=== PATIENT | male | born 1975 | race Caucasian/White ===

== ENCOUNTER 2022-10-21 15:16 | Outpatient (CLI) | payer OTHER, SELFPAY | END 2022-10-21 15:17 | disposition home or self-care (01) | LOC: ANHAUDIO 15:17 | PROVIDERS: PCP Nurse Practitioner Family; Visit Provider Nurse Practitioner Family | DX: H91.93 Unspecified hearing loss, bilateral (principal) | CPT/HCPCS: 99199 ==

== ENCOUNTER 2024-11-01 12:46 | Outpatient (CLI) | payer OTHER, SELFPAY ==
--- OUTSIDE RECORDS SUMMARY | 2024-11-01 13:24 | XMS_ITS ---
Author Organization [facility] Care Team Providers Care Research Test Engine Evaluator Name Role Phone COLIN GATES Unavailable Unavailable Ampadu, Kendall Unavailable Unavailable Allergies and adverse reactions No Known Allergies Care Team Name Role Address Phone Organization Dates Kendall Ampadu PCP [address] [place], [address], [place] (Office): : [facility] 03/25/2021 - 04/09/2021 COLIN GATES Attending Physician [address] [place], [address], [place] (Cell): [facility] 03/25/2021 - 04/09/2021 Immunizations Immunization Status Vaccine Details Vaccine Code CodeSystem Luis Angel e Notes SARS-COV-2 (COVID-19) completed SARS-COV-2 (COVID-19) vaccine, mRNA, spike protein, LNP, preservative free, 100 mcg/0.5mL dose or 50 mcg/0.25mL dose Mfg: Moderna Step 2 of Multi-step with next step required 207 CVX created date: 03/31/2021 administered date: 01/01/2021 SARS-COV-2 (COVID-19) completed SARS-COV-2 (COVID-19) vaccine, mRNA, spike protein, LNP, preservative free, 100 mcg/0.5mL dose or 50 mcg/0.25mL dose Mfg: Moderna Step 1 of Multi-step with next step required 207 CVX created date: 03/31/2021 administered date: 11/30/2020 Mental Status Section Date Assessment Total Score Description 04/09/2021 BIMS 13 cognitively int act CAM 0 No delirium ind icated PHQ-9 02 minimal depress ion 04/02/2021 BIMS 12 moderate cognit stephane impairment CAM 0 No delirium ind icated PHQ-9 02 minimal depress ion Problems Problem # Description Date of onset Resolved Date Code CodeSystem Concern Status 1 ALCOHOL ABUSE WITH WITHDRAWAL, UNSPECIFIED 03/25/[address] active 2 ANEMIA, UNSPECIFIED 03/25/[address] active 3 ANXIETY DISORDER, UNSPECIFIED 03/25/[address] active 4 DYSPHAGIA, OROPHARYNGEAL PHASE 03/25/[address] active 5 ELEVATION OF LEVELS OF LIVER TRANSAMINASE LEVELS 03/25/[address] active 6 ESSENTIAL (PRIMARY) HYPERTENSION 03/25/[address] active 7 HYPERLIPIDEMIA, UNSPECIFIED 03/25/[address] active 8 MAJOR DEPRESSIVE DISORDER, SINGLE EPISODE, UNSPECIFIED 03/25/[address] active 9 MUSCLE WEAKNESS (GENERALIZED) 03/25/[address] active 10 NEED FOR ASSISTANCE WITH PERSONAL CARE 03/25/[address] active 11 NICOTINE DEPENDENCE, CIGARETTES, UNCOMPLICATED 03/25/[address] active 12 OTHER ABNORMALITIES OF GAIT AND MOBILITY 03/25/[address] active 13 PERSONAL HISTORY OF OTHER DISEASES OF THE DIGESTIVE SYSTEM 03/25/[address] active 14 POLYNEUROPATHY, UNSPECIFIED 03/25/[address] active 15 RESTLESS LEGS SYNDROME 03/25/[address] active 16 SCHIZOAFFECTIVE DISORDER, UNSPECIFIED 03/25/[address] active 17 UNSPECIFIED CONVULSIONS 03/25/[address] active Reason for Referral No Reasons for Referral Entered Social History Social History Observation Description Start Date End Date Code Code System Current Smoking Status Tobacco smoking consumption unknown 694718720 SNOMED CT Sex Assigned At Male 1975 82661-[address] [facility] Vital Signs Code Code System Vitals Name Values and Units Timing Information 82220-[address] [facility] Pain Level Value=0.0 04/09/2021 33616-[address] [facility] Weight Klcll=545.0 Units=Lbs 87301-[address] [facility] O2 % BldC Oximetry Value=95.0 Units= % 03/29/2021 9279-[address] [facility] Respiratory Rate Value=22.0 Units=/m in 03/29/2021 8867-[address] [facility] Heart rate Ijofq=876.0 Units=/min 03/29/2021 8310-[address] [facility] Body Temperature Value=98.6 Units= F 03/29/2021 8462-[address] [facility] Blood Pressure-Diastolic Value=88 Un its=mmHg 03/29/2021 8480-[address] [facility] Blood Pressure-Systolic Ljupw=593 Un its=mmHg 03/29/2021
--- OUTSIDE RECORDS SUMMARY | 2024-11-01 13:24 | XMS_ITS | Patient Health Record ---
Author Organization [facility] Address [address] [place] [address] Care Team Providers Care Clinical Research Director Name Role Phone Brian Mendez Primary Care Provider [phone] Crystal Alvarez Unavailable [phone] Allergies Allergen (clinical drug ingredient) Drug/Non Drug Allergy documented on EMR Reaction Allergy Type Onset Date Status No Known Drug Allergy Unknown Drug Allergy Active No Known Food Allergy Unknown Drug Allergy Active Reason For Referral No Information Medications Medication SIG (Take, Route, Frequency, Duration) Notes Start Date End Date Status Rosuvastatin Calcium 20 MG 1 tablet Oral ly Once a day Active Gabapentin 800 MG 1 tablet Orally twic e a day Active NIFEdipine ER 30 MG 1 tablet Orally Once a day Active Thiamine HCl 100 MG 1 tablet Orally Once a day Not-Taking Multivitamin Adult - Orally for 30 days Not-Taking QUEtiapine Fumarate 200 MG 1 tablet Oral ly Once a day for 30 days Active Ibuprofen 200 MG 1 tablet with food o r milk as needed Orally Three times a day Active Folic Acid 1 MG 1 tablet Orally Once a day Not-Taking Amitriptyline HCl 25 MG 1 tablet Orally Once a day for 30 days Active hydrOXYzine HCl 25 MG 1 tablet as needed for anxiety Orally twice a day for 30 days Active carBAMazepine 200 MG 1 tablet Orally Twi ce a day Not-Taking Social History Tobacco Use: Social History Observation Description Date Details (start date - stop date) Current Smoker NA - NA Sex Assigned At : Social History Observation Description Sex Assigned At Male Dont use, Tobacco Use/Smoking Question Answer Notes Are you a current every day smoker Alcohol Screen (Audit-C) Question Answer Notes Did you have a drink contain ing alcohol in the past year? No How often did you have a dri nk containing alcohol in the past year? 4 or more times a week (4 points) How many drinks did you have on a typical day when you were drinking in the past year? 10 or more drinks (4 points) How often did you have 6 or more drinks on one occasion in the past year? Daily or almost daily (4 points) Points 12 Interpretation Positive PRAPARE Question Answer Notes Date Completed/Updated: 03/14/2018 What is your current housing situation? I do not have housing (staying with others, in a hotel, in a penitentiary, living outside on the street, on a beach, or in a park) Are you worried about losing your housing? No What is the highest level of school that you have finished? More than high school What is your current work situation? Unemployed and seeking work In the past year, have you o r any family members you live with been unable to get any of the following when it was really needed? Check all that apply I do not have problems meeting my needs Has lack of transportation k ept you from medical appointments, meetings, work or from getting things needed for daily living? Yes, it has kept me from medical appointments or from getting my medications,Yes, it has kept me from non-medical meetings, appointments, work, or getting things needed for daily living How often do you see or talk to people that you care about and feel close to? (For example: talking to friends on the phone, visiting friends or family, going to oriental orthodox or club meetings) More than 5 times a week How stressed are you? Stress is when someone feels tense, nervous, anxious, or can\t sleep at night because their mind is troubled Quite a bit In the past year have you sp ent more than 2 nights in a row in a long-term, long term, fdc center, or juvenile correctional facility? No Are you a refugee? No What country are you from? [place] Do you feel physically and e motionally safe where you currently live? Yes In the past year, have you b een afraid of your partner or ex-partner? No PRAPARE Score: 8 Tobacco Control (Standard) Question Answer Notes Tobacco use: Current every day smoker Additional Findings: Tobacco user Light cigarett e smoker (1-9 cigs/day) Section Notes: Problems Problem Type SNOMED Code ICD Code Onset Dates Problem Status W/U Status Risk Notes Problem Tobacco user (911691785) Nicotine dependence, unspecified, uncomplicated (F17.200) Active confirmed Problem Hypertension (53869010) Hypertension (I10) 3 Active confirmed Problem Depression (422670732) Depression (F32.9) 2 Active confirmed Problem Mood disorder (14210596) Mood disorder (F39) 3 Active confirmed Problem Substance abuse (26683140) Substance abuse (F19.10) Active confirmed Problem Anxiety (84698290) Anxiety (F41.9) Active confirmed Problem Neuropathy (596822496) Neuropathy (G62.9) Active confirmed Problem Disorder caused by alcohol (disorder) (762424164) Alcohol use disorder (F10.99) Active confirmed Problem Alcohol dependence (56728031) Alcohol use disorder, severe, dependence (F10.20) Active confirmed Problem Tooth infection (K04.7) Active confirmed Vital Signs Heart Rate 102 /min 04/10/2024 Temperature 97.3 degrees Fahrenheit 04/10/2024 Respiratory Rate 18 /min 04/10/2024 Blood pressure diastolic 60 mm Hg 04/10/2024 Oximetry 98 % 04/10/2024 Height 72 in 04/10/2024 Blood pressure systolic 122 mm Hg 04/10/2024 Weight 177.8 lbs 04/10/2024 BMI 24.11 kg/m2 04/10/2024 Encounters Encounter Location Date Provider Diagnosis [address] [place] [address] 04/10/2024 Crystal Alvarez Nicotine dependence, unspecified, uncomplicated F17.200 ; Alcohol use disorder F10.99 ; Mood disorder F39 ; Depression F32.9 ; Anxiety F41.9 and Therapeutic drug monitoring Z51.81 Assessments Encounter Date Diagnosis (ICD Code) Assessment Notes Treatment Notes Treatment Clinical Notes Section Notes 04/10/2024 Nicotine dependence, unspecified, uncomplicated (ICD-10 - F17.200) 04/10/2024 Alcohol use disorder (ICD-10 - F10.99) Pt reports that he has been drinking daily since being out of his meds for the past week. Educated pt on importance of not drinking alcohol while taking RX meds. Pt reports that he has been talking with a heading repairer at [facility] about possible detox/rehab 04/10/2024 Mood disorder (ICD-10 - F39) Pt reports that he has been on Seroquel for years and reports that he is doing well on med at this time. RN called Ankit in [place] and verified medication list/doses t 04/10/2024 Depression (ICD-10 - F32.9) Will refill Amitriptyline at this time. Pt reports that he has been on medication retirement and is tolerating medication well. Pt denies SI/Hi at this time. Pt is not interested in therapy at this time. 04/10/2024 Anxiety (ICD-10 - F41.9) Will refill Hydroxyzine at this time. 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 Educated pt NOT to drink alcohol while taking RX meds. Routine labs ordered at this time. 04/10/2024 Therapeutic drug monitoring (ICD-10 - Z51.81) 04/10/2024 Other Discussed sleep hygiene and caffeine intakeDiscussed medication efficacy and purpose Also discussed medication interactions, risks, benefits and side effects. No additional questions concerning medications at this time.Discussed treatment planReturn to clinic 4 weeksRoutine labs ordered; pt agrees to call for an appt as labs cannot be completed today due to computer issues Encouraged counselingDiscussed treatment plan; patient is agreeable and accepting of treatment plan. Patient denies further questions or concerns at this time. Reasons, potential benefits, interactions and side effects of all medications were discussed.The Patient/Guardian asked appropriate questions, appeared to understand the answers, and decided to accept the treatment and continue being followed.The Patient/Guardian is aware of the need to contact the office or return for an earlier appointment if any problems or concerns arise. May also contact the 24-hour crisis hotline (R), refer to the closest emergency room or call 911 if new symptoms arise of existing symptoms worsen; the Patient/Guardian is aware that this would apply to symptoms such as: suicidal ideation, homicidal ideation, high risk behaviors, manic symptoms, psychotic symptoms, physical symptoms, or any other symptoms that may be dangerous to self or others.Greater than 50% of time spent on coordination and counseling where psychopharmacology as well as psychotherapeutic interventions patient made aware that this provider will be leaving [facility] as of 05/08/2024 and he will be transitioned to a new provider at that time. Plan Of Treatment No Information Insurance Providers Payer Name Payer Address Payer Phone Subscriber Number Group Number Insured Name Patient Relationship to Insured Coverage Start Date Coverage End Date [employer] [address] [place] [phone] [id number] [employer] Self - patient is the insured 8 [employer] [address] [place] [phone] [id number] [employer] Self - patient is the insured 1 Medications Administered Medication Instructions Date of Administration Dosage Notes Vivitrol 2018 380 mg landscape supervisor A humaira. Pt tolerated well. no concerns voiced. Celine Davila RN Sample used. Medical (General) History Medical History History ICD Code anxiety Numbness in his feet and hands. HTN Surgical History Surgery Date(Month/Year) left index finger 11/10/2017 neck surgery Hospitalization History Reason Date(Month/Year) coma - pancritis 2016
--- OUTSIDE RECORDS SUMMARY | 2024-11-01 13:24 | XMS_ITS ---
Author Organization [facility] Address [address] [place] [address] Care Team Providers Care Ocean Import Representative Name Role Phone Brian Mendez Primary Care Provider [phone] Crystal Alvarez Unavailable [phone] Allergies Allergen (clinical drug ingredient) Drug/Non Drug Allergy documented on EMR Reaction Allergy Type Onset Date Status No Known Drug Allergy Unknown Drug Allergy Active No Known Food Allergy Unknown Drug Allergy Active REASON FOR VISIT new patient Medications Medication SIG (Take, Route, Frequency, Duration) Notes Start Date End Date Status Gabapentin 800 MG 1 tablet Orally twic e a day Active NIFEdipine ER 30 MG 1 tablet Orally Once a day Active Ibuprofen 200 MG 1 tablet with food o r milk as needed Orally Three times a day Active Folic Acid 1 MG 1 tablet Orally Once a day Not-Taking carBAMazepine 200 MG 1 tablet Orally Twi ce a day Not-Taking Rosuvastatin Calcium 20 MG 1 tablet Oral ly Once a day Active Thiamine HCl 100 MG 1 tablet Orally Once a day Not-Taking QUEtiapine Fumarate 200 MG 1 tablet Oral ly Once a day for 30 days Active Amitriptyline HCl 25 MG 1 tablet Orally Once a day for 30 days Active hydrOXYzine HCl 25 MG 1 tablet as needed for anxiety Orally twice a day for 30 days Active Multivitamin Adult - Orally for 30 days Not-Taking Social History Tobacco Use: Social History Observation Description Date Details (start date - stop date) Current Smoker NA - NA Sex Assigned At : Social History Observation Description Sex Assigned At Male Tobacco Control (Standard) Question Answer Notes Tobacco use: Current every day smoker Additional Findings: Tobacco user Light cigarett e smoker (1-9 cigs/day) Problems Problem Type SNOMED Code ICD Code Onset Dates Problem Status W/U Status Risk Notes Problem Anxiety (81922413) Anxiety (F41.9) Active confirmed Vital Signs Weight 177.8 lbs 04/10/2024 Heart Rate 102 /min 04/10/2024 Oximetry 98 % 04/10/2024 Temperature 97.3 degrees Fahrenheit 04/10/20 Respiratory Rate 18 /min 04/10/2024 Height 72 in 04/10/2024 BMI 24.11 kg/m2 04/10/2024 Blood pressure systolic 122 mm Hg 04/10/20 Blood pressure diastolic 60 mm Hg 024 Encounters Encounter Location Date Provider Diagnosis [address] [place] [address] 04/10/2024 Crystal Alvarez Nicotine dependence, unspecified, uncomplicated [...] that he has been talking with a coke handling supervisor at [place] about possible detox/rehab 04/10/2024 Mood disorder (ICD-10 - F39) Pt reports that he has been on Seroquel for years and reports that he is doing well on med at this time. RN called [facility] in [place] and verified medication list/doses t 04/10/2024 Depression (ICD-10 - F32.9) Will refill Amitriptyline at this time. Pt reports that he has been on medication half-way and is tolerating medication well. Pt denies SI/Hi at this time. Pt is not interested in therapy at this time. 04/10/2024 Anxiety (ICD-10 - F41.9) Will refill Hydroxyzine at this time. Pt reports that he has been on med half-way. Educated pt NOT to drink alcohol while [...] May also contact the 24-hour crisis hotline ([facility]), refer to the closest emergency room or [...] aware that this provider will be leaving [facility] as of 05/08/2024 and he will be transitioned to a new provider at that time. Plan Of Treatment Medication Medication Name Sig Start Date Stop Date Notes QUEtiapine Fumarate 200 MG 1 tablet Oral ly Once a day for 30 days Amitriptyline HCl 25 MG 1 tablet Orally Once a day for 30 days hydrOXYzine HCl 25 MG 1 tablet as needed for anxiety Orally twice a day for 30 days Treatment Notes Assessment Notes Alcohol use disorder Pt reports that he has been drinking daily since being out of his meds for the past week. Educated pt on importance of not drinking alcohol while taking RX meds. Pt reports that he has been talking with a coke handling supervisor at [place] about possible detox/rehab Mood disorder Pt reports that he h as been on Seroquel for years and reports that he is doing well on med at this time. RN called [facility] in [place] and verified medication list/doses Depression Will refill Amitript yline at this time. Pt reports that he has been on medication half-way and is tolerating medication well. Pt denies SI/Hi at this time. Pt is not interested in therapy at this time. Anxiety Will refill Hydroxyz ine at this time. 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 Educated pt NOT to drink alcohol while taking RX meds. Routine labs ordered at this time. Other Discussed sleep hygiene and caffeine intakeDiscussed [...] aware that this provider will be leaving [facility] as of 05/08/2024 and he will be transitioned to a new provider at that time. Next Appt Details Follow Up: 4 Weeks, Reason: Medication management - can be telehealth appt. Progress Notes * Onofre HYDE:1975 (49 yo M)Acc No.[id number]:04/10/2024 Patient: Gage MIKE Provider: Vanessa ALVAREZ, MSN, SPORTS TEACHER-C, PMHNP- :1975 A ge:49 Y S ex:Male Date:04/10/2024 Address:[address] [place], [place] [id number] Pcp:Brian Mendez Check In:10:33 AM [employer] Subjective: * Chief Complaints: * N ew patient * HPI: I nterim History: Emergency room visit N o. W as hospitalized N o.? D epression Screening: PHQ-9 L ittle interest or pleasure in doing things N ot at all, F eeling down, depressed, or hopeless N early every day, T rouble falling or staying asleep, or sleeping too much S everal days, F eeling tired or having little energy Several days, P oor appetite or overeating N ot at all, F eeling bad about yourself or that you are a failure, or have let yourself or your family down S everal days, T rouble concentrating on things, such as reading the newspaper or watching television S everal , M oving or speaking so slowly that other people could have noticed; or the opposite, being so fidgety or restless that you have been moving around a lot more than usual S everal days, T houghts that you would be better off or of hurting yourself in some way N ot at all, T otal Score 8 , I nterpretation M ild Depression. S creening: [place] Suicide Severity Rating Scale (LF) D o you want to initiate with S creener form, 1 . Wish to be : Have you wished you were or wished you could go to sleep and not wake up? N o, 2 . Suicidal Thoughts: Have you actually had any thoughts of killing yourself? N o, 6 . Suicide Behaviour: Have you ever done anything,started to do anything, or prepared to end your life? N o, I nterpretation: L ow Risk. G AD-7 Screenin. Feeling nervous, anxious, or on edge : , Nearly every day-3. 2 . Not being able to stop or control worrying : , Several days-1. 3 . Worrying too much about different things : , Nearly every day-3. 4 . Trouble sleeping/relaxing : , Nearly every day-3. 5 . Being so restless that it is hard to sit still : , Several days-1.?6. Becoming easily annoyed or irritable : , Nearly every day-3. 7 . Feeling afraid, as if something awful might happen : , Not at all-0. G AD-7 Score T otal score 1 4 :.? M ood Disorder Questionnaire 02-02-22: Please answer each question to the best of your ability. Questions P lease answer each question to the best of your ability. H as there ever been a time period when you were not your usual self and..., Y ou felt so good or hyper that other people thought you were not your normal self or you were so hyper that you got into trouble? Y es ., Y ou were so irritable that you shouted at people or started fights or arguments? N o ., Y ou got much less sleep than usual and found that you didn't really miss it? N o ., Y ou felt much more self-confident than usual? N o ., Y ou were more talkative or spoke much faster than usual? Y es ., T houghts raced through your head or you couldn't slow your mind down? Y es ., Y ou were so easily distracted by things around you that you had trouble concentrating or staying on track? N o ., Y ou had more energy than usual? Y es ., Y ou were more active or did many more things than usual? N o ., Y ou were more social or outgoing than usual, for example, you telephoned friends in the middle of the night? N o ., Y ou were more interested in sex than usual? Y es ., Y ou did things that were usual for you or that other people might have thought were excessive, foolish, or risky??No ., S pending money got you or your family in trouble? Y es ., I f you checked YES to more than one of the above, have several of these ever happened during the same period of time??No ., H ow much of a problem did any of these cause you - like being unable to work; having family, money or legal troubles; getting into arguments or fights? M oderate problem .. C SSRS Interpretation and Follow Up Plan: CSSRS Interpretation and Follow Up Plan. CSSRS Interpretation and Follow Up Plan C SSRS Screen documented using SF Y es, M oderate or High risk requires selection of a follow up plan C SSRS No/Low: intervention not needed at this time. P [facility] follow-up: Action Plans for Clinical Quality Measures: C olorectal Cancer Screening: D iscussed need for colorectal cancer screening. Patient declined.. . C onstitutional: Expectations of this visit- [age]-year-old male presents to clinic via in-person for initial psychiatric evaluation. Patient reports I am needing refills on my Amitriptyline and Hydroxyzine; I was getting them from my primary care doctor but he is a joke and I am not seeing him anymore. I have been on these meds for depression and anxiety and I feel like the medications have been working well for me. I have been taking these meds for a few years now. I am working right now but I am not going to tell you what I do. My sleep is shitty and I need to eat more. Pt reports that he was in alcohol rehab in October; pt reports that he continues to drink. Pt reports that he has been off of his meds for the past 6 days and reports that he finds himself drinking when he is not on his meds. Pt reports that he was admitted to [facility] last month after I told them that I was suicidal so I could get my meds refilled. Pt reports that he take Gabapentin for neuropathy PHQ-9 score is 8 today. DANYELLE-7 score is 14 today. Mood Questionnaire is (-) today. INITIAL MHA: Today; reports that he did see a psych provider when he was in rehab earlier this year? Information provided by?- Patient Triggers- Alcohol, thinking about shit and I know that I can do more. What helps/Coping mechanisms? Drinking alcohol Goals- Get back on meds, buy a house, get a vehicle, decrease alcohol use Sleep- crappy because I don't have my meds; I think I am only sleeping like 4 hours Appetite- Eating well Depression-- I don't know to be honest; I would say a 7 Hopeless/helpless- always since I haven't had my medicine Guilty/Worthless Denies Interest level- Normal Concentration- Normal Crying spells Denies Energy Level- Normal Weight loss/Weight gain Reports weight loss due to decreased appetite Anxiety- It is up there Panic Attacks Denies Social Phobias Denies nightmares/Flashbacks Denies Anger/irritability- Only when provoked Racing thoughts- yeah it does now since I don't have my medicines Distractible- Denies Indiscretion/Inhibition- yes; I do that all the time Risk taking- Denies Grandiosity- Denies Increased activity- Denies Missed sleep and still felt good- Denies Talkativeness- when I am drinking Impulsivity- Yes Suicidal Ideation- Denies Suicidal attempts- Denies Self-Harm-- Denies Homicidal Ideation- Denies Hallucinations- Denies Paranoia- Denies Delusions- Denies OCD-- Denies Animal cruelty or fire setting Denies PAST PSYCHIATRIC HISTORY-- Past Diagnosis--- Depression, Anxiety ADHD/learning disabilities as child: Denies Psychiatric Medications- Current substance use - Current meds: Hydroxyzine, Amitriptyline, Seroquel Past meds: none Substance use: daily alcohol use Medication Adherence- Medication efficacy- Side effects- Past Psychiatric Hospitalizations/Counseling Hospitalizations: last month X 1 day to get medications refilled Counseling: None MEDICAL HISTORY-- Allergies- NKDA Other Medications- See med list Medical Concerns- HTN, neuropathy Therapist- None Primary Care Physician- Currently looking new for a new PCP FAMILY HEALTH HISTORY- - SOCIAL HISTORY- Smoking history--- Reports smoking 0.25 ppd X 30 years Drug/alcohol use Substance Alcohol Last use: today; reports having 1 beer this AM Marijuana Last use: 4 months ago cocaine Last use: 30 years ago Heroin Last use: never Meth Last use: 30 years ago LSD/PCP Last use: 32 years ago IV drugs Last use: Never OTC/Rx drugs See med list location- [facility], [place] Current home location- [place], [place] Who lives at home? [id number] Siblings? Children? Siblings: 6 brothers, 3 sisters; children: 3 sons Relationships? 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 * ROS: * PSYCH ROS2: Elevated mood symptoms D enies. A dmits m ood swings. T houghts of self harm D enies. D enies H omicidal thoughts. H yperactivity? Denies. I nattention Denies. B ehavior concerns D enies. D isruptive behavior Denies. O bsessive behavior D enies. A dmits A nxiety. D enies A uditory/visual hallucinations. D enies D elusions. A dmits D epressed mood. A dmits D ifficulty sleeping. D enies E ating disorder. L oss of appetite A dmits. Denies P sychiatric condition. D enies S tressors. A dmits S ubstance abuse.?Denies S uicidal thoughts. * Medical History: * Surgical History: l eft index finger 11/10/2017neck surgery * Hospitalization/Major Diagno stic Procedure: c rebecca - pancritis 2016 * Family History: F ather: , killed by drunk pile driver operator helper. M other: alive. 6 brother(s) , 3 sister(s) - healthy. 3 son(s) - healthy. . * Social History: P rimary Social History: L iving Arrangement L iving Arrangement: D ependent Living, L iving with: Rachael sanchez, I s this a supportive environment? Y es. A lcohol Use A lcohol Use Frequency: Weekly or Daily, T ype of alcohol consumed B eer, Q uanity consumed on those occasions M ore than 6 10-12 cans of beer daily.. I llicit Substance Usage I llicit Substance Usage: No .. E mployment Status E mployment Status: U nemployed. T obacco Use: T obacco Control (Standard) T obacco use: C urrent every day smoker, A dditional Findings: Tobacco user L ight cigarette smoker (1-9 cigs/day). M iscellaneous: M ethod of learning P referred method of learning: R eading,Discussion,Demonstration,Hearing. * Medications: T akingRosuvastatin Calcium 20 MG Tablet 1 tablet Orally Once a day QUEtiapine Fumarate 200 MG Tablet 1 tablet Orally Once a day NIFEdipine ER 30 MG Tablet Extended Release 24 Hour 1 tablet Orally Once a day Gabapentin 800 MG Tablet 1 tablet Orally twice a day Ibuprofen 200 MG Tablet 1 tablet with food or milk as needed Orally Three times a day Amitriptyline HCl 25 MG Tablet 1 tablet Orally Three times daily hydrOXYzine HCl 25 MG Tablet 1 tablet as needed for anxiety Orally twice a day Taking Rosuvastatin Calcium 20 MG Tablet 1 tablet Orally Once a day Taking QUEtiapine Fumarate 200 MG Tablet 1 tablet Orally Once a day Taking NIFEdipine ER 30 MG Tablet Extended Release 24 Hour 1 tablet Orally Once a day Taking Gabapentin 800 MG Tablet 1 tablet Orally twice a day Taking Ibuprofen 200 MG Tablet 1 tablet with food or milk as needed Orally Three times a day Taking Amitriptyline HCl 25 MG Tablet 1 tablet Orally Three times daily Taking hydrOXYzine HCl 25 MG Tablet 1 tablet as needed for anxiety Orally twice a day Not-TakingFolic Acid 1 MG Tablet 1 tablet Orally Once a day carBAMazepine 200 MG Tablet 1 tablet Orally Twice a day Multivitamin Adult - Tablet Orally Thiamine HCl 100 MG Tablet 1 tablet Orally Once a day Medication List reviewed and reconciled with the patientNot-Taking Folic Acid 1 MG Tablet 1 tablet Orally Once a day Not-Taking carBAMazepine 200 MG Tablet 1 tablet Orally Twice a day Not-Taking Multivitamin Adult - Tablet Orally Not-Taking Thiamine HCl 100 MG Tablet 1 tablet Orally Once a day Medication List reviewed and reconciled with the patient * Allergies: N o Known Drug AllergyNo Known Food Allergyno[Allergies Verified] Objective: * Vitals: I nitials:kjs, Wt:177.8, Ht:72, BMI:24.11, BP:122/60, HR:102, Oxygen sat %:98, Temp:97.3, RR:18, Pain scale:7. * Examination: G eneral Examination: GENERAL APPEARANCE: a lert, well hydrated, in no distress, pleasant, in no acute distress, comfortable, calm and relaxed, cooperative. PSYCH: f ull range of affect/positive mood, good eye contact, speech clear, no auditory or visual hallucinations, alert, oriented x4, judgement and insight fair, fund of knowledge fair, denies any current thoughts/plans of suidicial/homicidal ideation, No suicidal or homicidal ideation. Assessment: * Assessment: 1. N icotine dependence, unspecified, uncomplicated - F17.200 2 . A lcohol use disorder - F10.99 3 . M ood disorder - F39 4 . D epression - F32.9 5 . A nxiety - F41.9 6 . T herapeutic drug monitoring - Z51.81 Plan: * Treatment: 2. M ood disorder Refill QUEtiapine Fumarate Tablet, 200 MG, 1 tablet, Orally, Once a day, 30 days, 30, Refills 1.? Notes: Pt reports that he has been on Seroquel for years and reports that he is doing well on med at this time. RN called [facility] in [place] and verified medication list/doses Clinical Notes: t 3. D epression Refill Amitriptyline HCl Tablet, 25 MG, 1 tablet, Orally, Once a day, 30 days, 30 Tablet, Refills 1. Notes: Will refill Amitriptyline at this time. Pt reports that he has been on medication half-way and is tolerating medication well. Pt denies SI/Hi at this time. Pt is not interested in therapy at this time. 4. A nxiety Refill hydrOXYzine HCl Tablet, 25 MG, 1 tablet as needed for anxiety, Orally, twice a day, 30 days, 60 Tablet, Refills 1. Notes: Will refill Hydroxyzine at this time. 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 Educated pt NOT to drink alcohol while taking RX meds. Routine labs ordered at this time. 5. T herapeutic drug monitoring L AB: 12 Panel Urine Drug Screen (Ordered for 04/10/2024) L AB: CBC With Differential/Platelet* (Ordered for 04/10/2024) L AB: CMP 14 Comprehensive Metabolic Panel* (Ordered for 04/10/2024) L AB: Vitamin B12* (Ordered for 04/10/2024) L AB: Vitamin D, 25-Hydroxy* (Ordered for 04/10/2024) L AB: Lipid Panel* (Ordered for 04/10/2024) L AB: Hemoglobin A1c* (Ordered for 04/10/2024) L AB: TSH+Free T4* (Ordered for 04/10/2024) L AB: Folate (Folic Acid), Serum* (Ordered for 04/10/2024) 6. O thers Notes: Discussed sleep hygiene and caffeine intakeDiscussed medication [...] May also contact the 24-hour crisis hotline ([facility]), refer to the closest emergency room or [...] made aware that this provider will be [facility] as of 05/08/2024 and he will be transitioned to a newprovider at that time. * Recommended Wellness and Pre vention Guidelines: * S tatus A lert L ast Done N ext Due A ction Taken N ONCOMPLIANT C olorectal cancer screening - 0 04/10/2024 - * Procedure Codes: 9 9406 BEHAV CHNG SMOKING 3-10 MIN * Preventive Medicine: Counseling: S MOKING: P atient counselled on the dangers of tobacco use and urged to quit. . . * Follow Up: 4 Weeks (Reason: Medication management - can be telehealth appt.) * * Sign off status: Completed true * Provider: Vanessa ALVAREZ, MSN, SPORTS TEACHER-C, PMHNP-BC Date: 0 04/10/2024 Generated for Emily knott/Latricia/Jakobitting on: 0 11/01/2024 01:24 PM CDT History and Physical Notes * HPI (History of Present Illness) Category Sub-Category Detail Notes Category Not es Interim History Was hospitalized No Emergency room visit No Depression Screening PHQ-9 Little inte rest or pleasure in doing things: Not at all Feeling down, depressed, or hopeless: Ne jud every day Trouble falling or staying asleep, or sl eeping too much: Several days Feeling tired or having little energy: S everal days Poor appetite or overeating: Not at all Feeling bad about yourself o r that you are a failure, or have let yourself or your family down: Several days Trouble concentrating on thi ngs, such as reading the newspaper or watching television: Several days Moving or speaking so slowly that other people could have noticed; or the opposite, being so fidgety or restless that you have been moving around a lot more than usual: Several days Thoughts that you would be b nory off or of hurting yourself in some way: Not at all Total Score: 8 Interpretation: Mild Depression Intervention Depression Screening Findings: P ositive Follow-Up for Depression: No Referral necessary, patient involved in behavioral health treatment . Constitutional Expectations of this visit- 49-year-old male presents to clinic via in-person for initial psychiatric evaluation. Patient reports I am needing refills on my Amitriptyline and Hydroxyzine; I was getting them from my primary care doctor but he is a joke and I am not seeing him anymore. I have been on these meds for depression and anxiety and I feel like the medications have been working well for me. I have been taking these meds for a few years now. I am working right now but I am not going to tell you what I do. My sleep is shitty and I need to eat more. Pt reports that he was in alcohol rehab in October; pt reports that he continues to drink. Pt reports that he has been off of his meds for the past 6 days and reports that he finds himself drinking when he is not on his meds. Pt reports that he was admitted to [facility] last month after I told them that I was suicidal so I could get my meds refilled. Pt reports that he take Gabapentin for neuropathy PHQ-9 score is 8 today. DANYELLE-7 score is 14 today. Mood Questionnaire is (-) today. INITIAL MHA: Today; reports that he did see a psych provider when he was in rehab earlier this year Information provided by?- Patient Triggers- Alcohol, thinking about shit and I know that I can do more. What helps/Coping mechanisms? Drinking alcohol Goals- Get back on meds, buy a house, get a vehicle, decrease alcohol use Sleep- crappy because I don't have my meds; I think I am only sleeping like 4 hours Appetite- Eating well Depression-- I don't know to be honest; I would say a 7 Hopeless/helpless- always since I haven't had my medicine Guilty/Worthless Denies Interest level- Normal Concentration- Normal Crying spells Denies Energy Level- Normal Weight loss/Weight gain Reports weight loss due to decreased appetite Anxiety- It is up there Panic Attacks Denies Social Phobias Denies nightmares/Flashbacks Denies Anger/irritability- Only when provoked Racing thoughts- yeah it does now since I don't have my medicines Distractible- Denies Indiscretion/Inhibition- yes; I do that all the time Risk taking- Denies Grandiosity- Denies Increased activity- Denies Missed sleep and still felt good- Denies Talkativeness- when I am drinking Impulsivity- Yes Suicidal Ideation- Denies Suicidal attempts- Denies Self-Harm-- Denies Homicidal Ideation- Denies Hallucinations- Denies Paranoia- Denies Delusions- Denies OCD-- Denies Animal cruelty or fire setting Denies PAST PSYCHIATRIC HISTORY-- Past Diagnosis--- Depression, Anxiety ADHD/learning disabilities as child: Denies Psychiatric Medications- Current substance use - Current meds: Hydroxyzine, Amitriptyline, Seroquel Past meds: none Substance use: daily alcohol use Medication Adherence- Medication efficacy- Side effects- Past Psychiatric Hospitalizations/Counseling Hospitalizations: last month X 1 day to get medications refilled Counseling: None MEDICAL HISTORY-- Allergies- NKDA Other Medications- See med list Medical Concerns- HTN, neuropathy Therapist- None Primary Care Physician- Currently looking new for a new PCP FAMILY HEALTH HISTORY- - SOCIAL HISTORY- Smoking history--- Reports smoking 0.25 ppd X 30 years Drug/alcohol use Substance Alcohol Last use: today; reports having 1 beer this AM Marijuana Last use: 4 months ago cocaine Last use: 30 years ago Heroin Last use: never Meth Last use: 30 years ago LSD/PCP Last use: 32 years ago IV drugs Last use: Never OTC/Rx drugs See med list location- [place], [place] Current home location- [place], [place] Who lives at home? [id number] Siblings? Children? Siblings: 6 brothers, 3 sisters; children: 3 sons Relationships? I am not going there; that is an iffy situation (2-3 words) Describe childhood- [place] ; [place]physical/verbal/mental/sexual) Abuse/Trauma - Denies Education- GED and welding Occupation/Job history- Works with [employer] Hobbies/Interests- Fishing, shooting guns, hunting Social Activities-- Spending time with friends, lilliam shooting Spiritual Affiliation- yes Probation/Legal trouble/?- Denies DANYELLE-7 Screening 1. Feelin g nervou s, anxiou s, or on edge : , Nearly every day-3 2. Not being able to stop or control wor rying :, Several days-1 3. Worrying too much about different thi ngs :, Nearly every day-3 4. Trouble sleeping/relaxing :, Nearly e very day-3 5. Being so restless that it is hard to sit still :, Several days-1 6. Becoming easily annoyed or irritable :, Nearly every day-3 7. Feeling afraid, as if something awful might happen :, Not at all-0 DANYELLE-7 Score Total score: 14 : Screening [place] Suicide Sev erity Rating Scale (LF) Do you want to initiate with: Screener form 1. Wish to be : Have you wished you were or wished you could go to sleep and not wake up?: No 2. Suicidal Thoughts: Have you actually had any thoughts of killing yourself?: No 6. Suicide Behavior Question: Have you ever done anything,started to do anything, or prepared to end your life?: No Interpretation:: Low Risk Mood Disorder Questionnaire 6-22-22 Questions Please answer each question to the best of your ability.: Has there ever been a time period when you were not your usual self and... You felt so good or hyper th at other people thought you were not your normal self or you were so hyper that you got into trouble?: Yes . You were so irritable that y ou shouted at people or started fights or arguments?: No . You got much less sleep than usual and found that you didn't really miss it?: No . You felt much more self-confident than u sual?: No . You were more talkative or spoke much fa ster than usual?: Yes . Thoughts raced through your head or you couldn't slow your mind down?: Yes . You were so easily distracte d by things around you that you had trouble concentrating or staying on track?: No . You had more energy than usual?: Yes . You were more active or did many more th ings than usual?: No . You were more social or outg oing than usual, for example, you telephoned friends in the middle of the night?: No . You were more interested in sex than usu al?: Yes . You did things that were usu al for you or that other people might have thought were excessive, foolish, or risky?: No . Spending money got you or your family in trouble?: Yes . If you checked YES to more t galloway one of the above, have several of these ever happened during the same period of time?: No . How much of a problem did an y of these cause you - like being unable to work; having family, money or legal troubles; getting into arguments or fights?: Moderate problem . Do Not Use CSSRS Interpretation and Follow Up Plan CSSRS Interpretation and Follow Up Plan CSSRS Screen documented using SF: Yes Moderate or High risk requir es selection of a follow up plan: CSSRS No/Low: intervention not needed at this time Preventative Health and Wellness follow-up Action Plans for Clinical Quality Measures: Colorectal Cancer Screening:: Discussed need for colorectal cancer screening. Patient declined. . Examination Category Sub-Category Detail Notes Category Not es General Examination GENERAL APPEARANCE: alert, w ell hydrated, in no distress, pleasant, in no acute distress, comfortable, calm and relaxed, cooperative PSYCH: full range of affect /positive mood, good eye contact, speech clear, no auditory or visual hallucinations, alert, oriented x4, judgement and insight fair, fund of knowledge fair, denies any current thoughts/plans of suidicial/homicidal ideation, No suicidal or homicidal ideation
--- OUTSIDE RECORDS SUMMARY | 2024-11-01 13:25 | XMS_ITS | Clinical Summary ---
Author Organization [facility] Address [address] [place] [address] Care Team Providers Care Loop Drier Operator Name Role Phone Jordan Grigsby Primary Care Provider [phone] Source Comments [facility],non-owned Affiliates and Associated Physician Practices is amultiple site organization consisting of ambulatory clinics and hospital sitesin [place], [place], [place] and [place]. This disclosure is being madepursuant to the Care Everywhere program and may not contain all information available regarding this patient. Last updated 18.[facility] Allergies No known active allergies Medications * Be aware that medications may not be up to date on this document. Alwaysverify current medications with the patient. Medication Sig Dispensed Refills Start Date End Date Status hydrochlorothiazide (MICROZIDE) 12.5 MG capsule Take 12.5 mg by mouth once daily. Active citalopram (CELEXA) 20 MG tablet Take 20 mg by mouth once daily. Active amLODIPine (NORVASC) 5 MG tablet Take 5 mg by mouth once daily Active amitriptyline (ELAVIL) 50 MG tablet Take 50 mg by mouth at bedtime Active atorvastatin (LIPITOR) 10 MG tablet Take 10 mg by mouth at bedtime Active meloxicam (MOBIC) 15 MG tablet Take 15 mg by mouth once daily Active pregabalin (LYRICA) 50 MG capsule Take 50 mg by mouth 3 times daily Active chlordiazePOXIDE (LIBRIUM) 25 MG capsule Take 1 Cap by mouth 3 times daily as needed for Anxiety or Agitation 15 Cap 0 07/30/2015 Active diazepam (VALIUM) 5 MG tablet Take 1 Tab by mouth 2 times daily as needed for Anxiety 6 Tab 0 07/30/2015 Active amitriptyline (ELAVIL) 25 MG tablet Take 1 tablet by mouth once daily 30 tablet 12/01/2017 Active gabapentin (NEURONTIN) 300 MG capsule Take 3 capsules by mouth 3 times daily 90 capsule 12/01/2017 Active cephalexin (KEFLEX) 500 MG capsule 11/10/2017 Active gabapentin (NEURONTIN) 800 MG tablet TK 1 T PO TID 3 10/18/2017 Active HYDROcodone-acetami nophen (NORCO) 5-325 MG tablet TK 1-2 TS PO Q 4-6 H PRN 0 11/16/2017 Active HYDROcodone-acetami nophen (NORCO) 10-325 MG tablet TK 1 T PO Q 8 HOURS PRN FOR PAIN 0 08/25/2017 Active omeprazole (PRILOSEC) 20 MG capsule TK 1 C PO D 3 09/04/2017 Active mirtazapine (REMERON) 30 MG tablet Take 1 tablet by mouth at bedtime 30 tablet 5 09/11/2018 Active hydrOXYzine pamoate (VISTARIL) 50 MG capsule Take 1 capsule by mouth 3 times daily as needed 90 capsule 3 03/08/2019 Active Immunizations Name Administration Dates Next Due TDAP (7yrs+) 12/14/2011 Social History Tobacco Use Types Packs/Day Years Used Date Smoking Tobacco: Every Day Cigarettes Tobacco Cessation:Ready to Q uit: Yes; Counseling Given: Yes Alcohol Use Standard Drinks/Week Comments Yes 0 (1 standard drink = 0.6 oz pur e alcohol) Sex and Gender Information Value Date Recorded Sex Assigned at Not on file Gender Identity Not on file Sexual Orientation Not on file Last Filed Vital Signs Vital Sign Reading Time Taken Comments Blood Pressure 104/76 12/07/2016 10:31 AM CDT Pulse 116 12/07/2016 10:31 AM CDT Temperature 36.8 C (98.2 F) 12/07/2016 10:31 AM CDT Respiratory Rate 20 12/07/2016 10:31 AM CDT Oxygen Saturation 97% 08/22/2016 1:49 PM SOLE CONDITIONER Inhaled Oxygen Concentration - - Weight 81.9 kg (180 lb 9.6 oz) 12/07/2016 10:31 AM CDT Height 152.4 cm (5') 12/07/2016 10:31 AM CDT Body Mass Index 35.27 12/07/2016 10:31 AM CDT Plan of Treatment Health Maintenance Due Date Last Done Comments COLOGUARD (AGES 45-75) - COL ON CA SCREENING 1974 COLON MONITORING 1974 COLONOSCOPY - COLON CA SCREENING 1974 CT COLONOGRAPHY - COLON CA SCREENING 1974 Colorectal Cancer Screening 1974 FIT - COLON CA SCREENING 1974 FLEX SIG - COLON CA SCREENING 1974 HIV SCREENING 1989 HEPATITIS C SCREENING 03/14/1992 HEPATITIS B VACCINE (1 of 3 - 19+ 3-dose series) 1993 PNEUMOCOCCAL VACCINE 50+ (1 of 2 - PCV) 1993 PNEUMOCOCCAL VACCINE (1 of 2 - PCV) 1993 DTAP/TDAP/TD VACCINES (2 - T d or Tdap) 12/13/2021 12/14/2011 ZOSTER VACCINE (1 of 2) 2024 COVID-19 VACCINE (3 - 2023-2 5 season) 2024 01/01/2021, 11/30/2020 INFLUENZA VACCINE (#1) 2024 DEPRESSION SCREENING 08/14/2024 HIB VACCINE Aged Out No longer eligi ble based on patient's age to complete this topic HPV VACCINE Aged Out No longer eligi ble based on patient's age to complete this topic MENINGOCOCCAL (Group B) VACCINE SHARED DECISION-MAKING Aged Out No longer eligible based on patient's age to complete this topic MENINGOCOCCAL GROUPS A/C/Y/W VACCINE Aged Out No longer eligible b ased on patient's age to complete this topic Advance Directives * FULL RESUSCITATION (Latest Code Status on File) Date Activated Date Inactivated Comments 12/14/2011 5:04 PM 12/16/2011 11:43 PM Care Teams Loop Drier Operator Relationship Specialty Start Date End Date Jordan Grigsby PA [address] [place] [phone] PCP - General 09/21/21
--- OUTSIDE RECORDS SUMMARY | 2024-11-01 13:25 | XMS_ITS | Encounter Summary ---
Author Organization [facility] Address [address] [place] [address] Care Team Providers Care Life Manager Name Role Phone StefanyYun Ela ROSADO Primary Care Provider Jordan Grigsby Primary Care Provider [phone] Encounter Details Date Type Department Care Team (Late st Contact Info) Description 03/25/2021 Lab Requisition [facility] [address] [place] [address] Tamela Espinosa, [address] [place] [address] Social History Tobacco Use Types Packs/Day Years Used Date Smoking Tobacco: Every Day Cigarettes Alcohol Use Standard Drinks/Week Comments Yes 0 (1 standard drink = 0.6 oz pur e alcohol) Sex and Gender Information Value Date Recorded Sex Assigned at Not on file Gender Identity Not on file Sexual Orientation Not on file documented as of this encounter Plan of Treatment Not on file documented as of this encounter Procedures Procedure Name Priority Date/Time Associated Diagnosis Comments COMPREHENSIVE METABOLIC PANEL STAT 03/25/2021 5:00 AM CDT documented in this encounter Results * (ABNORMAL) COMPREHENSIVE METABOLIC PANEL (03/25/2021 5:00 AM CDT) Glucose 108(H) 70 - 105 mg/dL 03/25/2021 12:42 PM [facility] Sodium 135(L) 136 - 145 mmol/L 03/25/2021 12:42 PM [facility] Potassium 4.1 3.5 - 5.1 mmol/L 03/25/2021 12:42 PM [facility] Chloride 104 98 - 107 mmol/L 03/25/2021 12:42 PM [facility] CO2 19(L) 23 - 31 mmol/L 03/25/2021 12:42 PM [facility] Calcium 9.5 8.4 - 10.4 mg/dL 03/25/2021 12:42 PM [facility] Anion Gap 12 8 - 18 mmol/L 03/25/2021 12:42 PM [facility] BUN 7(L) 8.9 - 20.6 mg/dL 03/25/2021 12:42 PM [facility] Creatinine 0.63(L) 0.72 - 1.25 mg/dL 03/25/2021 12:42 PM [facility] Alkaline Phosphatase 247(H) 40 - 150 U/L 03/25/2021 12:42 PM [facility] ALT 16 0 - 61 U/L 03/25/2021 12:42 PM [facility] AST 25 5 - 34 U/L 03/25/2021 12:42 PM [facility] Protein Total 7.6 6.4 - 8.3 gm/dL 03/25/2021 12:42 PM [facility] Albumin 3.4(L) 3.5 - 5.2 gm/dL 03/25/2021 12:42 PM [facility] Bilirubin Total 0.5 0.2 - 1.2 mg/dL 03/25/2021 12:42 PM [facility] eGFR by MDRD >60 >60 mL/min/1.7 3m2 03/25/2021 12:42 PM [facility] eGFR by MDRD >60 >60 mL/min/1.7 3m2 03/25/2021 12:42 PM [facility] Blood BLOOD SPECIMEN / Unknown Venipuncture / Unknown 03/25/2021 5:00 AM CDT 03/25/2021 11:55 AM CDT Tamela Espinosa DO LAB - CHEMISTRY ANIRUDH LUJAN [facility] [address] [place] [address] documented in this encounter Visit Diagnoses Not on filedocumented in this encounter Care Teams Life Manager Relationship Specialty Start Date End Date Yun Mccall, TREE CHIPPER-CAREER CONSULTANT [address] [facility] [address] [place] [address] PCP - General 11/24/17 09/20/21 Jordan Grigsby PA [address] [place] [address] [address] [place] [address] PCP - General 09/21/21 documented as of this encounter
--- OUTSIDE RECORDS SUMMARY | 2024-11-01 13:25 | XMS_ITS | Clinical Summary ---
Author Organization [facility] Address [address] [facility], [place] [address] Phone Care Team Providers Care Child Care Cook Name Role Phone Hans Troo MD Primary Care Provider Allergies No known active allergies Medications * This document contains information received from the source organization and may not represent a complete record from that organization. amitriptyline (ELAVIL) 25 MG Tablet Take 25 mg by mouth 2 times daily. 8 Active QUEtiapine Fumarate (SEROquel) 50 MG Tablet Take 50 mg by mouth 2 times daily. Active tiZANidine (ZANAFLEX) 4 MG Tablet Take 4 mg by mouth every 8 hours as needed. 5 Active NIFEdipine CR (PROCARDIA-XL) 30 MG TABLET SR 24 HR Take 30 mg by mouth daily. Active hydrOXYzine (ATARAX) 25 MG Tablet Take 25 mg by mouth 2 times daily. 4 Active gabapentin (NEURONTIN) 800 MG Tablet Take 800 mg by mouth 3 times daily. Active rosuvastatin (CRESTOR) 20 MG Tablet Take 20 mg by mouth nightly. Active cloNIDine (CATAPRES) 0.1 MG Tablet Take 0.1 mg by mouth nightly. Active lidocaine (LIDODERM) 5 % Patch 1 Patch by Transdermal route every 12 hours. 5 Active melatonin 3 MG Tablet Take 5 mg by mouth nightly. Active nicotine (NICODERM CQ) 7 MG/24HR PATCH 24 HR 1 Patch by Transdermal route every 24 hours. Active folic acid (FOLVITE) 1 MG Tablet Take 1 Tablet by mouth daily. 30 Tablet 5 Active Multivitamin-Min erals (multiple vitami/antioxida nts) Tablet Take 1 Tablet by mouth daily. 30 Tablet 5 Active ondansetron (ZOFRAN-ODT) 4 MG TABLET DISPERSIBLE Take 1 Tablet by mouth every 6 hours as needed for Nausea - 1st line (for nausea or vomiting). 10 Tablet 5 Active potassium chloride SA (KLORCON M) 20 MEQ Tablet Controlled Release Take 1 Tablet by mouth 2 times daily (with meals). 90 Tablet 5 Active senna 8.6 MG Tablet Take 1 Tablet by mouth daily. 30 Tablet 5 Active traZODone (DESYREL) 50 MG Tablet Take 1 Tablet by mouth nightly as needed for Sleep. 90 Tablet 5 Active thiamine (VITAMIN B1) 100 MG Tablet Take 1 Tablet by mouth daily. 30 Tablet 5 Active Active Problems Problem Noted Date Diagnosed Date Chronic alcoholism 08/29/2024 Alcohol withdrawal delirium 08/29/2024 Hypertension 08/29/2024 Anxiety and depression 08/29/2024 Tobacco dependence 08/29/2024 Encounters * This document contains information received from the source organization and may not represent a complete record from that organization. Date Type Department Care Team Description 08/29/2024 Travel from Last 3 Months Social History Tobacco Use Types Packs/Day Years Used Date Smoking Tobacco: Every Day Cigarettes 0.5 40.2 Started: 1984 Smokeless Tobacco: Never Tobacco Cessation:Ready to Q uit: Yes; Counseling Given: Not Answered Alcohol Use Standard Drinks/Week Comments Yes 35 (1 standard drink = 0.6 oz pu re alcohol) [facility] Utilities Answer Date Recorded In the past 12 months has [employer], gas, oil, or water [employer] threatened to shut off services in your home? Patient declined 08/29/2024 Social Connection and Isolation Panel [NHANES] A nswer Date Recorded In a typical week, how many times do you talk on the phone with family, friends, or neighbors? Patient declined 08/29/2024 How often do you get togethe r with friends or relatives? Patient declined 08/29/2024 How often do you attend sikhism or baptism serv ices? Patient declined 08/29/2024 Do you belong to any clubs o r organizations such as sikhism groups, unions, fraternal or athletic groups, or school groups? Patient declined 08/29/2024 How often do you attend meet ings of the clubs or organizations you belong to? Patient declined 08/29/2024 Are you , , di vorced, , never , or living with a partner? Patient declined 08/29/2024 AUDIT-C Answer Date Recorded Q1: How often do you have a drink containing alc ohol? Patient declined 08/29/2024 Q2: How many drinks containi ng alcohol do you have on a typical day when you are drinking? Patient declined 08/29/2024 Q3: How often do you have si x or more drinks on one occasion? Patient declined 08/29/2024 Overall Financial Resource Strain (CARDIA) Answe r Date Recorded How hard is it for you to pa y for the very basics like food, housing, medical care, and heating? Patient declined 08/29/2024 [facility] Occupat ional [facility] - Occupational Stress Questionnaire Answer Date Recorded Do you feel stress - tense, restless, nervous, or anxious, or unable to sleep at night because your mind is troubled all the time - these days? Patient declined 08/29/2024 Exercise Vital Sign Answer Date Recorde d On average, how many days pe r week do you engage in moderate to strenuous exercise (like a brisk walk)? Patient declined On average, how many minutes do you engage in exercise at this level? Patient declined 08/29/2024 Hunger Vital Sign Answer Date Recorded Within the past 12 months, y ou worried that your food would run out before you got the money to buy more. Patient declined Within the past 12 months, t he food you bought just didn't last and you didn't have money to get more. Patient declined PRAPARE - Transportation Answer Date Re corded In the past 12 months, has l ack of transportation kept you from medical appointments or from getting medications? Patient declined 08/29/2024 In the past 12 months, has l ack of transportation kept you from meetings, work, or from getting things needed for daily living? Patient declined 08/29/2024 Housing Stability Vital Sign Answer Luis Angel e Recorded In the last 12 months, was t here a time when you were not able to pay the mortgage or rent on time? Patient declined 08/29/19 25 In the past 12 months, how m any times have you moved where you were living? 1 08/29/2024 At any time in the past 12 m ont, were you homeless or living in a senior care (including now)? Patient declined 08/29/2024 Sexually Active Control Partners Comments Yes None Male Sex and Gender Information Value Date Recorded Sex Assigned at Not on file Legal Sex Male 7:33 PM CDT Gender Identity Not on file Sexual Orientation Not on file Last Filed Vital Signs Vital Sign Reading Time Taken Comments Blood Pressure 132/75 09/01/2024 7:55 AM ROLL GRINDER OPERATOR Pulse 79 09/01/2024 7:55 AM ROLL GRINDER OPERATOR Temperature 36.7 C (98 F) 08/31/2024 11:23 PM ROLL GRINDER OPERATOR Respiratory Rate 18 08/31/2024 11:23 PM ROLL GRINDER OPERATOR Oxygen Saturation 95% 08/31/2024 11:23 PM ROLL GRINDER OPERATOR Inhaled Oxygen Concentration - - Weight 84.8 kg (187 lb) 08/29/2024 12:17 PM ROLL GRINDER OPERATOR Height 182.9 cm (6') 08/29/2024 12:17 PM ROLL GRINDER OPERATOR Body Mass Index 25.36 08/29/2024 12:17 PM ROLL GRINDER OPERATOR Plan of Treatment Health Maintenance Due Date Last Done Comments Hepatitis C Virus (HCV) Screening 1974 Hepatitis B Immunization (1 of 3 - 19+ 3-dose series) 1993 Colonoscopy 2019 Colorectal Cancer Screening 2019 Cologuard 2024 Immunochemical Fecal Occult Blood 2024 Zoster Immunization (1 of 2) 2024 Influenza Immunization (#1) 2024 SARS-COV-2 Immunization (2023- season) 2024 01/01/2021, 11/30/2020 Lung Cancer Screening 04/29/2025 04/29/2024 , 01/15/2015 Respiratory Syncytial Virus (RSV) Immunization (Adult) (1 - 1-dose 75+ series) 2049 DTaP/Tdap/Td Immunization Discontinued 2012, 12/14/2011 TdaP Immunization Completed 12/22/2012, 12/14/2011 Pneumococcal Immunization (5 0+ years) Completed 06/28/2024, 12/09/2021 Pneumococcal Immunization Combined Discontinued 06/28/2024, 12/09/2021 Meningococcal Immunization (ACWY) Aged Out No longer eligible based on patient's age to complete this topic Rotavirus Immunization Aged Out No lo nger eligible based on patient's age to complete this topic Procedures Procedure Name Priority Date/Time Associated Diagnosis Comments LAVENDER TOP TUBE Routine 09/01/2024 5:2 3 AM ROLL GRINDER OPERATOR EXTRA TUBES Routine 09/01/2024 5:23 AM ROLL GRINDER OPERATOR BASIC METABOLIC PANEL W/ CALCIUM TOTAL Routine 09/01/2024 5:23 AM ROLL GRINDER OPERATOR URINE DRUG SCREEN Routine 08/29/2024 6:2 0 PM ROLL GRINDER OPERATOR GOLD TOP TUBE Routine 08/29/2024 1:20 PM ROLL GRINDER OPERATOR CBC WITH AUTO DIFFERENTIAL Routine 08/29/2024 1:20 PM ROLL GRINDER OPERATOR EXTRA TUBES Routine 08/29/2024 1:20 PM ROLL GRINDER OPERATOR MAGNESIUM (MG) Routine 08/29/2024 1:20 PM ROLL GRINDER OPERATOR PHOSPHORUS (PO4) Routine 08/29/2024 1:20 PM ROLL GRINDER OPERATOR LIPASE Routine 08/29/2024 1:20 PM ROLL GRINDER OPERATOR ETHYL ALCOHOL (ETHANOL) Routine 08/29/2024 1:20 PM ROLL GRINDER OPERATOR PROTIME (PT) (PROTHROMBIN TIME) Routine 08/29/2024 1:20 PM ROLL GRINDER OPERATOR CMP (COMPREHENSIVE METABOLIC PANEL) Routine 08/29/2024 1:20 PM ROLL GRINDER OPERATOR COMPLETE BLOOD COUNT (CBC) WITH DIFF Routine 08/29/2024 1:20 PM ROLL GRINDER OPERATOR from Last 3 Months Results * Lavender Top Tube (09/01/2024 5:23 AM ROLL GRINDER OPERATOR) Blood No Phlebotomy Charged / Unknown 09/01/2024 5:23 AM ROLL GRINDER OPERATOR 09/01/2024 5:27 AM ROLL GRINDER OPERATOR us Mike Rivera MD HEMATOLOGY ORDERABLES Fi nal Result [facility] [address] [place] [address] * (ABNORMAL) Basic Metabolic Panel w/ Calcium Total (09/01/2024 5:23 AM ROLL GRINDER OPERATOR) SODIUM 136 136 - 145 mmol/L 09/01/2024 5:[address] [facility] POTASSIUM 4.1 3.5 - 5.1 mmol/L 09/01/2024 5:[address] [facility] CHLORIDE 104 98 - 107 mmol/L 09/01/2024 5:[address] [facility] CO2, VENOUS 20(L) 22 - 30 mmol/L 09/01/2024 5:[address] [facility] ANION GAP 16.1 <18.0 mmol/L 09/01/2024 5:[address] [facility] GLUCOSE 112(H) 70 - 99 mg/dL 09/01/2024 5:[address] [facility] BUN 15 8 - 26 mg/dL 09/01/2024 5:[address] [facility] CREATININE, BLOOD 0.72 0.70 - 1.30 mg/dL 09/01/2024 5:[address] [facility] BUN/CREATININE RATIO 21(H) 12 - 20 ratio 09/01/2024 5:[address] [facility] CALCIUM 9.3 8.7 - 10.5 mg/dL 09/01/2024 5:[address] [facility] GFR, ESTIMATED >60 >=60 09/01/2024 5:[address] [facility] Comment: Creatinine Clearance is the preferred criteria for selecting drug dose adjustments in renally impaired patients. The GFR is provided as additional pertinent clinical information. GFR is reported in mL/min/1.73 sq m. Calculation based on the Chronic Kidney Disease Epidemiology Collaboration (CKD- EPI) equation refit without adjustment for race. GFR, EST. >60 >=60 025 5:53 AM ROLL GRINDER OPERATOR [facility] GFR, EST. NONAFRICAN >60 >=60 09/01/2024 5:53 AM ROLL GRINDER OPERATOR [facility] Blood Venipuncture / Unknown 09/01/2024 5:23 AM ROLL GRINDER OPERATOR 09/01/2024 5:23 AM ROLL GRINDER OPERATOR Mike Rivera MD CHEMISTRY ORDERABLES Fin al Result [facility] [address] [place] [address] * (ABNORMAL) Urine Drug Screen (08/29/2024 6:20 PM ROLL GRINDER OPERATOR) UR AMPHETAMINE NON DETECTED NON DETECTED 08/29/2024 6:41 PM ROLL GRINDER OPERATOR [facility] Comment: FOR MEDICAL USE ONLY. CUTOFF CONCENTRATION FOR DETECTED RESULT: AMPHETAMINE: 500 NG/ML UR BENZODIAZEPINES DETECTED(A) NON DETECTED 08/29/2024 6:41 PM ROLL GRINDER OPERATOR [facility] Comment: FOR MEDICAL USE ONLY. CUTOFF CONCENTRATION FOR DETECTED RESULT: BENZODIAZAPINE: 200 NG/ML UR COCAINE METABOLITE NON DETECTED NON DETECTED 08/29/2024 6:41 PM ROLL GRINDER OPERATOR [facility] Comment: FOR MEDICAL USE ONLY. CUTOFF CONCENTRATION FOR DETECTED RESULT: COCAINE: 150 NG/ML UR OPIATES NON DETECTED NON DETECTED 08/29/2024 6:41 PM ROLL GRINDER OPERATOR [facility] Comment: FOR MEDICAL USE ONLY. CUTOFF CONCENTRATION FOR DETECTED RESULT: OPIATES: 300 NG/ML UR PHENCYCLIDINE NON DETECTED NON DETECTED 08/29/2024 6:41 PM ROLL GRINDER OPERATOR [facility] Comment: FOR MEDICAL USE ONLY. CUTOFF CONCENTRATION FOR DETECTED RESULT: PCP: 25 NG/ML UR CANNABINOID NON DETECTED NON DETECTED 08/29/2024 6:41 PM ROLL GRINDER OPERATOR [facility] Comment: FOR MEDICAL USE ONLY. CUTOFF CONCENTRATION FOR DETECTED RESULT: THC (MARIJUANA): 50 NG/ML UR BARBITURATE NON DETECTED NON DETECTED 08/29/2024 6:41 PM ROLL GRINDER OPERATOR [facility] Comment: FOR MEDICAL USE ONLY. CUTOFF CONCENTRATION FOR DETECTED RESULT: BARBITUATES: 200 NG/ML UR FENTANYL NON DETECTED NON DETECTED 08/29/2024 6:41 PM ROLL GRINDER OPERATOR [facility] Comment: FOR MEDICAL USE ONLY. CUTOFF CONCENTRATION FOR DETECTED RESULT: FENTANYL: 1.0 NG/ML Urine Non-Phlebotomy Collection / Unknown 08/29/2024 6:20 PM ROLL GRINDER OPERATOR 08/29/2024 6:24 PM ROLL GRINDER OPERATOR Mike Rivera MD URINE ORDERABLES Final R esult Performing Organization Address [facility] Co de Phone Number [facility] [address] [place] [address] * Gold Top Tube (08/29/2024 1:20 PM ROLL GRINDER OPERATOR) Blood No Phlebotomy Charged / Unknown 08/29/2024 1:20 PM ROLL GRINDER OPERATOR 08/29/2024 1:51 PM ROLL GRINDER OPERATOR Mike Rivera MD CHEMISTRY ORDERABLES Fin al Result Performing Organization Address [facility] Co de Phone Number [facility] [address] [place] [address] * (ABNORMAL) CBC with Auto Differential (08/29/2024 1:20 PM ROLL GRINDER OPERATOR) WBC 8.28 4.00 - 12.00 10(3)/mcL 08/29/2024 1:25 PM ROLL GRINDER OPERATOR [facility] RBC 4.05(L) 4.40 - 5.80 10(6)/mcL 08/29/2024 1:25 PM ROLL GRINDER OPERATOR [facility] HEMOGLOBIN (HGB) 12.5(L) 13.0 - 16.5 g/dL 08/29/2024 1:[address] [facility] HEMATOCRIT (HCT) 37.8(L) 38.0 - 50.0 % 08/29/2024 1:[address] [facility] MCV 93.3 82.0 - 96.0 fL 08/29/2024 1:[address] [facility] MCH 30.9 26.0 - 32.0 pg 08/29/2024 1:[address] [facility] MCHC 33.1 31.0 - 36.0 g/dL 08/29/2024 1:[address] [facility] PLATELET COUNT 264 140 - 440 10(3)/mcL 08/29/2024 1:[address] [facility] RDW 12.5 11.8 - 15.5 % 08/29/2024 1:[address] [facility] MPV 9.5 8.0 - 12.6 fL 08/29/2024 1:[address] [facility] NEUTROPHILS 38.4(L) 40.0 - 68.0 % 08/29/2024 1:[address] [facility] LYMPHOCYTES 45.7 19.0 - 49.0 % 08/29/2024 1:[address] [facility] MONOCYTES 10.1 3.0 - 13.0 % 08/29/2024 1:[address] [facility] EOSINOPHILS 4.0 0.0 - 8.0 % 08/29/2024 1:[address] [facility] BASOPHILS 1.8(H) 0.0 - 1.0 % 08/29/2024 1:[address] [facility] ABSOLUTE NEUTROPHILS 3.18 1.40 - 5.30 10(3)/mcL 08/29/2024 1:[address] [facility] ABSOLUTE LYMPHOCYTES 3.78(H) 0.90 - 3.30 10(3)/mcL 08/29/2024 1:[address] [facility] ABSOLUTE MONOCYTES 0.84 0.10 - 0.90 10(3)/mcL 08/29/2024 1:25 PM ROLL GRINDER OPERATOR [facility] ABSOLUTE EOSINOPHIL 0.33 0.00 - 0.50 10(3)/mcL 08/29/2024 1:25 PM ROLL GRINDER OPERATOR [facility] ABSOLUTE BASOPHILS 0.15(H) 0.00 - 0.10 10(3)/mcL 08/29/2024 1:25 PM ROLL GRINDER OPERATOR [facility] NRBC PER 100 WBC 0 08/29/19 1:25 PM ROLL GRINDER OPERATOR [facility] Blood Venipuncture / Unknown 08/29/2024 1:20 PM ROLL GRINDER OPERATOR 08/29/2024 1:23 PM ROLL GRINDER OPERATOR Result [facility] Mike Rivera MD HEMATOLOGY ORDERABLES Fi nal Result Performing Organization Address [facility] Co de Phone Number [facility] [address] [place] [address] * PROTIME (PT) (PROTHROMBIN TIME) (08/29/2024 1:20 PM ROLL GRINDER OPERATOR) PROTIME-PATIENT 14.7 11.6 - 14.8 sec 08/29/2024 1:41 PM ROLL GRINDER OPERATOR [facility] INR 1.2 0.9 - 1.2 08/29/2024 1:41 PM ROLL GRINDER OPERATOR [facility] Comment: Therapeutic Ranges INR = 2.0-3.0: Venous thromb, atrial fib, pul embolism, tissue heart valve, ami. INR = 2.5-3.5: Mechanical heart valve Critical value for INR is >/= 4.5 Blood Venipuncture / Unknown 08/29/2024 1:20 PM ROLL GRINDER OPERATOR 08/29/2024 1:23 PM ROLL GRINDER OPERATOR Mike Rivera MD HEMATOLOGY ORDERABLES Fi nal Result [facility] [address] [place] [address] * PHOSPHORUS (PO4) (08/29/2024 1:20 PM ROLL GRINDER OPERATOR) PHOSPHORUS 4.0 2.5 - 4.5 mg/dL 08/29/2024 1:44 PM ROLL GRINDER OPERATOR [facility] Blood Venipuncture / Unknown 08/29/2024 1:20 PM ROLL GRINDER OPERATOR 08/29/2024 1:23 PM ROLL GRINDER OPERATOR Mike Rivera MD CHEMISTRY ORDERABLES Fin al Result Performing Organization Address [facility]/ZIP Co de Phone Number [facility] [address] [place] [address] * MAGNESIUM (MG) (08/29/2024 1:20 PM ROLL GRINDER OPERATOR) MAGNESIUM 1.8 1.6 - 2.6 mg/dL 08/29/2024 1:44 PM ROLL GRINDER OPERATOR [facility] Blood Venipuncture / Unknown 08/29/2024 1:20 PM ROLL GRINDER OPERATOR 08/29/2024 1:23 PM ROLL GRINDER OPERATOR Mike Rivera MD CHEMISTRY ORDERABLES Fin al Result Performing Organization Address [facility] Co de Phone Number [facility] [address] [place] [address] * Lipase (08/29/2024 1:20 PM ROLL GRINDER OPERATOR) LIPASE 43 8 - 78 U/L 08/29/2024 1:44 PM ROLL GRINDER OPERATOR [facility] Blood Venipuncture / Unknown 08/29/2024 1:20 PM ROLL GRINDER OPERATOR 08/29/2024 1:23 PM ROLL GRINDER OPERATOR Mike Rivera MD CHEMISTRY ORDERABLES Fin al Result Performing Organization Address [facility] Co de Phone Number [facility] [address] [place] [address] * (ABNORMAL) Ethyl Alcohol (Ethanol) (08/29/2024 1:20 PM ROLL GRINDER OPERATOR) ETHANOL 49(H) <10 mg/dL 08/29/2024 1:4 4 PM ROLL GRINDER OPERATOR [facility] Blood Venipuncture / Unknown 08/29/2024 1:20 PM ROLL GRINDER OPERATOR 08/29/2024 1:23 PM ROLL GRINDER OPERATOR Mike Rivera MD CHEMISTRY ORDERABLES Fin al Result [facility] [address] [place] [address] * (ABNORMAL) CMP (Comprehensive Metabolic Panel) (08/29/2024 1:20 PM ROLL GRINDER OPERATOR) SODIUM 140 136 - 145 mmol/L 08/29/2024 1:[address] [facility] POTASSIUM 3.6 3.5 - 5.1 mmol/L 08/29/2024 1:[address] [facility] CHLORIDE 107 98 - 107 mmol/L 08/29/2024 1:[address] [facility] CO2, VENOUS 21(L) 22 - 30 mmol/L 08/29/2024 1:44 PM ROLL GRINDER OPERATOR [facility] ANION GAP 15.6 <18.0 mmol/L 08/29/2024 1:[address] [facility] GLUCOSE 102(H) 70 - 99 mg/dL 08/29/2024 1:[address] [facility] BUN 14 8 - 26 mg/dL 08/29/2024 1:[address] [facility] CREATININE, BLOOD 0.90 0.70 - 1.30 mg/dL 08/29/2024 1:[address] [facility] BUN/CREATININE RATIO 16 12 - 20 ratio 08/29/2024 1:[address] [facility] TOTAL PROTEIN 6.8 6.0 - 8.0 g/dL 08/29/2024 1:[address] [facility] ALBUMIN 3.8 3.5 - 5.0 g/dL 08/29/2024 1:44 PM ROLL GRINDER OPERATOR [facility] A/G RATIO 1.3 1.0 - 2.2 08/29/2024 1:44 PM ROLL GRINDER OPERATOR [facility] CALCIUM 8.7 8.7 - 10.5 mg/dL 08/29/2024 1:44 PM ROLL GRINDER OPERATOR [facility] T BILI 0.2 0.2 - 1.2 mg/dL 08/29/2024 1:44 PM ROLL GRINDER OPERATOR [facility] SGOT (AST) 34 6 - 42 U/L 08/29/2024 1:44 PM ROLL GRINDER OPERATOR [facility] SGPT (ALT) 28 6 - 55 U/L 08/29/2024 1:44 PM ROLL GRINDER OPERATOR [facility] ALKALINE PHOSPHATASE 54 40 - 150 U/L 08/29/2024 1:44 PM ROLL GRINDER OPERATOR [facility] GFR, ESTIMATED >60 >=60 08/29/2024 1:44 PM ROLL GRINDER OPERATOR [facility] Comment: Creatinine Clearance is the preferred criteria for selecting drug dose adjustments in renally impaired patients. The GFR is provided as additional pertinent clinical information. GFR is reported in mL/min/1.73 sq m. Calculation based on the Chronic Kidney Disease Epidemiology Collaboration (CKD- EPI) equation refit without adjustment for race. GFR, EST. >60 >=60 025 1:44 PM ROLL GRINDER OPERATOR [facility] GFR, EST. NONAFRICAN >60 >=60 08/29/2024 1:44 PM ROLL GRINDER OPERATOR [facility] Blood Venipuncture / Unknown 08/29/2024 1:20 PM ROLL GRINDER OPERATOR 08/29/2024 1:23 PM ROLL GRINDER OPERATOR Mike Rivera MD CHEMISTRY ORDERABLES Fin al Result [facility] [address] [place] [address] from Last 3 Months Insurance MEDICAID [place] Advance Directives * Full Code (Latest Code Status on File) Date Activated Date Inactivated Comments 08/29/2024 4:11 PM CPR-Full Treat ment: FULL ARREST: Attempt Resuscitation/CPR wit intubation and mechanical ventilation. PRE-ARREST: Use entire range of life support measures to stabilize the patient. Care Teams Child Care Cook Relationship Specialty Start Date End Date Hans Toro MD [address] [place] [id number] PCP - General Internal Medicine 08/29/24
--- OUTSIDE RECORDS SUMMARY | 2024-11-01 13:25 | XMS_ITS | Encounter Summary ---
Author Organization [facility] Address [address] [facility] [place] [address] Care Team Providers Care Seaming Inspector Name Role Phone Yun Mccall Ela ROSADO Primary Care Provider Jordan Grigsby Primary Care Provider [phone] Encounter Details Date Type Department Care Team (Late st Contact Info) Description 03/11/2021 Lab Requisition [facility] [address] [place] [address] [place] [address] [place] [address] Social History Tobacco Use Types Packs/Day Years [...] Procedure Name Priority Date/Time Associated Diagnosis Comments URINALYSIS REFLEX TO MICROSCOPIC NO CULTURE STAT 03/11/2021 5:23 AM CDT COMPREHENSIVE METABOLIC PANEL STAT 03/11/2021 5:23 AM CDT documented in this encounter Results * (ABNORMAL) COMPREHENSIVE METABOLIC PANEL (03/11/2021 5:23 AM CDT) Glucose 114(H) 70 - 105 mg/dL 03/11/2021 10:50 AM [facility] Sodium 137 136 - 145 mmol/L 03/11/2021 10:50 AM [facility] Potassium 4.7 3.5 - 5.1 mmol/L 03/11/2021 10:50 AM [facility] Chloride 103 98 - 107 mmol/L 03/11/2021 10:50 AM [facility] CO2 19(L) 23 - 31 mmol/L 03/11/2021 10:50 AM [facility] Calcium 9.9 8.4 - 10.4 mg/dL 03/11/2021 10:50 AM [facility] Anion Gap 15 8 - 18 mmol/L 03/11/2021 10:50 AM [facility] BUN 13 8.9 - 20.6 mg/dL 03/11/2021 10:50 AM [facility] Creatinine 0.73 0.72 - 1.25 mg/dL 03/11/2021 10:50 AM [facility] Alkaline Phosphatase 326(H) 40 - 150 U/L 03/11/2021 10:50 AM [facility] ALT 25 0 - 61 U/L 03/11/2021 10:50 AM [facility] AST 50(H) 5 - 34 U/L 03/11/2021 10:50 AM [facility] Protein Total 9.0(H) 6.4 - 8.3 gm/dL 03/11/2021 10:50 AM [facility] Albumin 3.6 3.5 - 5.2 gm/dL 03/11/2021 10:50 AM [facility] Bilirubin Total 1.0 0.2 - 1.2 mg/dL 03/11/2021 10:50 AM [facility] eGFR by MDRD >60 >60 mL/min/1.7 3m2 03/11/2021 10:50 AM [facility] eGFR by MDRD >60 >60 mL/min/1.7 3m2 03/11/2021 10:50 AM [facility] Blood BLOOD SPECIMEN / Unknown Venipuncture / Unknown 03/11/2021 5:23 AM CDT 03/11/2021 10:07 AM CDT Charles Munoz MD LAB - CHEMISTRY ANIRUDH LUJAN [facility] Organization Address City/State/ZIP Co de Phone Number [facility] [address] [place] [address] * (ABNORMAL) URINALYSIS REFLEX TO MICROSCOPIC NO CULTURE (03/11/2021 5:23 AM CDT) Color UA Yellow Straw, Yellow 03/11/2021 10:35 AM CDT [facility] Clarity UA Clear Clear 03/11/2021 10:35 AM CDT [facility] Glucose UA Negative Negative 03/11/2021 10:35 AM CDT [facility] Bilirubin UA Negative Negative 03/11/2021 10:35 AM CDT [facility] Ketone UA Negative Negative 03/11/2021 10:35 AM CDT [facility] Specific Caraway UA 1.018 1.005 - 1.030 03/11/2021 10:35 AM CDT [facility] Blood UA Negative Negative 03/11/2021 10:35 AM CDT [facility] pH UA 6.0 5.0 - 8.0 pH 03/11/2021 10:35 AM CDT [facility] Protein UA Negative Negative 03/11/2021 10:35 AM CDT [facility] Urobilinogen UA 2.0(A) Negative mg/dL 03/11/2021 10:35 AM CDT [facility] Nitrite UA Negative Negative 03/11/2021 10:35 AM CDT [facility] Leukocyte UA Negative Negative 03/11/2021 10:35 AM T [facility] Urine Microscopy Urine microscopy not indicated 03/11/2021 10:35 AM T [facility] Urine URINE SPECIMEN OBTAINED BY CLEAN CATCH PROCEDURE / Unknown Collection / Unknown 03/11/2021 5:23 AM CDT 03/11/2021 10:07 AM CDT Narrative [facility] - 03/11/2021 10:35 AM CDT Ascorbic Acid can cause false negative urine strip tests for blood, glucose, nitrite, and bilirubin. Charles Munoz MD LAB - URINALYSIS ORD ERABLES [facility] [address] [place] [address] documented in this encounter Visit Diagnoses Not on filedocumented in this encounter Care Teams Seaming Inspector Relationship Specialty Start Date End Date Yun Mccall, STAFF FIELD ENGINEER-MOLDER FITTING [address] [facility] [address] [place] [address] PCP - General 11/24/17 09/20/21 Jordan Grigsby PA [address] [place] [address] 104 [place] [address] PCP - General 09/21/21 documented as of this encounter
--- OUTSIDE RECORDS SUMMARY | 2024-11-01 13:25 | XMS_ITS | Encounter Summary ---
Author Organization [facility] Address [address] [place] [address] Care Team Providers Care Director Workforce Management Name Role Phone StefanyYun Ela ROSADO Primary Care Provider Jordan Grigsby Primary Care Provider [phone] Encounter Details Date Type Department Care Team (Late st Contact Info) Description 03/04/2021 Lab Requisition [facility] [address] [place] [address] Tamela Espinosa, [address] [place] [address] Social History Tobacco Use Types Packs/Day Years [...] Associated Diagnosis Comments COMPREHENSIVE METABOLIC PANEL STAT 03/04/2021 4:40 AM CDT documented in this encounter Results * (ABNORMAL) COMPREHENSIVE METABOLIC PANEL (03/04/2021 4:40 AM CDT) Glucose 145(H) 70 - 105 mg/dL 03/04[facility]2021 11:[facility] Sodium 136 136 - 145 mmol/L 03/04/2021 11:58 [facility] Potassium 4.4 3.5 - 5.1 mmol/L 03/04/2021 11:58 AM [facility] Chloride 102 98 - 107 mmol/L 03/04/2021 11:58 AM [facility] CO2 20(L) 23 - 31 mmol/L 03/04/2021 11:58 AM [facility] Calcium 9.2 8.4 - 10.4 mg/dL 03/04/2021 11:58 AM [facility] Anion Gap 14 8 - 18 mmol/L 03/04/2021 11:58 AM [facility] BUN 13 8.9 - 20.6 mg/dL 03/04/2021 11:58 AM [facility] Creatinine 0.66(L) 0.72 - 1.25 mg/dL 03/04/2021 11:58 AM [facility] Alkaline Phosphatase 349(H) 40 - 150 U/L 03/04/2021 11:58 AM [facility] ALT 33 0 - 61 U/L 03/04/2021 11:58 AM [facility] AST 63(H) 5 - 34 U/L 03/04/2021 11:58 AM [facility] Protein Total 8.3 6.4 - 8.3 gm/dL 03/04/2021 11:58 AM [facility] Albumin 3.4(L) 3.5 - 5.2 gm/dL 03/04/2021 11:58 AM [facility] Bilirubin Total 0.9 0.2 - 1.2 mg/dL 03/04/2021 11:58 AM [facility] eGFR by MDRD >60 >60 mL/min/1.7 3m2 03/04/2021 11:58 AM [facility] eGFR by MDRD >60 >60 mL/min/1.7 3m2 03/04/2021 11:58 AM [facility] Blood BLOOD SPECIMEN / Unknown Venipuncture / Unknown 03/04/2021 4:40 AM CDT 03/04/2021 11:29 AM CDT Tamela Espinosa DO LAB - CHEMISTRY ANIRUDH LUJAN [facility] [address] [place], [place] [id number] documented in this encounter Visit Diagnoses Not on filedocumented in this encounter Care Teams Director Workforce Management Relationship Specialty Start Date End Date Yun Mccall, COTTON INSPECTOR-CUSTOMER CONTACT REPRESENTATIVE [address] [facility] [address] [place] [phone] PCP - General 11/24/17 09/20/21 Jordan Grigsby PA [address] [place] [address] 104 [place] [address] PCP - General 09/21/21 documented as of this encounter
--- OUTSIDE RECORDS SUMMARY | 2024-11-01 13:25 | XMS_ITS | Encounter Summary ---
Author Organization [facility] Address [address] [facility] [place] [address] Care Team Providers Care Manufacturing Engineering Director Name Role Phone Yun Mccall ALONZO Primary Care Provider Jordan Grigsby Primary Care Provider [phone] Encounter Details Date Type Department Care Team (Late st Contact Info) Description 03/09/2021 Lab Requisition [facility] [address] [place] [address] [place] [address] [place] [address] Social History Tobacco Use Types Packs/Day Years [...] Procedure Name Priority Date/Time Associated Diagnosis Comments DIFFERENTIAL MANUAL Routine 03/09/2021 9 :59 AM CDT CBC W AUTO DIFFERENTIAL STAT 03/09/2021 9:59 AM CDT documented in this encounter Results * (ABNORMAL) DIFFERENTIAL MANUAL (03/09/2021 9:59 AM CDT) WBC Auto 10.5 x10E9/L 03/09/2021 11:57 AM CDT [facility] WBC Corrected 03/09/2021 11:57 AM CDT [facility] nRBC 03/09/2021 11:57 AM CDT [facility] Neutrophil % Manual 60 44 - 73 % 03/09/2021 11:57 AM CDT [facility] Lymphocytes % Manual 18(L) 20 - 43 % 03/09/2021 11:57 AM CDT [facility] Monocytes % Manual 15(H) 5 - 13 % 03/09/2021 11:57 AM CDT [facility] Eosinophils % Manual 7(H) 0 - 6 % 03/09/2021 11:57 AM CDT [facility] Neutrophils Absolute Manual 6.30 2.01 - 7.14 x10E9/L 03/09/2021 11:57 AM CDT [facility] Lymphocytes Absolute Manual 1.89 1.07 - 3.94 x10E9/L 03/09/2021 11:57 AM CDT [facility] Monocytes Absolute Manual 1.58(H) 0.26 - 1.07 x10E9/L 03/09/2021 11:57 AM CDT [facility] Eosinophils Absolute Manual 0.74(H) 0.00 - 0.47 x10E9/L 03/09/2021 11:57 AM [facility] Cells Counted 100 # cells 03/09/2021 11:57 AM T [facility] RBC Morphology Normal 03/09/2021 11:57 AM CDT [facility] WBC Morph Normal 03/09/2021 11:57 AM CDT [facility] Platelet Estimation Normal 03/09/2021 11:57 AM T [facility] Blood BLOOD SPECIMEN / Unknown Venipuncture / Unknown 03/09/2021 9:59 AM CDT 03/09/2021 10:56 AM CDT Charles Munoz MD LAB - HEMATOLOGY ORD ERABLES [facility] [address] [place] [address] * (ABNORMAL) CBC WITH DIFFERENTIAL (03/09/2021 9:59 AM CDT) WBC 10.5 4.4 - 10.7 x10E9/L 03/09/2021 11:05 AM CDT [facility] WBC Corrected 03/09/2021 11:05 AM CDT [facility] RBC 3.77(L) 3.80 - 5.40 x10E12/L 03/09/2021 11:05 AM CDT [facility] Hemoglobin 10.3(L) 12.0 - 17.6 gm/dL 03/09/2021 11:05 AM CDT [facility] Hematocrit 33.4(L) 35.2 - 51.7 % 03/09/2021 11:05 AM CDT [facility] MCV 88.6 80.7 - 98.3 fl 03/09/2021 11:05 AM CDT [facility] MCH 27.3 26.7 - 34.0 pg 03/09/2021 11:05 AM CDT [facility] MCHC 30.8 30.8 - 35.9 gm/dL 03/09/2021 11:05 AM CDT [facility] Platelet Count 314 153 - 416 x10E9/L 03/09/2021 11:05 AM CDT [facility] RDW-CV 17.8(H) 12.1 - 14.9 % 03/09/2021 11:05 AM CDT [facility] MPV 10.1 9.4 - 12.9 fl 03/09/2021 11:05 AM CDT [facility] nRBC Auto 0 /100 WBC 03/09/2021 11:05 AM CDT [facility] Blood BLOOD SPECIMEN / Unknown Venipuncture / Unknown 03/09/2021 9:59 AM CDT 03/09/2021 10:56 AM CDT Charles Munoz MD LAB - HEMATOLOGY ORD ERABLES [facility] [address] [place] [address] documented in this encounter Visit Diagnoses Not on filedocumented in this encounter Care Teams Manufacturing Engineering Director Relationship Specialty Start Date End Date Yun Mccall, OPERATIONS DIRECTOR-READING INTERVENTIONIST [address] [facility] [address] [place] [phone] PCP - General 11/24/17 09/20/21 Jordan Grigsby PA [address] [place] [address] 104 [place] [phone] PCP - General 09/21/21 documented as of this encounter
--- OUTSIDE RECORDS SUMMARY | 2024-11-01 13:25 | XMS_ITS | Encounter Summary ---
Author Organization [facility] Address [address] [facility] [place] [address] Care Team Providers Care Radio Dispatcher Name Role Phone StefanyYun Ela ROSADO Primary Care Provider Jordan Grigsby Primary Care Provider [phone] Encounter Details Date Type Department Care Team (Late st Contact Info) Description 03/18/2021 Lab Requisition [facility] [address] [place] [address] Social History Tobacco Use Types Packs/Day Years [...] Date/Time Associated Diagnosis Comments COMPREHENSIVE METABOLIC PANEL Routine 03/18/2021 9:49 AM CDT documented in this encounter Results * (ABNORMAL) COMPREHENSIVE METABOLIC PANEL (03/18/2021 9:49 AM CDT) Glucose 117(H) 70 - 105 mg/dL 03/18/2021 10:38 AM CDT [facility] Sodium 139 136 - 145 mmol/L 03/18/2021 10:38 AM CDT [facility] Potassium 4.2 3.5 - 5.1 mmol/L 03/18/2021 10:38 AM [facility] Chloride 102 98 - 107 mmol/L 03/18/2021 10:38 AM [facility] CO2 26 23 - 31 mmol/L 03/18/2021 10:38 AM [facility] Calcium 9.6 8.4 - 10.4 mg/dL 03/18/2021 10:38 AM [facility] Anion Gap 11 8 - 18 mmol/L 03/18/2021 10:38 AM [facility] BUN 15 8.9 - 20.6 mg/dL 03/18/2021 10:38 AM [facility] Creatinine 0.67(L) 0.72 - 1.25 mg/dL 03/18/2021 10:38 AM [facility] Alkaline Phosphatase 266(H) 40 - 150 U/L 03/18/2021 10:38 AM [facility] ALT 18 0 - 61 U/L 03/18/2021 10:38 AM [facility] AST 27 5 - 34 U/L 03/18/2021 10:38 AM [facility] Protein Total 7.8 6.4 - 8.3 gm/dL 03/18/2021 10:38 AM [facility] Albumin 3.4(L) 3.5 - 5.2 gm/dL 03/18/2021 10:38 AM [facility] Bilirubin Total 0.8 0.2 - 1.2 mg/dL 03/18/2021 10:38 AM [facility] eGFR by MDRD >60 >60 mL/min/1.7 3m2 03/18/2021 10:38 AM [facility] eGFR by MDRD >60 >60 mL/min/1.7 3m2 03/18/2021 10:38 AM [facility] Blood BLOOD SPECIMEN / Unknown Venipuncture / Unknown 03/18/2021 9:49 AM CDT 03/18/2021 9:49 AM CDT LAB - CHEMISTRY ANIRUDH LUJAN [facility] Organization Address City/State/ZIP Co de Phone Number [facility] [address] [place] [phone] documented in this encounter Visit Diagnoses Not on filedocumented in this encounter Care Teams Radio Dispatcher Relationship Specialty Start Date End Date Yun Mccall APRN-MEDICAL SALES REPRESENTATIVE [address] [facility] [address] [place] [address] PCP - General 11/24/17 09/20/21 Jordan Grigsby PA [address] [place] [address] 104 [place] [address] PCP - General 09/21/21 documented as of this encounter
--- OUTSIDE RECORDS SUMMARY | 2024-11-01 13:25 | XMS_ITS | CONTINUITY OF CARE DOCUMENT ---
Author Name estephania obinnaclarisa Address Unknown Organization [facility] Address [address] [place] [address] Phone [phone] Care Team Providers Care Dental Receptionist Name Role Phone Travon DOHERTY, Maurizio Britt Unavailable [phone] Jordan Grigsby PA-C Unavailable Seb WILKES, Jordan Unavailable PROBLEMS Condition Status Date Provider Notes Tobacco abuse active Ovidio Ahmedzai Hx of seizure active Ovidio Ahmedzai CHF active Ovidio Ahmedzai Hyperlipidemia active Ovidio Ahmedzai Alcohol abuse active Ovidio Ahmedzai Hypertension active Ovidio Ahmedzai Diabetes mellitus, type 2 active Ovidio Ahmed disha Liver cirrhosis active Ovidio Ahmedzai ENCOUNTERS Date Type Provider Location Encounter Diag nosis - In-person encounter Office Visit Arti Cameron MD [facility] OFFICE INSURANCE PROVIDERS Payer name Policy type / Coverage type [place] [employer] [place] [employer] MED[place] Medicaid [id number]
--- OUTSIDE RECORDS SUMMARY | 2024-11-01 13:25 | XMS_ITS | Encounter Summary ---
Author Organization [facility] Address [address] [facility] [place] [address] Care Team Providers Care Equipment Service Lead Name Role Phone StefanyYun Ela ROSADO Primary Care Provider Jordan Grigsby Primary Care Provider [phone] Encounter Details Date Type Department Care Team (Late st Contact Info) Description 02/26/2021 Lab Requisition [facility] [address] [place] [address] Tamela Espinosa, [address] [place] [address] Social History Tobacco Use Types Packs/Day Years [...] Procedure Name Priority Date/Time Associated Diagnosis Comments PTT STAT 02/26/2021 5:18 AM CDT PT-INR STAT 02/26/2021 5:18 AM CDT CBC W AUTO DIFFERENTIAL STAT 02/26/2021 5:18 AM CDT COMPREHENSIVE METABOLIC PANEL STAT 02/26/2021 5:18 AM CDT documented in this encounter Results * (ABNORMAL) COMPREHENSIVE METABOLIC PANEL (02/26/2021 5:18 AM CDT) Glucose 120(H) 70 - 105 mg/dL 02/26/2021 10:32 AM CDT [facility] Sodium 139 136 - 145 mmol/L 02/26/2021 10:32 AM CDT [facility] Potassium 4.6 3.5 - 5.1 mmol/L 02/26/2021 10:32 AM CDT [facility] Chloride 100 98 - 107 mmol/L 02/26/2021 10:32 AM CDT [facility] CO2 22(L) 23 - 31 mmol/L 02/26/2021 10:32 AM CDT [facility] Calcium 9.6 8.4 - 10.4 mg/dL 02/26/2021 10:32 AM CDT [facility] Anion Gap 17 8 - 18 mmol/L 02/26/2021 10:32 AM CDT [facility] BUN 13 8.9 - 20.6 mg/dL 02/26/2021 10:32 AM CDT [facility] Creatinine 0.74 0.72 - 1.25 mg/dL 02/26/2021 10:32 AM CDT [facility] Alkaline Phosphatase 475(H) 40 - 150 U/L 02/26/2021 10:32 AM CDT [facility] ALT 36 0 - 61 U/L 02/26/2021 10:32 AM CDT [facility] AST 88(H) 5 - 34 U/L 02/26/2021 10:32 AM CDT [facility] Protein Total 8.7(H) 6.4 - 8.3 gm/dL 02/26/2021 10:32 AM CDT [facility] Albumin 3.5 3.5 - 5.2 gm/dL 02/26/2021 10:32 AM CDT [facility] Bilirubin Total 1.4(H) 0.2 - 1.2 mg/dL 02/26/2021 10:32 AM CDT [facility] eGFR by MDRD >60 >60 mL/min/1.7 3m2 02/26/2021 10:32 AM CDT [facility] eGFR by MDRD >60 >60 mL/min/1.7 3m2 02/26/2021 10:32 AM CDT [facility] Blood BLOOD SPECIMEN / Unknown Venipuncture / Unknown 02/26/2021 5:18 AM CDT 02/26/2021 9:05 AM CDT Tamela Espinosa DO LAB - CHEMISTRY ORDE RABLES Performing Organization Address City/[facility]/ZIP Co de Phone Number [facility] [address] [place] [phone] * PTT (02/26/2021 5:18 AM CDT) PTT 35.5 23.0 - 38.4 sec 02/26/2021 10:17 AM CDT [facility] Blood BLOOD SPECIMEN / Unknown Venipuncture / Unknown 02/26/2021 5:18 AM CDT 02/26/2021 9:05 AM CDT Narrative [facility] - 02/26/2021 10:17 AM CDT Heparin Therapeutic Range for PTT: 71.0 - 109.0 seconds. Tamela Espinosa DO LAB - COAGULATION OR DERABLES Performing Organization Address [facility] Co de Phone Number [facility] [address] [place] [phone] * (ABNORMAL) PT-INR (02/26/2021 5:18 AM CDT) PT 15.6(H) 12.1 - 14.8 sec 02/26/2021 10:16 AM CDT [facility] INR 1.2(H) 0.9 - 1.1 02/26/2021 10:16 AM CDT [facility] Blood BLOOD SPECIMEN / Unknown Venipuncture / Unknown 02/26/2021 5:18 AM CDT 02/26/2021 9:05 AM CDT Narrative [facility] - 02/26/2021 10:16 AM CDT Conventional Warfarin Anticoagulant Therapy: INR Reference Range: 2.0-3.0 Intensive Warfarin Anticoagulant Therapy: INR Reference Range: 2.5-3.5 Tamela Espinosa DO LAB - COAGULATION OR DERABLES Performing Organization Address City/State/[facility] Co de Phone Number [facility] [address] [place] [address] * (ABNORMAL) CBC WITH DIFFERENTIAL (02/26/2021 5:18 AM CDT) WBC 13.6(H) 4.4 - 10.7 x10E9/L 02/26/2021 10:06 AM CDT [facility] WBC Corrected 02/26/2021 10:06 AM CDT [facility] RBC 3.51(L) 3.80 - 5.40 x10E12/L 02/26/2021 10:06 AM CDT [facility] Hemoglobin 9.9(L) 12.0 - 17.6 gm/dL 02/26/2021 10:06 AM CDT [facility] Hematocrit 31.7(L) 35.2 - 51.7 % 02/26/2021 10:06 AM CDT [facility] MCV 90.3 80.7 - 98.3 fl 02/26/2021 10:06 AM CDT [facility] MCH 28.2 26.7 - 34.0 pg 02/26/2021 10:06 AM CDT [facility] MCHC 31.2 30.8 - 35.9 gm/dL 02/26/2021 10:06 AM CDT [facility] Platelet Count 409 153 - 416 x10E9/L 02/26/2021 10:06 AM CDT [facility] RDW-CV 18.9(H) 12.1 - 14.9 % 02/26/2021 10:06 AM CDT [facility] MPV 12.0 9.4 - 12.9 fl 02/26/2021 10:06 AM CDT [facility] Neutrophils % 68.8 44.0 - 73.0 % 02/26/2021 10:06 AM CDT [facility] Lymphocytes % 13.4(L) 20.0 - 43.0 % 02/26/2021 10:06 AM CDT [facility] Monocytes % 12.1 5.0 - 13.0 % 02/26/2021 10:06 AM CDT [facility] Eosinophils % 2.9 0.0 - 6.0 % 02/26/2021 10:06 AM CDT [facility] Basophils % 1.2 0.0 - 2.0 % 02/26/2021 10:06 AM CDT [facility] Immature Granulocytes 1.6(H) 0 - 1 % 02/26/2021 10:06 AM CDT [facility] Neutrophil Absolute 9.37(H) 2.01 - 7.14 x10E9/L 02/26/2021 10:06 AM CDT [facility] Lymphocytes Absolute 1.83 1.07 - 3.94 x10E9/L 02/26/2021 10:06 AM CDT [facility] Monocytes Absolute 1.65(H) 0.26 - 1.07 x10E9/L 02/26/2021 10:06 AM CDT [facility] Eosinophils Absolute 0.39 0 - 0.47 x10E9/L 02/26/2021 10:06 AM CDT [facility] Basophils Absolute 0.16(H) 0 - 0.08 x10E9/L 02/26/2021 10:06 AM CDT [facility] Immature Granulocytes Absolute 0.22(H) 0.00 - 0.06 x10E9/L 02/26/2021 10:06 AM CDT [facility] nRBC Auto 0 /100 WBC 02/26/2021 10:06 AM T [facility] Blood BLOOD SPECIMEN / Unknown Venipuncture / Unknown 02/26/2021 5:18 AM CDT 02/26/2021 9:05 AM CDT Tamela Espinosa DO LAB - HEMATOLOGY ORD ERABLES [facility] [address] [place] [address] documented in this encounter Visit Diagnoses Not on filedocumented in this encounter Care Teams Equipment Service Lead Relationship Specialty Start Date End Date Yun Mccall, HEALTH INSURANCE AGENT-RN AMBULATORY [address] [facility] [address] [place] [id number] PCP - General 11/24/17 09/20/21 Jordan Grigsby PA [address] [place] [address] [id number] PCP - General 09/21/21 documented as of this encounter
--- OUTSIDE RECORDS SUMMARY | 2024-11-01 13:25 | XMS_ITS | Patient Health Record ---
Author Organization [facility] Address [address] [place] [address] Care Team Providers Care Vascular Sonographer Name Role Phone Colleen Krause Primary Care Provider Allergies Allergen (clinical drug ingredient) Drug/Non Drug Allergy documented on EMR Reaction Allergy Type Onset Date Status sudafed (uncoded) shakiness Allergy Ac tive Reason For Referral No Information Medications Medication SIG (Take, Route, Frequency, Duration) Notes Start Date End Date Status chlordiazePOXIDE HCl 25 MG 1 capsule Ora lly once a day for 7 days then STOP for 07 days Active Atorvastatin Calcium 10 MG 1 tablet Oral ly Once a day for 30 days Active Vistaril 50 MG 1 capsule as needed Orally every 8 hrs for 30 days Active amLODIPine Besylate 5 MG 1 tablet Orally Once a day for 30 days Active Gabapentin 300 MG 1 capsule Orally Thr ee times a day for 30 days Active Mirtazapine 15 MG 1 tablet before bedt luis in the evening Orally Once a day for 30 days Active Amitriptyline HCl 25 MG 1 tab in am 2 at hs Orally twice daily for 30 days Active Ibuprofen 800 MG TAKE 1 TABLET THREE TIMES A DAY. 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) Active confirmed Problem 37913488 Allergic rhiniti s (J30.9) Active confirmed Problem 230156249 Physical exam (Z00.00) Active confirmed Problem 12906866 HTN (hypertensio n) (I10) Active confirmed Problem 86666646 Depression (F32.9) Active confirmed Problem 25111715 Hyperlipidemia (E78.5) Active confirmed Problem 46278855 Alcohol abuse wi th physiological dependence (F10.20) Active confirmed Problem 17016831 Left hip pain (M25.552) Active confirmed Problem 70176050 Right wrist pain (M25.531) Active confirmed Problem 906138128 PPD screening te st (Z11.1) Active confirmed Problem 82933899 Sciatica of left side (M54.32) Active confirmed Problem Bipolar affective disorder, currently manic, mild (373223241) Bipolar 1 disorder, manic, mild (F31.11) Active confirmed Problem 82343862 Chronic pain (G89.29) Active confirmed Problem Arthralgia (96908758) Arthralgia (M25.50) Active confirmed Problem 128988635 DM (diabetes mellitus screen) (Z13.1) Active confirmed Problem 965937621 Sacroiliac pain (M53.3) Active confirmed Plan Of Treatment Pending Test Test Name Order Date X ray : Hip, unilateral w/ Pelvis; 1 vie w : 24611 11/13/2015 X ray : Wrist, right; 2 Views : 19215 X ray : SI joint, left 11/13/2015 Electrocardiogram (ECG) : 38862 09/21/19 16 Lipid Panel 03/01/2016 MARGA, IFA RHEUMATOID ARTHRITIS DIAGNOSTIC PANEL WITH REFLEX TITER/PATTERN 11/26/2015 LIPID PANEL 11/26/2015 COMPREHENSIVE METABOLIC PANEL 09/21/2015 COMPREHENSIVE METABOLIC PANEL 11/26/2015 CBC (INCLUDES DIFF/PLT) 11/26/2015 CBC (INCLUDES DIFF/PLT) 09/21/2015 SED RATE BY MODIFIED WESTERGREN 11/26/19 16 RHEUMATOID FACTOR 11/26/2015 VITAMIN B12/FOLATE, SERUM PANEL 09/21/19 16 VITAMIN D, 1,25 DIHYDROXY LC/MS/MS 11/25 Insurance Providers Payer Name Payer Address Payer Phone Subscriber Number Group Number Insured Name Patient Relationship to Insured Coverage Start Date Coverage End Date Medicaid [employer] Primary Only [address] [place] [address] [id number] Gage Ag Self - patient is the insured 6 Medical (General) History Medical History History ICD Code hypertension depression hyperlipidemia Neurapathy Arthritis Surgical History Surgery Date(Month/Year) neck injury, smashed disc
--- OUTSIDE RECORDS SUMMARY | 2024-11-01 13:25 | XMS_ITS ---
Author Organization [facility] Address [address] [place] [address] Care Team Providers Care Chemical Recovery Operator Name Role Phone Brian Mendez Primary Care Provider [phone] Allergies Allergen (clinical drug ingredient) Drug/Non Drug Allergy documented on EMR Reaction Allergy Type Onset Date Status No Known Drug Allergy Unknown Drug Allergy Active No Known Food Allergy Unknown Drug Allergy Active REASON FOR VISIT ON CRU-Establishing Care, Diminion drawing labs, would like A1c order. Medications Medication SIG (Take, Route, Fr equency, Duration) Notes Start Date End Date Status hydrOXYzine HCl 25 MG 1 tablet as needed for anxiety Orally twice a day Activ e Multivitamin Adult - Orally for 30 days Active Amitriptyline HCl 25 MG 1 tablet Orally Once a day for 30 days Active carBAMazepine 200 MG 1 tablet Orally Twice a day Active Ibuprofen 200 MG 1 tablet with food o r milk as needed Orally Three times a day Active Thiamine HCl 100 MG 1 tablet Orally Once a day Active Folic Acid 1 MG 1 tablet Orally Once a day Active Gabapentin 800 MG 1 tablet Orally twice a day Active NIFEdipine ER 30 MG 1 tablet Orally Once a day Active Social History Tobacco Use: Social History Observation Description Date Details (start date - stop date) Current Smoker NA - NA Sex Assigned At : Social History Observation Description Sex Assigned At Male Dont use, Tobacco Use/Smoking Question Answer Notes Are you a current every day smoker Section Notes: Problems Problem Type SNOMED Code ICD Code Onset Dates Problem Status W/U Status Risk Notes Problem Disorder caused by alcohol (disorder) (504257634) Alcohol use disorder (F10.99) Active confirmed Problem Hypertension (54799478) Hypertension (I10) 3 Active confirmed Problem Mood disorder (62428356) Mood disorder (F39) 3 Active confirmed Vital Signs Weight 187 lbs 06/02/2023 Oximetry 97 % 06/02/2023 Heart Rate 101 /min 06/02/2023 Blood pressure systolic 140 mm Hg 06/02/20 23 Blood pressure diastolic 72 mm Hg 023 Height 72 in 06/02/2023 BMI 25.36 kg/m2 06/02/2023 Respiratory Rate 16 /min 06/02/2023 Encounters Encounter Location Date Provider Diagnosis [address] [place] [address] 06/02/2023 Brian Mendez Hypertension I10 ; Neuropathy G62.9 ; Alcohol use disorder F10.99 ; Mood disorder F39 and Metabolic syndrome E88.810 Assessments Encounter Date Diagnosis (ICD Code) Assessment Notes Treatment Notes Treatment Clinical Notes Section Notes 06/02/2023 Hypertension (ICD-10 - I10) 06/02/2023 Neuropathy (ICD-10 - G62.9) 06/02/2023 Alcohol use disorder (ICD-10 - F10.99) continue in cru for detox medically stable for participation in activities that do not require running or balance 06/02/2023 Mood disorder (ICD-10 - F39) 06/02/2023 Metabolic syndrome (ICD-10 - E88.810) Plan Of Treatment Medication Medication Name Sig Start Date Stop Date Notes hydrOXYzine HCl 25 MG 1 tablet as needed for anxiety Orally twice a day Gabapentin 800 MG 1 tablet Orally twice a day NIFEdipine ER 30 MG 1 tablet Orally Once a day Treatment Notes Assessment Notes Alcohol use disorder continue in cru for detox medically stable for participation in activities that do not require running or balance Next Appt Details Follow Up: 4 Weeks, Reason: in axtell Progress Notes * Gage HYDEDOB:1975 (48 yo M)Acc No.[id number]:06/02/2023 Progress Notes Patient: Gage Cintron Provider: Slick Mendez :1975 A ge:48 Y S ex:Male Date:06/02/2023 Address:[address] [place] [address], [place], [place]-[address] Pcp:Mei Melchor Check In:10:53 AM DISPUTE RESOLUTION SPECIALIST Subjective: * Chief Complaints: * O N CRU-Establishing Care, Diminion drawing labs, would like A1c order. * HPI: I nterim History: ESTABLISH PCP WHILE IN CRU D ETOX FROM ALXOHOL, DAY 3 (LAST DRINK 05/31) 5 TALLBOYS AND 0-2 SHOTS PER DAY C HRONIC HBP, TREATED WITH NIFEDIPINE XL 30 MG DAILY T OLERATES WELL C HRONIC BURNING IN FEET AND LEGS S OME NUMBNESS B ALANCE ISSUES N O RECENT FALLS NOTED G ABAPENTIN HELPS PAIN A MITRIPTYLINE HELPS DEPRESSION SOME N OT INTERESTED IN CHANGING MEDS AT PRESENT T AKES GABAPENTIN 800 MG BID, NOT TID I NTERESTED IN TAKING XANAX BECAUSE HIS BROTHER NOTES THAT HE TAKES IT AND DOES NOT WANT TO DRINK AT ALL S MOKES CIGARETTES BUT DENIES ANY OTHER SUBSTANCE D OWN TO 1/2 PPD AND TRYING TO QUIT. Emergency room visit N o. Was hospitalized N o. D epression Screening: PHQ-9 L ittle interest or pleasure in doing things?Not at all F eeling down, depressed, or hopeless N ot at all T rouble falling or staying asleep, or sleeping too much N ot at all F eeling tired or having little energy N ot at all P oor appetite or overeating N ot at all F eeling bad about yourself or that you are a failure, or have let yourself or your family down N ot at all T rouble concentrating on things, such as reading the newspaper or watching television N ot at all M oving or speaking so slowly that other people could have noticed; or the opposite, being so fidgety or restless that you have been moving around a lot more than usual N ot at all T houghts that you would be better off or of hurting yourself in some way N ot at all S creening: Napoleon Suicide Severity Rating Scale (LF) D o you want to initiate with S creener form 1 . Wish to be : Have you wished you were or wished you could go to sleep and not wake up? N o 2 . Suicidal Thoughts: Have you actually had any thoughts of killing yourself? N o 6 . Suicide Behaviour: Have you ever done anything,started to do anything, or prepared to end your life? N o C SSRS Interpretation and Follow Up Plan: CSSRS Interpretation and Follow Up Plan. CSSRS Interpretation and Follow Up Plan M oderate or High risk requires selection of a follow up plan C SSRS No/Low: intervention not needed at this time C onstitutional: Health Literacy B ased on interaction with patient, assessed patient to have m inimal health literacy. * ROS: B asic ROS: Admits S hortness of breath. D enies C hest pain.?Denies D izziness. D enies F luid Accumulation in the legs. D enies A bdominal Pain. D enies B lood in Stool. D enies B lood in urine. D enies D ifficulty urinating. D enies B ack Problems. D enies J oint Stiffness. D enies P ainful joints. D enies S wollen joints. D enies W eakness. A dmits T ingling/Numbness, f eet. * Medical History: * Surgical History: l eft index finger 11/10/2017neck surgery * Hospitalization/Major Diagno stic Procedure: c rebecca - pancritis 2016 * Family History: F ather: , killed by drunk special needs bus driver. M other: alive. 6 brother(s) , 3 sister(s) - healthy. 3 son(s) - healthy. . * Social History: P rimary Social History: L iving Arrangement L iving Arrangement: D ependent Living L iving with: Rachael sanchez I s this a supportive environment? Y es Alcohol Use A lcohol Use Frequency: W eekly or Daily T ype of alcohol consumed B eer Q uanity consumed on those occasions M ore than 6 10-12 cans of beer daily. Illicit Substance Usage I llicit Substance Usage: No ..? Employment Status E mployment Status: U nemployed Tobacco Use T obacco Use: C urrent T obacco Use: T obacco Use/Smoking A re you a c urrent every day smoker M iscellaneous: M ethod of learning P referred method of learning: R grace * Medications: T akingNIFEdipine ER 30 MG Tablet Extended Release 24 Hour 1 tablet Orally Once a dayFolic Acid 1 MG Tablet 1 tablet Orally Once a dayThiamine HCl 100 MG Tablet 1 tablet Orally Once a dayIbuprofen 200 MG Tablet 1 tablet with food or milk as needed Orally Three times a daycarBAMazepine 200 MG Tablet 1 tablet Orally Twice a dayAmitriptyline HCl 25 MG Tablet 1 tablet Orally Once a dayMultivitamin Adult - Tablet Orally Gabapentin 800 MG Tablet 1 tablet Orally twice a dayTaking NIFEdipine ER 30 MG Tablet Extended Release 24 Hour 1 tablet Orally Once a dayTaking Folic Acid 1 MG Tablet 1 tablet Orally Once a dayTaking Thiamine HCl 100 MG Tablet 1 tablet Orally Once a dayTaking Ibuprofen 200 MG Tablet 1 tablet with food or milk as needed Orally Three times a dayTaking carBAMazepine 200 MG Tablet 1 tablet Orally Twice a dayTaking Amitriptyline HCl 25 MG Tablet 1 tablet Orally Once a dayTaking Multivitamin Adult - Tablet Orally Taking Gabapentin 800 MG Tablet 1 tablet Orally twice a dayDiscontinuedhydrOXYzine HCl 50 MG Tablet 1 tablet as needed Orally every 6 hrsSEROquel 100 MG Tablet For the first 2 nights, take 1/2 tab, then 1 tablet at bedtime Orally Once a dayMirtazapine 30 MG Tablet 1 tablet at bedtime Orally Once a daylevETIRAcetam 500 MG Tablet 1 tablet Orally Twice a dayamLODIPine Besylate 10 MG Tablet 1 tablet Orally Once a dayAtorvastatin Calcium 10 MG Tablet 1 tablet Orally Once a dayNicotine Step 1 21 MG/24HR Patch 24 Hour 1 patch to skin Transdermal Once a daychlordiazePOXIDE HCl 25 MG Capsule 1 capsule Orally Three times a day, Notes: hold during detoxMedication List reviewed and reconciled with the patientDiscontinued hydrOXYzine HCl 50 MG Tablet 1 tablet as needed Orally every 6 hrsDiscontinued SEROquel 100 MG Tablet For the first 2 nights, take 1/2 tab, then 1 tablet at bedtime Orally Once a dayDiscontinued Mirtazapine 30 MG Tablet 1 tablet at bedtime Orally Once a dayDiscontinued levETIRAcetam 500 MG Tablet 1 tablet Orally Twice a dayDiscontinued amLODIPine Besylate 10 MG Tablet 1 tablet Orally Once a dayDiscontinued Atorvastatin Calcium 10 MG Tablet 1 tablet Orally Once a dayDiscontinued Nicotine Step 1 21 MG/24HR Patch 24 Hour 1 patch to skin Transdermal Once a dayDiscontinued chlordiazePOXIDE HCl 25 MG Capsule 1 capsule Orally Three times a day, Notes: hold during detoxMedication List reviewed and reconciled with the patient * Allergies: N o Known Drug AllergyNo Known Food Allergyno[Allergies Verified] Objective: * Vitals: W t:187, Ht:72, BMI:25.36, BP:140/72, HR:101, Oxygen sat %:97, RR:16, Pain scale:5. * Examination: G eneral Examination: GENERAL APPEARANCE: w ell developed, well nourished, in no acute distress. HEAD: n ormocephalic, atraumatic. EYES: P ERRLA, sclera and conjunctiva clear. EARS External ears intact. NOSE: n cody patent, no lesions, septum intact. ORAL CAVITY: m ucosa moist. THROAT: n o erythema, no exudate, pharynx normal. NECK/THYROID: n o JVD, no goiter. SKIN: w arm and dry, no rashes. HEART: r egular rate and rhythm, no murmurs. LUNGS: r espirations regular and easy, clear to auscultation bilaterally. ABDOMEN: b owel sounds present, soft, nontender, nondistended, no masses palpable, no organomegaly . MUSCULOSKELETAL: n o joint deformity, swelling, redness, or warmth , ALFONSO upper and lower extremities. EXTREMITIES: n o clubbing, cyanosis, or edema. NEUROLOGIC: c ranial nerves 2-12 grossly intact, DTR'S 2+ BTK, ABSENT AT ANKLES, TONE AND STRENGTH SYMMETRIC, GAIT BROAD BASED BUT STEADY. ? Assessment: * Assessment: 1. H ypertension - I10 2 . N europathy - G62.9 (Primary) 3 . A lcohol use disorder - F10.99 4 . M ood disorder - F39 5 . M etabolic syndrome - E88.810 Plan: * Treatment: 2. H ypertension Continue NIFEdipine ER Tablet Extended Release 24 Hour, 30 MG, 1 tablet, Orally, Once a day. ? 3. A lcohol use disorder L AB: CMP 14 Comprehensive Metabolic Panel* (Ordered for 06/02/2023) Notes: continue in cru for detox medically stable for participation in activities that do not require running or balance 4. M ood disorder Start hydrOXYzine HCl Tablet, 25 MG, 1 tablet as needed for anxiety, Orally, twice a day, 30. ? 5. M etabolic syndrome L AB: Lipid Panel* (Ordered for 06/02/2023) L AB: Hemoglobin A1c* (Ordered for 06/02/2023) * Recommended Wellness and Pre vention Guidelines: * S tatus A lert L ast Done N ext Due A ction Taken N ONCOMPLIANT C holesterol screen (genl pop) - 1 - N ONCOMPLIANT C olorectal cancer screening - 1 - * Procedure Codes: 3 008F BODY MASS INDEX [id number] BODY MASS INDEX [id number] MEDICAL NUTRITION, INDIV, [id number] MEDICAL NUTRITION, INDIV, [id number] BEHAV CHNG SMOKING 3-10 [id number] BEHAV CHNG SMOKING 3-10 MIN * Preventive Medicine: Counseling: C are goal follow-up plan: BMI management provided Y es Above Normal BMI Follow-up L ifestyle education regarding diet BMI management provided Y es Above Normal BMI Follow-up L ifestyle education regarding diet S MOKING: Patient counselled on the dangers of tobacco use and urged to quit. . Patient counselled on the dangers of tobacco use and urged to quit. . * Follow Up: 4 Weeks (Reason: in axtell) * * Sign off status: Completed true * Provider: Slick Mendez Date: Generated for Emily knott/Latricia/Jakobitting on: 0 11/01/2024 01:25 PM CDT History and Physical Notes * HPI (History of Present Illness) Category Sub-Category Detail Notes Category Not es Interim History Was hospitalized No Emergency room visit No Depression Screening PHQ-9 Little inte rest or pleasure in doing things: Not at all Feeling down, depressed, or hopeless: No t at all Trouble falling or staying asleep, or sl eeping too much: Not at all Feeling tired or having little energy: N ot at all Poor appetite or overeating: Not at all Feeling bad about yourself o r that you are a failure, or have let yourself or your family down: Not at all Trouble concentrating on thi ngs, such as reading the newspaper or watching television: Not at all Moving or speaking so slowly that other people could have noticed; or the opposite, being so fidgety or restless that you have been moving around a lot more than usual: Not at all Thoughts that you would be b nory off or of hurting yourself in some way: Not at all Constitutional Health Literacy Based on interac tion with patient, assessed patient to have : minimal health literacy. Screening Napoleon Suicide Sev erity Rating Scale (LF) Do [...] or prepared to end your life?: No Do Not Use CSSRS Interpretation and Follow Up Plan CSSRS Interpretation and Follow Up Plan Moderate or High risk requires selection of a follow up plan: CSSRS No/Low: intervention not needed at this time Examination Category Sub-Category Detail Notes Category Not es General Examination GENERAL APPEARANCE: well dev eloped, well nourished, in no acute distress HEAD: normocephalic, atrau matic EYES: PERRLA, sclera and c onjunctiva clear EARS External ears intact NOSE: nares patent, no les ions, septum intact THROAT: no erythema, no exud ate, pharynx normal NECK/THYROID: no JVD, no goiter HEART: regular rate and rhy thm, no murmurs LUNGS: respirations regular and easy, clear to auscultation bilaterally ABDOMEN: bowel sounds present , soft, nontender, nondistended, no masses palpable, no organomegaly NEUROLOGIC: cranial nerves 2-12 grossly intact, DTR'S 2+ BTK, ABSENT AT ANKLES, TONE AND STRENGTH SYMMETRIC, GAIT BROAD BASED BUT STEADY SKIN: warm and dry, no kera hes EXTREMITIES: no clubbing, cyanosi s, or edema MUSCULOSKELETAL: no joint deformity, swelling, redness, or warmth , ALFONSO upper and lower extremities ORAL CAVITY: mucosa moist
--- OUTSIDE RECORDS SUMMARY | 2024-11-01 13:25 | XMS_ITS | Encounter Summary ---
Author Organization [facility] Address [address] [place] [address] Care Team Providers Care Thermodynamics Teacher Name Role Phone StefanyYun Ela ROSADO Primary Care Provider Jordan Grigsby Primary Care Provider [phone] Encounter Details Date Type Department Care Team (Late st Contact Info) Description 03/08/2021 Lab Requisition [facility] [address] [place] [address] Tamela Espinosa, [address] [place] [address] Social History Tobacco Use Types Packs/Day Years [...] Associated Diagnosis Comments COMPREHENSIVE METABOLIC PANEL STAT 03/08/2021 3:50 AM CDT documented in this encounter Results * (ABNORMAL) COMPREHENSIVE METABOLIC PANEL (03/08/2021 3:50 AM CDT) Glucose 116(H) 70 - 105 mg/dL 03/08/2021 2:40 PM CDT [facility] Sodium 139 136 - 145 mmol/L 03/08/2021 2:40 PM CDT [facility] Potassium 4.3 3.5 - 5.1 mmol/L 03/08/2021 2:40 PM CDT [facility] Chloride 102 98 - 107 mmol/L 03/08/2021 2:40 PM CDT [facility] CO2 20(L) 23 - 31 mmol/L 03/08/2021 2:40 PM CDT [facility] Calcium 9.4 8.4 - 10.4 mg/dL 03/08/2021 2:40 PM CDT [facility] Anion Gap 17 8 - 18 mmol/L 03/08/2021 2:40 PM CDT [facility] BUN 15 8.9 - 20.6 mg/dL 03/08/2021 2:40 PM CDT [facility] Creatinine 0.70(L) 0.72 - 1.25 mg/dL 03/08/2021 2:40 PM CDT [facility] Alkaline Phosphatase 306(H) 40 - 150 U/L 03/08/2021 2:40 PM CDT [facility] ALT 30 0 - 61 U/L 03/08/2021 2:40 PM CDT [facility] AST 53(H) 5 - 34 U/L 03/08/2021 2:40 PM CDT [facility] Protein Total 8.3 6.4 - 8.3 gm/dL 03/08/2021 2:40 PM CDT [facility] Albumin 3.5 3.5 - 5.2 gm/dL 03/08/2021 2:40 PM CDT [facility] Bilirubin Total 1.1 0.2 - 1.2 mg/dL 03/08/2021 2:40 PM CDT [facility] eGFR by MDRD >60 >60 mL/min/1.7 3m2 03/08/2021 2:40 PM CDT [facility] eGFR by MDRD >60 >60 mL/min/1.7 3m2 03/08/2021 2:40 PM CDT [facility] Blood BLOOD SPECIMEN / Unknown Venipuncture / Unknown 03/08/2021 3:50 AM CDT 03/08/2021 1:44 PM CDT Tamela Espinosa DO LAB - CHEMISTRY ANIRUDH LUJAN [facility] [address] [place] [address] documented in this encounter Visit Diagnoses Not on filedocumented in this encounter Care Teams Thermodynamics Teacher Relationship Specialty Start Date End Date Yun Mccall, QUALITATIVE FIELD COORDINATOR-CLINICAL CONSULTANT [address] [facility] [address] [place] [id number] PCP - General 11/24/17 09/20/21 Jordan Grigsby PA [address] [place] [address] [address] [place] [address] PCP - General 09/21/21 documented as of this encounter
--- OUTSIDE RECORDS SUMMARY | 2024-11-01 13:25 | XMS_ITS | Clinical Summary ---
Author Organization [facility] Address [address] [place] [address] Care Team Providers Care Stakeholder Manager Name Role Phone Jordan Grigsby Primary Care Provider Unavail able Hans Toro MD Unavailable [phone] Active Problems Problem Noted Date Diagnosed Date Alcohol abuse with withdrawa l, unspecified (CMS/HCC HHS/HCC) 03/25/2021 Elevation of levels of liver transaminase levels 03/25/2021 Essential (primary) hypertension 03/25/2021 Hyperlipidemia, unspecified 03/25/2021 Nicotine dependence, cigarettes, uncomplicated 0 03/25/2021 Schizoaffective disorder, unspecified (CMS/HCC H HS/HCC) 03/25/2021 Overview (04/24/2022): F25.9 - Psychiatric - high Added by Interface Family History Medical History Relation Comments Alcohol Abuse Father Relation Status Comments Father Social History Tobacco Use Types Packs/Day Years Used Date Smoking Tobacco: Every Day Smokeless Tobacco: Never Alcohol Use Standard Drinks/Week Comments Yes 0 (1 standard drink = 0.6 oz pur e alcohol) Sex and Gender Information Value Date Recorded Sex Assigned at Not on file Legal Sex Male 4:29 PM CDT Gender Identity Not on file Sexual Orientation Not on file Plan of Treatment Health Maintenance Due Date Last Done Comments Colorectal Cancer Screening Colonoscopy (10 Years) 1974 Annual Physical 1977 Pneumococcal Vaccine: Pediatrics (0 to 5 Years) and At-Risk Patients (6 to 64 Years) (1 of 2 - PCV) 1980 Hepatitis C 1992 Hepatitis B Vaccines (1 of 3 - 19+ 3-dose series) 1993 DTaP, Tdap and Td Vaccines ( 2 - Td or Tdap) 12/13/2021 12/14/2011 Zoster Vaccines (1 of 2) 2024 COVID-19 Vaccine (3 - 2023-2 5 season) 2024 01/01/2021, 11/30/2020 Influenza Adult (#1) 2024 PHQ-2 (Physician [place]) 08/14/2024 Meningococcal B Vaccine Aged Out No l onger eligible based on patient's age to complete this topic Meningococcal Vaccine Aged Out No zora rahat eligible based on patient's age to complete this topic RSV Immunizations Under 20 Months Aged Out No longer eligible b ased on patient's age to complete this topic Insurance Care Teams Stakeholder Manager Relationship Specialty Start Date End Date Jordan Grigsby PA PCP - General PHYSICIAN CAMPAIGN DIRECTOR 04/21/21 Hans Toro MD [address] [place] [address] INTERNAL MEDICINE 06/06/24
--- OUTSIDE RECORDS SUMMARY | 2024-11-01 13:25 | XMS_ITS | Encounter Summary ---
Author Organization [facility] Healthcare Address [address] [place] [address] Care Team Providers Care Gas Appliance Servicer Helper Name Role Phone Jordan Grigsby Primary Care Provider [phone] Ирина Antony DOT NET ARCHITECT Primary Care Provider [phone] Jordan Grigsby Primary Care Provider [phone] Hans Toro MD Primary Care Provider Encounter Details Date Type Department Care Team (Late st Contact Info) Description 06/04/2021 AMH Enrollment [facility] Off Program [address] [place] [address] Cheryl Montana Social History Tobacco Use Types Packs/Day Years Used Date Smoking Tobacco: Every Day Cigarettes Smokeless Tobacco: Never PHQ-2 Answer Date Recorded PHQ-2 Total Score (If total score is 3 or more points, staff should administer the PHQ-9) 0 06/04/2021 Sex and Gender Information Value Date Recorded Sex Assigned at Not on file 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 What were the results of the screening methods? PHQ2/9 - 10. Pt identifies feelings of depression, lack of sleep, lack of appetite and shame/guilt regarding drinking. Pt declined to participate in DAST, states he does not use drugs AUDIT - 24 Pt states he drinks 6 shots and 2-6 beers daily, seems to be minimizing. Pt denies SI, HI, AVH. Pt does not appear to be experiencing sx of psychosis but does report hx of hallucinations in the setting of alcohol withdrawal. Brief Intervention What was discussed with the patient? What stage of change are they in? What are some barriers to treatment? Pt difficult to assess due to intoxication. Pt observed to be sleeping when staff exited room and difficult to rouse. Pt gave conflicting reports regarding amount of alcohol consumed daily, amount ofalcohol consumed this day. Pt identifies that he has children but only names a son and grandchild that he is close to. Pt reports that he has been to treatment before and stayed in a [employer] program for 19 months. Initially reports longest period of sobriety was 19 months but then states under one year of continuous sobriety. Pt denies currently having a sponsor, has worked with one in [facility]. Pt reports that he has acquaintances that are sober but also has many friends that are still drinking and/or use drugs - identified several previous patients of Warm Handoff. Pt unable to identify where he lives and/or who he lives with and intimates essential homelessness. [facility] stating that he did not have [place] [facility] [place] and provided address of a [employer] store in [place], [place] as his current location that [facility] could send a cab to. 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 Pt denies hx of mental illness but later reported that he has been dx with depression and anxiety. Pt denies hx of suicide attempts, suicidal ideation, homicidal ideation, inpt psych stays. Strengths - family support, previous exposure and engagement in treatment, some peer support, limited insight, insured, access to insurance-approved transportation to appointments Barriers - seems minimizing/guarded, frequent relapses, hx of drinking, unstable housing, unable toconsistently communicate effectively due to intoxication, lack of person transportation Stage of Change - Action Referral to Treatment What are the next steps? What is the treatment plan? When is their appointment? What resources were given? Pt unsure of where/if he would like to follow up for alcoholism, attempted to discuss residential vs outpatient services. Due to intoxication, Pt unable to endorse next steps. Will revisit during admission to ascertain clear d/c plan. documented in this encounter Plan of Treatment Not on file documented as of this encounter Goals Goal Patient Goal Type Associated Problems Recent Progress Patient-Stated? Author Quit drinking alcohol Alcohol Use No Flower Denny Note: Pt will come 3-5 days in medical stabilization to address alcohol withdrawal. documented as of this encounter Visit Diagnoses Not on filedocumented in this encounter Care Teams Gas Appliance Servicer Helper Relationship Specialty Start Date End Date Jordan Grigsby PA PCP - General Physician Music Education Director 12/30/20 02/08/22 Ирина Antony NP PCP - General Nephrology 02/09/22 12/02/22 Jordan Grigsby PA PCP - General Physician Music Education Director 12/03/22 04/25/24 Hans Toro MD [id number] [address] PCP - General Internal Medicine 04/26/24 documented as of this encounter
--- OUTSIDE RECORDS SUMMARY | 2024-11-01 13:25 | XMS_ITS ---
Author Organization [facility] Address [address] [place] [address] Care Team Providers Care Corporate Securities Research Analyst Name Role Phone Brian Mendez Primary Care Provider Kerrie Abarca [phone] REASON FOR VISIT Rx Medications Medication SIG (Take, Route, Fr equency, Duration) Notes Start Date End Date Status Gabapentin 800 MG 1 tablet Orally thre e times a day for 30 days Active Social History Sex Assigned At : Social History Observation Description Sex Assigned At Male Encounters Encounter Location Date Provider Diagnosis [address] [address] 05/31/2023 Kerrie Abarca Plan Of Treatment Medication Medication Name Sig Start Date Stop Date Notes Gabapentin 800 MG 1 tablet Orally thre e times a day for 30 days Progress Notes * Gage HYDEDOB:1975 (48 yo M)Acc No.[id number]:05/31/2023 Patient: Gage Cintron :1975 A ge:48 Y S ex:Male Address:[address] [place], [address] * Refills Refill Gabapentin Tablet, 800 MG, Orally, 90 Tablet, 1 tablet, three times a day, 30 days, Refills=0 * true * Date: Generated for Printi ng/Faxing/eTransmitting on: 0 11/01/2024 01:25 PM CDT
--- OUTSIDE RECORDS SUMMARY | 2024-11-01 13:25 | XMS_ITS | Encounter Summary ---
Author Organization [facility] Health Address [address] [place] [address] Care Team Providers Care Stone Lathe Operator Name Role Phone Yun Mccall Ela ROSADO Primary Care Provider Jordan Grigsby Primary Care Provider [phone] Encounter Details Date Type Department Care Team (Late st Contact Info) Description 2021 Lab Requisition [facility] [address] [place] [address] Boyd Mathias MD [address] [place] [address] Social History Tobacco Use Types Packs/Day Years [...] Associated Diagnosis Comments COMPREHENSIVE METABOLIC PANEL STAT 2021 5:37 AM CDT documented in this encounter Results * (ABNORMAL) COMPREHENSIVE METABOLIC PANEL (2021 5:37 AM CDT) Glucose 107(H) 70 - 105 mg/dL 2021 8:55 AM CDT [facility] Sodium 138 136 - 145 mmol/L 2021 8:55 AM CDT [facility] Potassium 4.3 3.5 - 5.1 mmol/L 2021 8:55 AM CDT [facility] Chloride 103 98 - 107 mmol/L 2021 8:55 AM CDT [facility] CO2 22(L) 23 - 31 mmol/L 2021 8:55 AM CDT [facility] Calcium 10.0 8.4 - 10.4 mg/dL 2021 8:[facility] Anion Gap 13 8 - 18 mmol/L 2021 8:55 AM CDT [facility] BUN 14 8.9 - 20.6 mg/dL 2021 8:55 AM CDT [facility] Creatinine 0.68(L) 0.72 - 1.25 mg/dL 2021 8:55 AM [facility] Alkaline Phosphatase 294(H) 40 - 150 U/L 2021 8:55 AM CDT [facility] ALT 19 0 - 61 U/L 2021 8:55 AM CDT [facility] AST 32 5 - 34 U/L 2021 8:55 AM CDT [facility] Protein Total 8.3 6.4 - 8.3 gm/dL 2021 8:55 AM CDT [facility] Albumin 3.6 3.5 - 5.2 gm/dL 2021 8:55 AM CDT [facility] Bilirubin Total 0.7 0.2 - 1.2 mg/dL 2021 8:55 AM [facility] eGFR by MDRD >60 >60 mL/min/1.7 3m2 2021 8:55 AM CDT [facility] eGFR by MDRD >60 >60 mL/min/1.7 3m2 2021 8:55 AM [facility] Blood BLOOD SPECIMEN / Unknown Venipuncture / Unknown 2021 5:37 AM CDT 2021 8:20 AM CDT Boyd Mathias MD LAB - CHEMISTRY ANIRUDH Strauss Organization Address City/State/ZIP Co de Phone Number [facility] [address] [place] [address] documented in this encounter Visit Diagnoses Not on filedocumented in this encounter Care Teams Stone Lathe Operator Relationship Specialty Start Date End Date Yun Mccall, PRETZEL PACKER-SOFTWARE SUPPORT ENGINEER [address] [facility] [address] [place] [id number] PCP - General 11/24/17 09/20/21 Jordan Grigsby PA [address] [place] [address] [address] [place] [address] PCP - General 09/21/21 documented as of this encounter
--- OUTSIDE RECORDS SUMMARY | 2024-11-01 13:25 | XMS_ITS | Encounter Summary ---
Author Organization [facility] Address [address] [facility] [place] [address] Care Team Providers Care Scrubbing Machine Operator Name Role Phone Yun Mccall ALONZO Primary Care Provider Jordan Grigsby Primary Care Provider [phone] Encounter Details Date Type Department Care Team (Late st Contact Info) Description 03/22/2021 Lab Requisition [facility] [address] [place] [address] [place] [address] [place] [address] Social History Tobacco Use Types Packs/Day Years [...] Associated Diagnosis Comments COMPREHENSIVE METABOLIC PANEL STAT 03/22/2021 3:30 AM CDT documented in this encounter Results * (ABNORMAL) COMPREHENSIVE METABOLIC PANEL (03/22/2021 3:30 AM CDT) Glucose 113(H) 70 - 105 mg/dL 03/22/2021 11:42 AM CDT [facility] Sodium 136 136 - 145 mmol/L 03/22/2021 11:42 AM CDT [facility] Potassium 3.8 3.5 - 5.1 mmol/L 03/22/2021 11:42 AM CDT [facility] Chloride 103 98 - 107 mmol/L 03/22/2021 11:42 AM CDT [facility] CO2 21(L) 23 - 31 mmol/L 03/22/2021 11:42 AM CDT [facility] Calcium 9.4 8.4 - 10.4 mg/dL 03/22/2021 11:42 AM CDT [facility] Anion Gap 12 8 - 18 mmol/L 03/22/2021 11:42 AM CDT [facility] BUN 9 8.9 - 20.6 mg/dL 03/22/2021 11:42 AM CDT [facility] Creatinine 0.68(L) 0.72 - 1.25 mg/dL 03/22/2021 11:42 AM [facility] Alkaline Phosphatase 265(H) 40 - 150 U/L 03/22/2021 11:42 AM CDT [facility] ALT 20 0 - 61 U/L 03/22/2021 11:42 AM CDT [facility] AST 32 5 - 34 U/L 03/22/2021 11:42 AM CDT [facility] Protein Total 7.7 6.4 - 8.3 gm/dL 03/22/2021 11:42 AM [facility] Albumin 3.4(L) 3.5 - 5.2 gm/dL 03/22/2021 11:42 AM T [facility] Bilirubin Total 0.5 0.2 - 1.2 mg/dL 03/22/2021 11:[facility] eGFR by MDRD >60 >60 mL/min/1.7 3m2 03/22/2021 11:42 AM CDT [facility] eGFR by MDRD >60 >60 mL/min/1.7 3m2 03/22/2021 11:42 AM [facility] Blood BLOOD SPECIMEN / Unknown Venipuncture / Unknown 03/22/2021 3:30 AM CDT 03/22/2021 10:58 AM CDT Charles Munoz MD LAB - CHEMISTRY ANIRUDH LUJAN [facility] [address] [place] [address] documented in this encounter Visit Diagnoses Not on filedocumented in this encounter Care Teams Scrubbing Machine Operator Relationship Specialty Start Date End Date Yun Mccall, ARTILLERY OFFICER-LOFT PATTERNMAKER [address] [facility] [address] [place] [address] PCP - General 11/24/17 09/20/21 Jordan Grigsby PA [address] [place] [address] [address] [place] [address] PCP - General 09/21/21 documented as of this encounter
--- OUTSIDE RECORDS SUMMARY | 2024-11-01 13:25 | XMS_ITS | Encounter Summary ---
Author Organization [facility] Address [address] [facility] [place] [address] Care Team Providers Care Med Care Manager Name Role Phone StefanyYun Ela ROSADO Primary Care Provider Jordan Grigsby Primary Care Provider [phone] Encounter Details Date Type Department Care Team (Late st Contact Info) Description 03/01/2021 Lab Requisition [facility] [address] [place] [address] Tamela Espinosa, [address] [place] [address] Social History Tobacco Use Types Packs/Day Years [...] Associated Diagnosis Comments COMPREHENSIVE METABOLIC PANEL STAT 03/01/2021 4:32 AM CDT documented in this encounter Results * (ABNORMAL) COMPREHENSIVE METABOLIC PANEL (03/01/2021 4:32 AM CDT) Glucose 143(H) 70 - 105 mg/dL 03/01/2021 9:07 AM [facility] Sodium 136 136 - 145 mmol/L 03/01/2021 9:07 AM [facility] Potassium 4.4 3.5 - 5.1 mmol/L 03/01/2021 9:07 AM [facility] Chloride 101 98 - 107 mmol/L 03/01/2021 9:07 AM [facility] CO2 22(L) 23 - 31 mmol/L 03/01/2021 9:07 AM [facility] Calcium 9.4 8.4 - 10.4 mg/dL 03/01/2021 9:07 AM [facility] Anion Gap 13 8 - 18 mmol/L 03/01/2021 9:07 AM [facility] BUN 11 8.9 - 20.6 mg/dL 03/01/2021 9:07 AM [facility] Creatinine 0.69(L) 0.72 - 1.25 mg/dL 03/01/2021 9:07 AM [facility] Alkaline Phosphatase 388(H) 40 - 150 U/L 03/01/2021 9:07 AM [facility] ALT 35 0 - 61 U/L 03/01/2021 9:07 AM [facility] AST 67(H) 5 - 34 U/L 03/01/2021 9:07 AM [facility] Protein Total 8.1 6.4 - 8.3 gm/dL 03/01/2021 9:07 AM [facility] Albumin 3.3(L) 3.5 - 5.2 gm/dL 03/01/2021 9:07 AM [facility] Bilirubin Total 1.2 0.2 - 1.2 mg/dL 03/01/2021 9:07 AM [facility] eGFR by MDRD >60 >60 mL/min/1.7 3m2 03/01/2021 9:07 AM [facility] eGFR by MDRD >60 >60 mL/min/1.7 3m2 03/01/2021 9:07 AM [facility] Blood BLOOD SPECIMEN / Unknown Venipuncture / Unknown 03/01/2021 4:32 AM CDT 03/01/2021 8:34 AM CDT Tamela Espinosa DO LAB - CHEMISTRY ANIRUDH LUJAN [facility] [address] [place], [place] [id number] documented in this encounter Visit Diagnoses Not on filedocumented in this encounter Care Teams Med Care Manager Relationship Specialty Start Date End Date Yun Mccall, MARKETING COMMUNICATIONS COORDINATOR-FLIGHT OPERATIONS SPECIALIST [address] [facility] [address] [place] [address] PCP - General 11/24/17 09/20/21 Jordan Grigsby PA [address] [place] [address] [address] [place] [address] PCP - General 09/21/21 documented as of this encounter
--- OUTSIDE RECORDS SUMMARY | 2024-11-01 13:25 | XMS_ITS | Encounter Summary ---
Author Organization [facility] Address [address] [facility] [address] [place] [address] Care Team Providers Care Fur Matcher Name Role Phone StefanyYun Ela ROSADO Primary Care Provider Jordan Grigsby Primary Care Provider [phone] Encounter Details Date Type Department Care Team (Late st Contact Info) Description 03/15/2021 Lab Requisition [facility] [address] [place] [address] Tamela Espinosa, [address] [place] [address] Social History Tobacco Use Types Packs/Day Years [...] Associated Diagnosis Comments COMPREHENSIVE METABOLIC PANEL STAT 03/15/2021 3:30 AM CDT documented in this encounter Results * (ABNORMAL) COMPREHENSIVE METABOLIC PANEL (03/15/2021 3:30 AM CDT) Glucose 104 70 - 105 mg/dL 03/15/2021 10:39 AM CDT [facility] Sodium 138 136 - 145 mmol/L 03/15/2021 10:39 AM CDT [facility] Potassium 4.6 3.5 - 5.1 mmol/L 03/15/2021 10:39 AM [facility] Chloride 100 98 - 107 mmol/L 03/15/2021 10:39 [facility] CO2 24 23 - 31 mmol/L 03/15/2021 10:39 AM [facility] Calcium 9.7 8.4 - 10.4 mg/dL 03/15/2021 10:39 AM [facility] Anion Gap 14 8 - 18 mmol/L 03/15/2021 10:39 AM CDT [facility] BUN 12 8.9 - 20.6 mg/dL 03/15/2021 10:39 AM [facility] Creatinine 0.67(L) 0.72 - 1.25 mg/dL 03/15/2021 10:39 AM [facility] Alkaline Phosphatase 290(H) 40 - 150 U/L 03/15/2021 10:39 AM [facility] ALT 21 0 - 61 U/L 03/15/2021 10:39 AM T [facility] AST 32 5 - 34 U/L 03/15/2021 10:39 AM [facility] Protein Total 8.2 6.4 - 8.3 gm/dL 03/15/2021 10:39 AM [facility] Albumin 3.6 3.5 - 5.2 gm/dL 03/15/2021 10:39 AM [facility] Bilirubin Total 0.9 0.2 - 1.2 mg/dL 03/15/2021 10:39 AM [facility] eGFR by MDRD >60 >60 mL/min/1.7 3m2 03/15/2021 10:39 AM [facility] eGFR by MDRD >60 >60 mL/min/1.7 3m2 03/15/2021 10:39 AM [facility] Blood BLOOD SPECIMEN / Unknown Venipuncture / Unknown 03/15/2021 3:30 AM CDT 03/15/2021 9:14 AM T Tamela Espinosa DO LAB - CHEMISTRY ANIRUDH LUJAN [facility] [address] [place] [address] documented in this encounter Visit Diagnoses Not on filedocumented in this encounter Care Teams Fur Matcher Relationship Specialty Start Date End Date Yun Mccall, PEELER OPERATOR-FLOUR BLENDER [address] [facility] [address] [place] [address] PCP - General 11/24/17 09/20/21 Jordan Grigsby PA [address] [place] [address] [address] [place] [phone] PCP - General 09/21/21 documented as of this encounter
--- OUTSIDE RECORDS SUMMARY | 2024-11-01 13:25 | XMS_ITS | Clinical Summary ---
Author Organization [facility] Address [address] [place] [address] Phone Care Team Providers Care Safety Lamp Keeper Name Role Phone Unavailable Primary Care Provider Unavailabl e Social History Tobacco Use Types Packs/Day Years Used Date Smoking Tobacco: Never Assessed Sex and Gender Information Value Date Recorded Sex Assigned at Not on file Legal Sex Male 10:53 AM SCALE CLERK Gender Identity Not on file Sexual Orientation Not on file Plan of Treatment Health Maintenance Due Date Last Done Comments DTAP/TDAP/TD VACCINES (1 - Tdap) 1993 HEPATITIS B VACCINES (1 of 3 - 19+ 3-dose series) 01/1993 COLORECTAL SCREENING 2019 Colorectal Cancer Screening 2019 FIT-DNA Q 3 years 2019 FIT/FOBT Q 1 year 2019 Flex Sig/CT Colonography Q 5 years 2019 INFLUENZA VACCINE (#1) 2024 ZOSTER VACCINE (1 of 2) 2024 Insurance [place]
--- OUTSIDE RECORDS SUMMARY | 2024-11-01 13:26 | XMS_ITS | Referral Summary ---
Author Organization [facility] Address [address] [place] [address] Care Team Providers Care Customer Service Associate Name Role Phone Hans Toro MD Primary Care Provider Encounters Date Type Department Care Team Description 08/28/2024 Documentation [facility] [address] [place], [place] [phone] Merced Hamilton 08/05/2024 1:54 PM SURVEILLANCE OFFICER - 08/16/2024 5:02 PM SURVEILLANCE OFFICER Hospital Encounter [facility] [address] [place] [address] Gayla Nova MD Sinha, Chandni, MD Saeed, Salman, MD Quaizar, Huzaifa, MD Bezuneh, Abraham Deneke, MD Alcohol withdrawal syndrome, uncomplicated (HCC) (Primary Dx) Discharge Disposition: Discharge to home or self care 08/12/2024 Documentation [facility] [address] [place], [place] [phone] Nilo Conrad RRT 08/09/2024 Documentation [facility] [address] [place], [place] [phone] Cheryl Montana 08/09/2024 Documentation [facility] [address] [place], [place] [phone] Cheryl Montana 08/08/2024 Documentation [facility] [address] [place], [place] [phone] Cheryl Montana 08/08/2024 Documentation [facility] [address] [place], [place] [phone] Cheryl Montana 08/05/2024 [facility] Enrollment [facility] [address] [place], [place] [phone] Vineet Russo 08/05/2024 11:30 AM SURVEILLANCE OFFICER Lab [facility] [address] [place] [address] 08/05/2024 Documentation [facility] [address] [place], [place] [phone] Vineet Russo from Last 3 Months Allergies No known active allergies Medications gabapentin (NEURONTIN) 800 mg tablet Take 1 tablet (800 mg total) by mouth 3 (three) times a day 90 tablet 11 12/31/2020 Active QUEtiapine (SEROquel) 200 mg tablet Take 1 tablet (200 mg total) by mouth nightly Active QUEtiapine (SEROquel) 50 mg tablet Take 1 tablet (50 mg total) by mouth 2 (two) times a day Active cloNIDine (CATAPRES) 0.1 mg tablet Take 1 tablet (0.1 mg total) by mouth nightly Active rosuvastatin (CRESTOR) 20 mg tablet Take 1 tablet (20 mg total) by mouth nightly Active NIFEdipine (NIFEdipine CC) 30 mg 24 hr tablet Take 1 tablet (30 mg total) by mouth daily Active amitriptyline (ELAVIL) 25 mg tabletIndicatio ns:anxiety Take 1 tablet (25 mg total) by mouth 2 (two) times a day Active docusate sodium (COLACE) 100 mg capsuleIndicati ons:constipatio n Take 1 capsule (100 mg total) by mouth 2 (two) times a day 60 capsule 08/16/2024 Active Active Problems Problem Noted Date Diagnosed Date Alcohol withdrawal syndrome without complication 04/26/2024 HTN (hypertension) 10/30/2023 Hyperlipidemia 10/30/2023 Alcohol withdrawal syndrome, uncomplicated 12/03 Elevated blood pressure reading 06/05/2021 Alcohol abuse with withdrawal 06/04/2021 Rambling speech 08/11/2020 Alcoholism 07/16/2020 Poor historian 07/16/2020 Peripheral neuropathy Osteoarthritis GERD (gastroesophageal reflux disease) Depression Anxiety Immunizations Immunization Administration Dates Next Due Moderna SARS-CoV-2 Monovalent Vaccination (12+ Y RS) 01/01/2021,11/30/2020 Social History Tobacco Use Types Packs/Day Years Used Date Smoking Tobacco: Every Day Cigarettes Smokeless Tobacco: Never [facility] Utilities Answer Date Recorded In the past 12 months has e Dualog, gas, oil, or water company threatened to shut off services in your home? No 04/29/2024 Social Connection and Isolat ion Panel [NHANES] Answer Date Recorded In a typical week, how many times do you talk on the phone with family, friends, or neighbors? Twice a week 04/29/2024 How often do you get togethe r with friends or relatives? Twice a week 04/29/2024 How often do you attend chur ch or yazdanism services? More than 4 times per year 04/29/2024 Do you belong to any clubs o r organizations such as anabaptism groups, unions, fraternal or athletic groups, or school groups? Yes 04/29/2024 How often do you attend meet ings of the clubs or organizations you belong to? Never 04/29/2024 Are you , , di vorced, , never , or living with a partner? Never 04/29/2024 AUDIT-C Answer Date Recorded Q1: How often do you have a drink containing alcohol? 4 or more times a week 12/03/2022 Q2: How many drinks containi ng alcohol do you have on a typical day when you are drinking? 10 or more Q3: How often do you have si x or more drinks on one occasion? Daily or almost daily 12/03/2022 Overall Financial Resource Strain (CARDIA) Answe r Date Recorded How hard is it for you to pa y for the very basics like food, housing, medical care, and heating? Somewhat hard 04/29/2024 PHQ-2 Answer Date Recorded PHQ-2 Total Score (If total score is 3 or more points, staff should administer the PHQ-9) 0 06/04/2021 Hunger Vital Sign Answer Date Recorded Within the past 12 months, y ou worried that your food would run out before you got the money to buy more. Never true 04/29/20 24 Within the past 12 months, t he food you bought just didn't last and you didn't have money to get more. Never true 04/29/2024 PRAPARE - Transportation Answer Date Re corded In the past 12 months, has l ack of transportation kept you from medical appointments or from getting medications? No 04/14 In the past 12 months, has l ack of transportation kept you from meetings, work, or from getting things needed for daily living? No 04/29/2024 Housing Stability Vital Sign Answer Luis Angel e Recorded In the last 12 months, was t here a time when you were not able to pay the mortgage or rent on time? No 04/29/2024 In the past 12 months, how m any times have you moved where you were living? 0 04/29/2024 At any time in the past 12 m ont, were you homeless or living in a snf (including now)? No 04/29/2024 Personal Safety Answer Date Recorded Have you ever been in or are you currently in a harmful physical or emotional relationship or is someone making you feel afraid or unsafe? Denies 08/05/2024 Sex and Gender Information Value Date Recorded Sex Assigned at Not on file Legal Sex Male 4:16 AM SURVEILLANCE OFFICER Gender Identity Not on file Sexual Orientation Not on file Last Filed Vital Signs Vital Sign Reading Time Taken Comments Blood Pressure 137/71 08/16/2024 12:16 PM SURVEILLANCE OFFICER Pulse 93 08/16/2024 12:16 PM SURVEILLANCE OFFICER Temperature 36.1 C (96.9 F) 08/16/2024 12:16 PM SURVEILLANCE OFFICER Respiratory Rate 12 08/16/2024 7:42 AM SURVEILLANCE OFFICER Oxygen Saturation 97% 08/16/2024 12: 16 PM SURVEILLANCE OFFICER Inhaled Oxygen Concentration - - Weight 83.3 kg (183 lb 10.3 oz) 08/12/2024 4:04 AM SURVEILLANCE OFFICER Height 182.9 cm (6') 08/05/2024 2:50 PM SURVEILLANCE OFFICER Body Mass Index 24.91 08/05/2024 2:50 PM SURVEILLANCE OFFICER Plan of Treatment Not on file Goals Goal Patient Goal Type Associated Problems Recent Progress Patient-Stated? Author Quit drinking alcohol Alcohol Use No Flower Denny Note: Pt will come 3-5 days in medical stabilization to address alcohol withdrawal. Procedures Procedure Name Priority Date/Time Associated Diagnosis Comments MANUAL DIFFERENTIAL Routine 08/16/2024 5 :17 AM SURVEILLANCE OFFICER EGFR Routine 08/16/2024 5:17 AM SURVEILLANCE OFFICER BILIRUBIN, DIRECT Routine 08/16/2024 5:1 7 AM SURVEILLANCE OFFICER MAGNESIUM Routine 08/16/2024 5:17 AM SURVEILLANCE OFFICER COMPREHENSIVE METABOLIC PANEL Routine 08/16/2024 5:17 AM SURVEILLANCE OFFICER CBC WITH AUTO DIFFERENTIAL Routine 08/16/2024 5:17 AM SURVEILLANCE OFFICER EGFR Routine 08/15/2024 12:22 PM SURVEILLANCE OFFICER BILIRUBIN, DIRECT Routine 08/15/2024 12: 22 PM SURVEILLANCE OFFICER DIFFERENTIAL AUTO Routine 08/15/2024 12: 22 PM SURVEILLANCE OFFICER MAGNESIUM Routine 08/15/2024 12:22 PM SURVEILLANCE OFFICER COMPREHENSIVE METABOLIC PANEL Routine 08/15/2024 12:22 PM SURVEILLANCE OFFICER CBC WITH AUTO DIFFERENTIAL Routine 08/15/2024 12:22 PM SURVEILLANCE OFFICER EGFR Routine 08/14/2024 9:53 AM SURVEILLANCE OFFICER BILIRUBIN, DIRECT Routine 08/14/2024 9:5 3 AM SURVEILLANCE OFFICER DIFFERENTIAL AUTO Routine 08/14/2024 9:5 3 AM SURVEILLANCE OFFICER MAGNESIUM Routine 08/14/2024 9:53 AM SURVEILLANCE OFFICER COMPREHENSIVE METABOLIC PANEL Routine 08/14/2024 9:53 AM SURVEILLANCE OFFICER CBC WITH AUTO DIFFERENTIAL Routine 08/14/2024 9:53 AM SURVEILLANCE OFFICER EGFR Routine 08/13/2024 3:33 AM SURVEILLANCE OFFICER BILIRUBIN, DIRECT Routine 08/13/2024 3:3 3 AM SURVEILLANCE OFFICER DIFFERENTIAL AUTO Routine 08/13/2024 3:3 3 AM SURVEILLANCE OFFICER MAGNESIUM Routine 08/13/2024 3:33 AM SURVEILLANCE OFFICER COMPREHENSIVE METABOLIC PANEL Routine 08/13/2024 3:33 AM SURVEILLANCE OFFICER CBC WITH AUTO DIFFERENTIAL Routine 08/13/2024 3:33 AM SURVEILLANCE OFFICER EGFR Routine 08/12/2024 10:35 AM SURVEILLANCE OFFICER BILIRUBIN, DIRECT Routine 08/12/2024 10: 35 AM SURVEILLANCE OFFICER MAGNESIUM Routine 08/12/2024 10:35 AM SURVEILLANCE OFFICER COMPREHENSIVE METABOLIC PANEL Routine 08/12/2024 10:35 AM SURVEILLANCE OFFICER DIFFERENTIAL AUTO Routine 08/12/2024 10: 34 AM SURVEILLANCE OFFICER CBC WITH AUTO DIFFERENTIAL Routine 08/12/2024 10:34 AM SURVEILLANCE OFFICER INFECTION PREVENTION MRSA ONLY (STAPHYLOCOCCUS AUREUS) PCR Routine 08/12/2024 9:50 AM SURVEILLANCE OFFICER LACTATE Routine 08/12/2024 9:17 AM SURVEILLANCE OFFICER EGFR Routine 08/11/2024 3:56 PM SURVEILLANCE OFFICER DIFFERENTIAL AUTO Routine 08/11/2024 3:5 6 PM SURVEILLANCE OFFICER LACTATE Routine 08/11/2024 3:56 PM SURVEILLANCE OFFICER CBC WITH AUTO DIFFERENTIAL Routine 08/11/2024 3:56 PM SURVEILLANCE OFFICER COMPREHENSIVE METABOLIC PANEL Routine 08/11/2024 3:56 PM SURVEILLANCE OFFICER BLOOD CULTURE Routine 08/11/2024 3:56 PM SURVEILLANCE OFFICER BLOOD CULTURE Routine 08/11/2024 3:56 PM SURVEILLANCE OFFICER DIFFERENTIAL AUTO STAT 08/11/2024 10: 12 AM SURVEILLANCE OFFICER CBC WITH AUTO DIFFERENTIAL STAT 08/11/2024 10:[address] ABDOMEN PELVIS W CONTRAST Critical/Life-T hreatening 08/11/2024 7:55 AM SURVEILLANCE OFFICER EGFR Routine 08/11/2024 6:40 AM SURVEILLANCE OFFICER BILIRUBIN, DIRECT Routine 08/11/2024 6:4 0 AM SURVEILLANCE OFFICER DIFFERENTIAL AUTO Routine 08/11/2024 6:4 0 AM SURVEILLANCE OFFICER LACTATE STAT 08/11/2024 6:40 AM SURVEILLANCE OFFICER MAGNESIUM Routine 08/11/2024 6:40 AM SURVEILLANCE OFFICER COMPREHENSIVE METABOLIC PANEL Routine 08/11/2024 6:40 AM SURVEILLANCE OFFICER CBC WITH AUTO DIFFERENTIAL Routine 08/11/2024 6:40 AM SURVEILLANCE OFFICER XR ABDOMEN AP 1 VIEW IP Routine 08/11/2024 12:56 AM SURVEILLANCE OFFICER DIFFERENTIAL AUTO Routine 08/10/2024 10: 59 AM SURVEILLANCE OFFICER CBC WITH AUTO DIFFERENTIAL Routine 08/10/2024 10:59 AM SURVEILLANCE OFFICER EGFR Routine 08/10/2024 8:29 AM SURVEILLANCE OFFICER BILIRUBIN, DIRECT Routine 08/10/2024 8:2 9 AM SURVEILLANCE OFFICER MAGNESIUM Routine 08/10/2024 8:29 AM SURVEILLANCE OFFICER COMPREHENSIVE METABOLIC PANEL Routine 08/10/2024 8:29 AM SURVEILLANCE OFFICER EGFR Routine 08/09/2024 9:13 AM SURVEILLANCE OFFICER BILIRUBIN, DIRECT Routine 08/09/2024 9:1 3 AM SURVEILLANCE OFFICER DIFFERENTIAL AUTO Routine 08/09/2024 9:1 3 AM SURVEILLANCE OFFICER MAGNESIUM Routine 08/09/2024 9:13 AM SURVEILLANCE OFFICER COMPREHENSIVE METABOLIC PANEL Routine 08/09/2024 9:13 AM SURVEILLANCE OFFICER CBC WITH AUTO DIFFERENTIAL Routine 08/09/2024 9:13 AM SURVEILLANCE OFFICER EGFR Routine 08/08/2024 9:43 AM SURVEILLANCE OFFICER MANUAL DIFFERENTIAL Routine 08/08/2024 9 :43 AM SURVEILLANCE OFFICER BILIRUBIN, DIRECT Routine 08/08/2024 9: 43 AM SURVEILLANCE OFFICER MAGNESIUM Routine 08/08/2024 9:43 AM SURVEILLANCE OFFICER COMPREHENSIVE METABOLIC PANEL Routine 08/08/2024 9:43 AM SURVEILLANCE OFFICER CBC WITH AUTO DIFFERENTIAL Routine 08/08/2024 9:43 AM SURVEILLANCE OFFICER EGFR Routine 08/07/2024 3:34 AM SURVEILLANCE OFFICER BILIRUBIN, DIRECT Routine 08/07/2024 3:3 4 AM SURVEILLANCE OFFICER DIFFERENTIAL AUTO Routine 08/07/2024 3:3 4 AM SURVEILLANCE OFFICER PHOSPHORUS Routine 08/07/2024 3:34 AM SURVEILLANCE OFFICER MAGNESIUM Routine 08/07/2024 3:34 AM SURVEILLANCE OFFICER COMPREHENSIVE METABOLIC PANEL Routine 08/07/2024 3:34 AM SURVEILLANCE OFFICER CBC WITH AUTO DIFFERENTIAL Routine 08/07/2024 3:34 AM SURVEILLANCE OFFICER EGFR Routine 08/06/2024 4:45 AM SURVEILLANCE OFFICER BILIRUBIN, DIRECT Routine 08/06/2024 4:4 5 AM SURVEILLANCE OFFICER DIFFERENTIAL AUTO Routine 08/06/2024 4:4 5 AM SURVEILLANCE OFFICER MAGNESIUM Routine 08/06/2024 4:45 AM SURVEILLANCE OFFICER COMPREHENSIVE METABOLIC PANEL Routine 08/06/2024 4:45 AM SURVEILLANCE OFFICER CBC WITH AUTO DIFFERENTIAL Routine 08/06/2024 4:45 AM SURVEILLANCE OFFICER ETHANOL Routine 08/06/2024 4:45 AM SURVEILLANCE OFFICER EGFR STAT 08/05/2024 10:48 AM SURVEILLANCE OFFICER CBC WITHOUT DIFFERENTIAL STAT 08/05/2024 10:48 AM SURVEILLANCE OFFICER DRUGS OF ABUSE SCREEN, URINE WITHOUT CONFIRMATION STAT 08/05/2024 10:48 AM SURVEILLANCE OFFICER COMPREHENSIVE METABOLIC PANEL STAT 08/05/2024 10:48 AM SURVEILLANCE OFFICER HEPATITIS C ANTIBODY Routine 04/27/2024 2:14 AM CDT from Last 3 Months or Most Recently Relevant to Health Maintenance Results * eGFR (08/16/2024 5:17 AM SURVEILLANCE OFFICER) eGFR >90 >=60 mL/min/1. 73 m2 Comment: Interpretive Data Reference Interval Normal >/= 90 mL/min/1.73m2 Mildly decreased* 60 - 89 mL/min/1.73m2 Mildly to moderately decreased 45 - 59 mL/min/1.73m2 Moderately to severely decreased 30 - 44 mL/min/1.73m2 Severely decreased 15 - 29 mL/min/1.73m2 Kidney Failure < 15 mL/min/1.73m2 *Relative to young adult level Estimated glomerular filtration rate is determined by the 2020 CKD-EPI equation recommended by the National Kidney Foundation (A Unifying Approach to GFR Estimation: Recommendations of the NKF-ASK Task Force on Reassessing the Inclusion of Race in Diagnosing Kidney Disease, JASN 2020). The CKD-EPI equation should not be used for patients with unstable renal function and has not been validated in children and those over 70. Current interpretive data was last reviewed 2021. Blood 08/16/2024 5:17 AM SURVEILLANCE OFFICER 08/16/2024 6:29 AM SURVEILLANCE OFFICER us Matthieu Bautista MD LAB BLOOD ORDERABLES Final Resu lt [facility] ([place]) 1 [facility] Department [place] [address] * (ABNORMAL) CBC with auto differential (08/16/2024 5:17 AM SURVEILLANCE OFFICER) WBC 10.9(H) 3.8 - 9.9 K/cumm Hgb 12.5(L) 13.0 - 17.5 g/dL [facility] ([place] Hct 37.5(L) 38.9 - 50.3 % [facility] ([place] Plt 263 150 - 400 K/cumm [facility] ([place] MPV 10.1 9.1 - 12.3 fL [facility] ([place] RBC 3.99(L) 4.30 - 5.80 M/cumm [facility] ([place]) MCV 94.0 81.3 - 96.4 fL [facility] ([place] MCH 31.3 27.1 - 33.3 pg [facility] ([place]) MCHC 33.3 32.3 - 35.7 g/dL [facility] ([place]) RDW CV 12.8 11.1 - 14.9 % [facility] RDW SD 44.2 35.7 - 48.1 fL [facility] ([place] NRBC abs 0.00 0.00 - 0.01 K/cumm [facility] ([place]) Blood 08/16/2024 5:17 AM SURVEILLANCE OFFICER 08/16/2024 6:29 AM SURVEILLANCE OFFICER us Matthieu Bautista MD LAB BLOOD ORDERABLES Final Resu lt [facility] ([place]) 1 [facility] Department [place] [address] * (ABNORMAL) Manual Differential (08/16/2024 5:17 AM SURVEILLANCE OFFICER) Differential Manual Cells Counted 100 [facility] ([place]) Neutrophil abs 6.1 1.5 - 6.5 K/cumm [facility] ([place]) Imm gran abs 0.4(H) 0.0 - 0.1 K/cumm [facility] ([place]) Lymphocyte abs 3.6(H) 0.8 - 3.3 K/cumm [facility] ([place]) Monocyte abs 0.4 0.2 - 0.8 K/cumm [facility] ([place]) Eosinophil abs 0.1 0.0 - 0.5 K/cumm [facility] ([place]) Basophil abs 0.2(H) 0.0 - 0.1 K/cumm [facility] ([place]) Neutrophil pct 55.0 % [facility] ([place] Comment: Interpretive Data Percent cell count reference ranges are not reported, since discordance with absolute values may lead to misinterpretation of CBC data. Current Interpretive Data was last revised on 2017. Lymphocyte pct 33.0 % [facility] ([place] Comment: Interpretive Data Percent cell count reference ranges are not reported, since discordance with absolute values may lead to misinterpretation of CBC data. Current Interpretive Data was last revised on 2017. Monocyte pct 4.0 % [facility] ([place]) Comment: Interpretive Data Percent cell count reference ranges are not reported, since discordance with absolute values may lead to misinterpretation of CBC data. Current Interpretive Data was last revised on 2017. Eosinophil pct 1.0 % [facility] ([place] Comment: Interpretive Data Percent cell count reference ranges are not reported, since discordance with absolute values may lead to misinterpretation of CBC data. Current Interpretive Data was last revised on 2017. Basophil pct 2.0 % [facility] ([place]) Comment: Interpretive Data Percent cell count reference ranges are not reported, since discordance with absolute values may lead to misinterpretation of CBC data. Current Interpretive Data was last revised on 2017. Band Neutrophil pct 1.0 0.0 - 5.0 % [facility] ([place]) Metamyelocyte pct 3.0(H) 0.0 - 0.0 % [facility] Myelocyte pct 1.0(H) 0.0 - 0.0 % [facility] RBC morphology Consistent with RBC Indicies [facility] ([place]) Platelet estimate Adequate [facility] ([place]) Blood 08/16/2024 5:17 AM SURVEILLANCE OFFICER 08/16/2024 6:29 AM SURVEILLANCE OFFICER us Matthieu Bautista MD LAB BLOOD ORDERABLES Final Resu lt [facility] ([place]) 1 [facility] [place] [address] * Magnesium (08/16/2024 5:17 AM SURVEILLANCE OFFICER) Magnesium 1.4 1.4 - 2.5 mg/dL Blood 08/16/2024 5:17 AM SURVEILLANCE OFFICER 08/16/2024 6:29 AM SURVEILLANCE OFFICER Matthieu Bautista MD LAB BLOOD ORDERABLES Final Resu lt [facility] ([place]) 1 [facility] [place] [address] * Bilirubin, direct (08/16/2024 5:17 AM SURVEILLANCE OFFICER) Bilirubin, direct 0.1 0.1 - 0.3 mg/dL Blood 08/16/2024 5:17 AM SURVEILLANCE OFFICER 08/16/2024 6:29 AM SURVEILLANCE OFFICER us Matthieu Bautista MD LAB BLOOD ORDERABLES Final Resu lt [facility] ([place]) 1 [facility] Department [place] [address] * (ABNORMAL) Comprehensive metabolic panel (08/16/2024 5:17 AM SURVEILLANCE OFFICER) Sodium 136 135 - 145 mmol/L Potassium, pl 3.6 3.3 - 4.9 mmol/L [facility] Chloride 101 97 - 110 mmol/L [facility] CO2 23 22 - 32 mmol/L [facility] Anion gap 12 2 - 15 mmol/L [facility] ([place] BUN 6 6 - 25 mg/dL [facility] ([place] Creatinine 0.56(L) 0.80 - 1.30 mg/dL [facility] ([place] Glucose 126 70 - 199 mg/dL [facility] ([place] Comment: Interpretive Data Fasting glucose >/= 126 mg/dl is diagnostic for diabetes. Fasting is defined as no caloric intake for at least 8 hours. Fasting glucose between 100 mg/dl to 125 mg/dl is diagnostic of prediabetes. In a patient with classic symptoms of hyperglycemia or hyperglycemic crisis, a random glucose >/= 200 mg/dl is diagnostic for diabetes. In the absence of unequivocal hyperglycemia, results should be confirmed by repeat testing. The classification and Diagnosis of Diabetes Diabetes Care 2021; 46: S19-S40. Current interpretive data was last revised 2022. Calcium 9.5 8.5 - 10.3 mg/dL [facility]) Bilirubin, total 0.2 0.1 - 1.2 mg/dL [facility] ([place]) Protein, pl 6.6 6.5 - 8.5 g/dL [facility] ([place]) Albumin 3.5 3.5 - 5.0 g/dL [facility] ([place]) Alk phos 85 40 - 130 Units/L [facility] ([place]) ALT 21 7 - 55 Units/L [facility] AST 20 10 - 50 Units/L [facility] ([place]) Blood 08/16/2024 5:17 AM SURVEILLANCE OFFICER 08/16/2024 6:29 AM SURVEILLANCE OFFICER Matthieu Bautista MD LAB BLOOD ORDERABLES Final Resu lt [facility] ([place]) 1 [facility] [place] [address] * eGFR (08/15/2024 12:22 PM SURVEILLANCE OFFICER) eGFR >90 >=60 mL/min/1. 73 m2 Comment: Interpretive Data Reference Interval Normal >/= 90 mL/min/1.73m2 Mildly decreased* 60 - 89 mL/min/1.73m2 Mildly to moderately decreased 45 - 59 mL/min/1.73m2 Moderately to severely decreased 30 - 44 mL/min/1.73m2 Severely decreased 15 - 29 mL/min/1.73m2 Kidney Failure < 15 mL/min/1.73m2 *Relative to young adult level Estimated glomerular filtration rate is determined by the 2020 CKD-EPI equation recommended by the National Kidney Foundation (A Unifying Approach to GFR Estimation: Recommendations of the NKF-ASK Task Force on Reassessing the Inclusion of Race in Diagnosing Kidney Disease, JASN 2020). The CKD-EPI equation should not be used for patients with unstable renal function and has not been validated in children and those over 70. Current interpretive data was last reviewed 2021. Blood 08/15/2024 12:2 2 PM SURVEILLANCE OFFICER 08/15/2024 12:36 PM SURVEILLANCE OFFICER us Matthieu Bautista MD LAB BLOOD ORDERABLES Final Resu lt [facility] ([place]) 1 [facility] [place] [address] * (ABNORMAL) Differential, auto (08/15/2024 12:22 PM SURVEILLANCE OFFICER) Neutrophil abs 5.9 1.5 - 6.5 K/cumm Imm gran abs 0.5(H) 0.0 - 0.1 K/cumm [facility] ([place]) Lymphocyte abs 2.6 0.8 - 3.3 K/cumm [facility] ([place]) Monocyte abs 1.3(H) 0.2 - 0.8 K/cumm [facility] ([place]) Eosinophil abs 0.3 0.0 - 0.5 K/cumm [facility] ([place]) Basophil abs 0.3(H) 0.0 - 0.1 K/cumm [facility] ([place]) Neutrophil pct 54.8 % [facility] ([place]) Comment: Interpretive Data Percent cell count reference ranges are not reported, since discordance with absolute values may lead to misinterpretation of CBC data. Current Interpretive Data was last revised on 2017. Imm gran pct 4.7 % [facility] ([place]) Comment: Interpretive Data Percent cell count reference ranges are not reported, since discordance with absolute values may lead to misinterpretation of CBC data. Current Interpretive Data was last revised on 2017. Lymphocyte pct 23.8 % [facility] ([place]) Comment: Interpretive Data Percent cell count reference ranges are not reported, since discordance with absolute values may lead to misinterpretation of CBC data. Current Interpretive Data was last revised on 2017. Monocyte pct 11.7 % [facility] ([place]) Comment: Interpretive Data Percent cell count reference ranges are not reported, since discordance with absolute values may lead to misinterpretation of CBC data. Current Interpretive Data was last revised on 2017. Eosinophil pct 2.5 % [facility] ([place]) Comment: Interpretive Data Percent cell count reference ranges are not reported, since discordance with absolute values may lead to misinterpretation of CBC data. Current Interpretive Data was last revised on 2017. Basophil pct 2.5 % [facility] ([place]) Comment: Interpretive Data Percent cell count reference ranges are not reported, since discordance with absolute values may lead to misinterpretation of CBC data. Current Interpretive Data was last revised on 2017. Blood 08/15/2024 12:2 2 PM SURVEILLANCE OFFICER 08/15/2024 12:36 PM SURVEILLANCE OFFICER Matthieu Bautista MD LAB BLOOD ORDERABLES Final Resu lt [facility] ([place]) [address] [facility] [place] [address] * (ABNORMAL) CBC with auto differential (08/15/2024 12:22 PM SURVEILLANCE OFFICER) WBC 10.8(H) 3.8 - 9.9 K/cumm Hgb 12.6(L) 13.0 - 17.5 g/dL [facility] ([place]) Hct 37.3(L) 38.9 - 50.3 % [facility] ([place]) Plt 252 150 - 400 K/cumm [facility] ([place]) MPV 9.6 9.1 - 12.3 fL [facility] ([place]) RBC 4.02(L) 4.30 - 5.80 M/cumm [facility] ([place]) MCV 92.8 81.3 - 96.4 fL [facility] ([place]) MCH 31.3 27.1 - 33.3 pg [facility] ([place]) MCHC 33.8 32.3 - 35.7 g/dL [facility] ([place]) RDW CV 12.8 11.1 - 14.9 % [facility] ([place]) RDW SD 43.8 35.7 - 48.1 fL [facility] ([place]) NRBC abs 0.00 0.00 - 0.01 K/cumm [facility] ([place]) Blood 08/15/2024 12:2 2 PM SURVEILLANCE OFFICER 08/15/2024 12:36 PM SURVEILLANCE OFFICER us Matthieu Bautista MD LAB BLOOD ORDERABLES Final Resu lt [facility] ([place]) 1 [facility] [place] [address] * Magnesium (08/15/2024 12:22 PM SURVEILLANCE OFFICER) Magnesium 1.5 1.4 - 2.5 mg/dL Blood 08/15/2024 12:2 2 PM SURVEILLANCE OFFICER 08/15/2024 12:36 PM SURVEILLANCE OFFICER [facility] 08/15/2024 12:55 PM SURVEILLANCE OFFICER pt RN said please do not disturb due to having a rough night and not being in best mood Matthieu Bautista MD LAB BLOOD ORDERABLES Final Resu lt Performing Organization Address [facility]/ZIP Co de Phone Number [facility] LR ([place]) 1 [facility] [place] [address] * Bilirubin, direct (08/15/2024 12:22 PM SURVEILLANCE OFFICER) Bilirubin, direct 0.1 0.1 - 0.3 mg/dL Blood 08/15/2024 12:2 2 PM SURVEILLANCE OFFICER 08/15/2024 12:36 PM SURVEILLANCE OFFICER Matthieu Bautista MD LAB BLOOD ORDERABLES Final Resu lt Performing Organization Address [facility] de Phone Number [facility] LR ([place]) 1 [facility] [place] [address] * (ABNORMAL) Comprehensive metabolic panel (08/15/2024 12:22 PM SURVEILLANCE OFFICER) Sodium 133(L) 135 - 145 mmol/L Potassium, pl 4.0 3.3 - 4.9 mmol/L [facility] ([place]) Chloride 100 97 - 110 mmol/L [facility] ([place]) CO2 22 22 - 32 mmol/L [facility] ([place]) Anion gap 11 2 - 15 mmol/L [facility] ([place]) BUN 8 6 - 25 mg/dL [facility] ([place]) Creatinine 0.57(L) 0.80 - 1.30 mg/dL [facility] ([place]) Glucose 183 70 - 199 mg/dL [facility] ([place]) Comment: Interpretive Data Fasting glucose >/= 126 mg/dl is diagnostic for diabetes. Fasting is defined as no caloric intake for at least 8 hours. Fasting glucose between 100 mg/dl to 125 mg/dl is diagnostic of prediabetes. In a patient with classic symptoms of hyperglycemia or hyperglycemic crisis, a random glucose >/= 200 mg/dl is diagnostic for diabetes. In the absence of unequivocal hyperglycemia, results should be confirmed by repeat testing. The classification and Diagnosis of Diabetes Diabetes Care 202; 46: S19-S40. Current interpretive data was last revised 2022. Calcium 9.5 8.5 - 10.3 mg/dL [facility] ([place]) Bilirubin, total 0.3 0.1 - 1.2 mg/dL [facility] ([place]) Protein, pl 6.8 6.5 - 8.5 g/dL [facility] ([place]) Albumin 3.4(L) 3.5 - 5.0 g/dL [facility] ([place]) Alk phos 89 40 - 130 Units/L [facility] ([place]) ALT 23 7 - 55 Units/L [facility] ([place]) AST 23 10 - 50 Units/L [facility] ([place]) Blood 08/15/2024 12:2 2 PM SURVEILLANCE OFFICER 08/15/2024 12:36 PM SURVEILLANCE OFFICER us Matthieu Bautista MD LAB BLOOD ORDERABLES Final Resu lt [facility] ([place]) 1 [facility] Department [place] [address] * eGFR (08/14/2024 9:53 AM SURVEILLANCE OFFICER) eGFR >90 >=60 mL/min/1. 73 m2 Comment: Interpretive Data Reference Interval Normal >/= 90 mL/min/1.73m2 Mildly decreased* 60 - 89 mL/min/1.73m2 Mildly to moderately decreased 45 - 59 mL/min/1.73m2 Moderately to severely decreased 30 - 44 mL/min/1.73m2 Severely decreased 15 - 29 mL/min/1.73m2 Kidney Failure < 15 mL/min/1.73m2 *Relative to young adult level Estimated glomerular filtration rate is determined by the 2020 CKD-EPI equation recommended by the National Kidney Foundation (A Unifying Approach to GFR Estimation: Recommendations of the NKF-ASK Task Force on Reassessing the Inclusion of Race in Diagnosing Kidney Disease, JASN 2020). The CKD-EPI equation should not be used for patients with unstable renal function and has not been validated in children and those over 70. Current interpretive data was last reviewed 2021. Blood 08/14/2024 9:53 AM SURVEILLANCE OFFICER 08/14/2024 10:29 AM SURVEILLANCE OFFICER us Matthieu Bautista MD LAB BLOOD ORDERABLES Final Resu lt [facility] ([place]) 1 [facility] Department [place] [address] * (ABNORMAL) Differential, auto (08/14/2024 9:53 AM SURVEILLANCE OFFICER) Neutrophil abs 4.4 1.5 - 6.5 K/cumm Imm gran abs 0.4(H) 0.0 - 0.1 K/cumm [facility] ([place]) Lymphocyte abs 2.3 0.8 - 3.3 K/cumm [facility] ([place]) Monocyte abs 1.5(H) 0.2 - 0.8 K/cumm [facility] ([place]) Eosinophil abs 0.2 0.0 - 0.5 K/cumm [facility] ([place]) Basophil abs 0.2(H) 0.0 - 0.1 K/cumm [facility] ([place]) Neutrophil pct 49.4 % [facility] ([place]) Comment: Interpretive Data Percent cell count reference ranges are not reported, since discordance with absolute values may lead to misinterpretation of CBC data. Current Interpretive Data was last revised on 2017. Imm gran pct 4.2 % [facility] ([place]) Comment: Interpretive Data Percent cell count reference ranges are not reported, since discordance with absolute values may lead to misinterpretation of CBC data. Current Interpretive Data was last revised on 2017. Lymphocyte pct 25.4 % [facility] ([place]) Comment: Interpretive Data Percent cell count reference ranges are not reported, since discordance with absolute values may lead to misinterpretation of CBC data. Current Interpretive Data was last revised on 2017. Monocyte pct 16.4 % [facility] ([place]) Comment: Interpretive Data Percent cell count reference ranges are not reported, since discordance with absolute values may lead to misinterpretation of CBC data. Current Interpretive Data was last revised on 2017. Eosinophil pct 2.3 % [facility] ([place]) Comment: Interpretive Data Percent cell count reference ranges are not reported, since discordance with absolute values may lead to misinterpretation of CBC data. Current Interpretive Data was last revised on 2017. Basophil pct 2.3 % [facility] ([place]) Comment: Interpretive Data Percent cell count reference ranges are not reported, since discordance with absolute values may lead to misinterpretation of CBC data. Current Interpretive Data was last revised on 2017. Blood 08/14/2024 9:53 AM SURVEILLANCE OFFICER 08/14/2024 10:29 AM SURVEILLANCE OFFICER us Matthieu Bautista MD LAB BLOOD ORDERABLES Final Resu lt [facility] ([place]) 1 [facility] Department [place] [address] * (ABNORMAL) CBC with auto differential (08/14/2024 9:53 AM SURVEILLANCE OFFICER) WBC 9.0 3.8 - 9.9 K/cumm Hgb 12.6(L) 13.0 - 17.5 g/dL [facility] ([place]) Hct 37.3(L) 38.9 - 50.3 % [facility] ([place]) Plt 197 150 - 400 K/cumm [facility] ([place]) MPV 10.0 9.1 - 12.3 fL [facility] ([place]) RBC 4.02(L) 4.30 - 5.80 M/cumm [facility] ([place]) MCV 92.8 81.3 - 96.4 fL [facility] ([place]) MCH 31.3 27.1 - 33.3 pg [facility] ([place]) MCHC 33.8 32.3 - 35.7 g/dL [facility] ([place]) RDW CV 12.7 11.1 - 14.9 % [facility] ([place]) RDW SD 43.6 35.7 - 48.1 fL [facility] ([place]) NRBC abs 0.00 0.00 - 0.01 K/cumm [facility] ([place]) Blood 08/14/2024 9:53 AM SURVEILLANCE OFFICER 08/14/2024 10:29 AM SURVEILLANCE OFFICER Matthieu Bautista MD LAB BLOOD ORDERABLES Final Resu lt [facility] LR ([place]) 1 [facility] [place] [address] * Magnesium (08/14/2024 9:53 AM SURVEILLANCE OFFICER) Magnesium 1.6 1.4 - 2.5 mg/dL Blood 08/14/2024 9:53 AM SURVEILLANCE OFFICER 08/14/2024 10:29 AM SURVEILLANCE OFFICER Matthieu Bautista MD LAB BLOOD ORDERABLES Final Resu lt Performing Organization Address [facility]/ZIP Co de Phone Number [facility] ([place]) 1 [facility] [place] [address] * Bilirubin, direct (08/14/2024 9:53 AM SURVEILLANCE OFFICER) Pathologist [facility] Bilirubin, direct 0.2 0.1 - 0.3 mg/dL Blood 08/14/2024 9:53 AM SURVEILLANCE OFFICER 08/14/2024 10:29 AM SURVEILLANCE OFFICER Matthieu Bautista MD LAB BLOOD ORDERABLES Final Resu lt Performing Organization Address City/[facility]/ZIP Co de Phone Number [facility] LR ([place]) 1 [facility] [place] [address] * (ABNORMAL) Comprehensive metabolic panel (08/14/2024 9:53 AM SURVEILLANCE OFFICER) Sodium 133(L) 135 - 145 mmol/L Potassium, pl 3.5 3.3 - 4.9 mmol/L [facility] ([place]) Chloride 101 97 - 110 mmol/L [facility] ([place]) CO2 21(L) 22 - 32 mmol/L [facility] ([place]) Anion gap 11 2 - 15 mmol/L [facility] ([place]) BUN 5(L) 6 - 25 mg/dL [facility] ([place]) Creatinine 0.55(L) 0.80 - 1.30 mg/dL [facility] ([place]) Glucose 164 70 - 199 mg/dL [facility] ([place]) Comment: Interpretive Data Fasting glucose >/= 126 mg/dl is diagnostic for diabetes. Fasting is defined as no caloric intake for at least 8 hours. Fasting glucose between 100 mg/dl to 125 mg/dl is diagnostic of prediabetes. In a patient with classic symptoms of hyperglycemia or hyperglycemic crisis, a random glucose >/= 200 mg/dl is diagnostic for diabetes. In the absence of unequivocal hyperglycemia, results should be confirmed by repeat testing. The classification and Diagnosis of Diabetes Diabetes Care 2021; 46: S19-S40. Current interpretive data was last revised 2022. Calcium 9.0 8.5 - 10.3 mg/dL [facility] ([place]) Bilirubin, total 0.4 0.1 - 1.2 mg/dL [facility] ([place]) Protein, pl 7.0 6.5 - 8.5 g/dL [facility] ([place]) Albumin 3.5 3.5 - 5.0 g/dL [facility] ([place]) Alk phos 100 40 - 130 Units/L [facility] ([place]) ALT 24 7 - 55 Units/L [facility] ([place]) AST 20 10 - 50 Units/L [facility] ([place]) Blood 08/14/2024 9:53 AM SURVEILLANCE OFFICER 08/14/2024 10:29 AM SURVEILLANCE OFFICER us Matthieu Bautista MD LAB BLOOD ORDERABLES Final Resu lt [facility] ([place]) 1 [facility] Department [place] [address] * eGFR (08/13/2024 3:33 AM SURVEILLANCE OFFICER) eGFR >90 >=60 mL/min/1. 73 m2 Comment: Interpretive Data Reference Interval Normal >/= 90 mL/min/1.73m2 Mildly decreased* 60 - 89 mL/min/1.73m2 Mildly to moderately decreased 45 - 59 mL/min/1.73m2 Moderately to severely decreased 30 - 44 mL/min/1.73m2 Severely decreased 15 - 29 mL/min/1.73m2 Kidney Failure < 15 mL/min/1.73m2 *Relative to young adult level Estimated glomerular filtration rate is determined by the 2020 CKD-EPI equation recommended by the National Kidney Foundation (A Unifying Approach to GFR Estimation: Recommendations of the NKF-ASK Task Force on Reassessing the Inclusion of Race in Diagnosing Kidney Disease, JASN 2020). The CKD-EPI equation should not be used for patients with unstable renal function and has not been validated in children and those over 70. Current interpretive data was last reviewed 2021. Blood 08/13/2024 3:33 AM SURVEILLANCE OFFICER 08/13/2024 3:57 AM SURVEILLANCE OFFICER us Matthieu Bautista MD LAB BLOOD ORDERABLES Final Resu lt [facility] ([place]) 1 [facility] Department [place] [address] * (ABNORMAL) Differential, auto (08/13/2024 3:33 AM SURVEILLANCE OFFICER) Neutrophil abs 5.7 1.5 - 6.5 K/cumm Imm gran abs 0.1 0.0 - 0.1 K/cumm [facility] ([place]) Lymphocyte abs 2.2 0.8 - 3.3 K/cumm [facility] ([place]) Monocyte abs 1.7(H) 0.2 - 0.8 K/cumm [facility] ([place]) Eosinophil abs 0.2 0.0 - 0.5 K/cumm [facility] ([place]) Basophil abs 0.1 0.0 - 0.1 K/cumm [facility] ([place]) Neutrophil pct 56.4 % [facility] ([place]) Comment: Interpretive Data Percent cell count reference ranges are not reported, since discordance with absolute values may lead to misinterpretation of CBC data. Current Interpretive Data was last revised on 2017. Imm gran pct 1.3 % [facility] ([place]) Comment: Interpretive Data Percent cell count reference ranges are not reported, since discordance with absolute values may lead to misinterpretation of CBC data. Current Interpretive Data was last revised on 2017. Lymphocyte pct 21.6 % [facility] ([place]) Comment: Interpretive Data Percent cell count reference ranges are not reported, since discordance with absolute values may lead to misinterpretation of CBC data. Current Interpretive Data was last revised on 2017. Monocyte pct 17.3 % [facility] ([place]) Comment: Interpretive Data Percent cell count reference ranges are not reported, since discordance with absolute values may lead to misinterpretation of CBC data. Current Interpretive Data was last revised on 2017. Eosinophil pct 2.2 % [facility] ([place]) Comment: Interpretive Data Percent cell count reference ranges are not reported, since discordance with absolute values may lead to misinterpretation of CBC data. Current Interpretive Data was last revised on 2017. Basophil pct 1.2 % [facility] ([place]) Comment: Interpretive Data Percent cell count reference ranges are not reported, since discordance with absolute values may lead to misinterpretation of CBC data. Current Interpretive Data was last revised on 2017. Blood 08/13/2024 3:33 AM SURVEILLANCE OFFICER 08/13/2024 3:57 AM SURVEILLANCE OFFICER us Matthieu Bautista MD LAB BLOOD ORDERABLES Final Resu lt [facility] ([place]) 1 [facility] Department [place] [address] * (ABNORMAL) CBC with auto differential (08/13/2024 3:33 AM SURVEILLANCE OFFICER) WBC 10.0(H) 3.8 - 9.9 K/cumm Hgb 12.2(L) 13.0 - 17.5 g/dL [facility] ([place]) Hct 37.1(L) 38.9 - 50.3 % [facility] ([place]) Plt 152 150 - 400 K/cumm [facility] ([place]) MPV 9.9 9.1 - 12.3 fL [facility] ([place]) RBC 3.91(L) 4.30 - 5.80 M/cumm [facility] ([place]) MCV 94.9 81.3 - 96.4 fL [facility] ([place]) MCH 31.2 27.1 - 33.3 pg [facility] ([place]) MCHC 32.9 32.3 - 35.7 g/dL [facility] ([place]) RDW CV 13.2 11.1 - 14.9 % [facility] ([place]) RDW SD 45.7 35.7 - 48.1 fL [facility] ([place]) NRBC abs 0.00 0.00 - 0.01 K/cumm [facility] ([place]) Blood 08/13/2024 3:33 AM SURVEILLANCE OFFICER 08/13/2024 3:57 AM SURVEILLANCE OFFICER us Matthieu Bautista MD LAB BLOOD ORDERABLES Final Resu lt [facility] ([place]) 1 [facility] [place] [address] * Magnesium (08/13/2024 3:33 AM SURVEILLANCE OFFICER) Magnesium 1.9 1.4 - 2.5 mg/dL Blood 08/13/2024 3:33 AM SURVEILLANCE OFFICER 08/13/2024 3:57 AM SURVEILLANCE OFFICER Matthieu Bautista MD LAB BLOOD ORDERABLES Final Resu lt [facility] ([place]) 1 [facility] [place] [address] * Bilirubin, direct (08/13/2024 3:33 AM SURVEILLANCE OFFICER) Bilirubin, direct 0.3 0.1 - 0.3 mg/dL Blood 08/13/2024 3:33 AM SURVEILLANCE OFFICER 08/13/2024 3:57 AM SURVEILLANCE OFFICER us Matthieu Bautista MD LAB BLOOD ORDERABLES Final Resu lt [facility] ([place]) 1 [facility] Department [place] [address] * (ABNORMAL) Comprehensive metabolic panel (08/13/2024 3:33 AM SURVEILLANCE OFFICER) Sodium 135 135 - 145 mmol/L Potassium, pl 3.8 3.3 - 4.9 mmol/L [facility] ([place]) Chloride 102 97 - 110 mmol/L [facility] ([place]) CO2 19(L) 22 - 32 mmol/L [facility] ([place]) Anion gap 14 2 - 15 mmol/L [facility] ([place]) BUN 10 6 - 25 mg/dL [facility] ([place]) Creatinine 0.62(L) 0.80 - 1.30 mg/dL [facility] ([place]) Glucose 99 70 - 199 mg/dL [facility] ([place]) Comment: Interpretive Data Fasting glucose >/= 126 mg/dl is diagnostic for diabetes. Fasting is defined as no caloric intake for at least 8 hours. Fasting glucose between 100 mg/dl to 125 mg/dl is diagnostic of prediabetes. In a patient with classic symptoms of hyperglycemia or hyperglycemic crisis, a random glucose >/= 200 mg/dl is diagnostic for diabetes. In the absence of unequivocal hyperglycemia, results should be confirmed by repeat testing. The classification and Diagnosis of Diabetes Diabetes Care 2021; 46: S19-S40. Current interpretive data was last revised 2022. Calcium 8.9 8.5 - 10.3 mg/dL [facility] ([place]) Bilirubin, total 0.7 0.1 - 1.2 mg/dL [facility] ([place]) Protein, pl 7.1 6.5 - 8.5 g/dL [facility] ([place]) Albumin 3.7 3.5 - 5.0 g/dL [facility] ([place]) Alk phos 105 40 - 130 Units/L [facility] ([place]) ALT 28 7 - 55 Units/L [facility] ([place]) AST 33 10 - 50 Units/L [facility] ([place]) Blood 08/13/2024 3:33 AM SURVEILLANCE OFFICER 08/13/2024 3:57 AM SURVEILLANCE OFFICER us Matthieu Bautista MD LAB BLOOD ORDERABLES Final Resu lt Performing Organization Address City/[facility]/ZIP Co de Phone Number [facility]ANN LR ([place]) [address] [place] [address] [place] [address] * eGFR (08/12/2024 10:35 AM SURVEILLANCE OFFICER) eGFR >90 >=60 mL/min/1. 73 m2 Comment: Interpretive Data Reference Interval Normal >/= 90 mL/min/1.73m2 Mildly decreased* 60 - 89 mL/min/1.73m2 Mildly to moderately decreased 45 - 59 mL/min/1.73m2 Moderately to severely decreased 30 - 44 mL/min/1.73m2 Severely decreased 15 - 29 mL/min/1.73m2 Kidney Failure < 15 mL/min/1.73m2 *Relative to young adult level Estimated glomerular filtration rate is determined by the 2020 CKD-EPI equation recommended by the National Kidney Foundation (A Unifying Approach to GFR Estimation: Recommendations of the NKF-ASK Task Force on Reassessing the Inclusion of Race in Diagnosing Kidney Disease, JASN 2020). The CKD-EPI equation should not be used for patients with unstable renal function and has not been validated in children and those over 70. Current interpretive data was last reviewed 2021. Blood 08/12/2024 10:3 5 AM SURVEILLANCE OFFICER 08/12/2024 10:54 AM SURVEILLANCE OFFICER us Luis Angel Rick MD LAB BLOOD ORDERABLES Final Re sult [place] [place]) 1 [facility] [place] [address] * Magnesium (08/12/2024 10:35 AM SURVEILLANCE OFFICER) Magnesium 1.7 1.4 - 2.5 mg/dL Blood 08/12/2024 10:3 5 AM SURVEILLANCE OFFICER 08/12/2024 10:54 AM SURVEILLANCE OFFICER us Luis Angel Rick MD LAB BLOOD ORDERABLES Final Re sult Performing Organization Address City/[facility]/ZIP Co de Phone Number [facility] LR ([place]) 1 [facility] [place] [address] * Bilirubin, direct (08/12/2024 10:35 AM SURVEILLANCE OFFICER) Bilirubin, direct 0.3 0.1 - 0.3 mg/dL Blood 08/12/2024 10:3 5 AM SURVEILLANCE OFFICER 08/12/2024 10:54 AM SURVEILLANCE OFFICER us Luis Angel Rick MD LAB BLOOD ORDERABLES Final Re sult Performing Organization Address [facility] Co de Phone Number L[facility]ANN LR ([place]) 1 [place] [address] * (ABNORMAL) Comprehensive metabolic panel (08/12/2024 10:35 AM SURVEILLANCE OFFICER) Sodium 134(L) 135 - 145 mmol/L Potassium, pl 3.8 3.3 - 4.9 mmol/L [facility] ([place]) Chloride 101 97 - 110 mmol/L [facility] ([place]) CO2 22 22 - 32 mmol/L [facility] ([place]) Anion gap 11 2 - 15 mmol/L [facility] ([place]) BUN 14 6 - 25 mg/dL [facility] ([place]) Creatinine 0.71(L) 0.80 - 1.30 mg/dL [facility] ([place]) Glucose 96 70 - 199 mg/dL [facility] ([place]) Comment: Interpretive Data Fasting glucose >/= 126 mg/dl is diagnostic for diabetes. Fasting is defined as no caloric intake for at least 8 hours. Fasting glucose between 100 mg/dl to 125 mg/dl is diagnostic of prediabetes. In a patient with classic symptoms of hyperglycemia or hyperglycemic crisis, a random glucose >/= 200 mg/dl is diagnostic for diabetes. In the absence of unequivocal hyperglycemia, results should be confirmed by repeat testing. The classification and Diagnosis of Diabetes Diabetes Care 202; 46: S19-S40. Current interpretive data was last revised 2022. Calcium 8.8 8.5 - 10.3 mg/dL [facility] ([place]) Bilirubin, total 0.7 0.1 - 1.2 mg/dL [facility] ([place]) Protein, pl 7.5 6.5 - 8.5 g/dL [facility] ([place]) Albumin 3.9 3.5 - 5.0 g/dL [facility] ([place]) Alk phos 93 40 - 130 Units/L [facility] ([place]) ALT 35 7 - 55 Units/L [facility] ([place]) AST 34 10 - 50 Units/L [facility] ([place]) Blood 08/12/2024 10:3 5 AM SURVEILLANCE OFFICER 08/12/2024 10:54 AM SURVEILLANCE OFFICER Luis Angel Rick MD LAB BLOOD ORDERABLES Final Re sult [facility] ([place]) 1 [facility] Department [place] [address] * (ABNORMAL) Differential, auto (08/12/2024 10:34 AM SURVEILLANCE OFFICER) Neutrophil abs 4.7 1.5 - 6.5 K/cumm Imm gran abs 0.1 0.0 - 0.1 K/cumm [facility] ([place]) Lymphocyte abs 1.8 0.8 - 3.3 K/cumm [facility] ([place]) Monocyte abs 1.9(H) 0.2 - 0.8 K/cumm [facility] ([place]) Eosinophil abs 0.1 0.0 - 0.5 K/cumm [facility] ([place]) Basophil abs 0.1 0.0 - 0.1 K/cumm [facility] ([place]) Neutrophil pct 54.0 % [facility] ([place]) Comment: Interpretive Data Percent cell count reference ranges are not reported, since discordance with absolute values may lead to misinterpretation of CBC data. Current Interpretive Data was last revised on 2017. Imm gran pct 1.0 % [facility] ([place]) Comment: Interpretive Data Percent cell count reference ranges are not reported, since discordance with absolute values may lead to misinterpretation of CBC data. Current Interpretive Data was last revised on 2017. Lymphocyte pct 20.5 % [facility] ([place]) Comment: Interpretive Data Percent cell count reference ranges are not reported, since discordance with absolute values may lead to misinterpretation of CBC data. Current Interpretive Data was last revised on 2017. Monocyte pct 22.2 % [facility] ([place]) Comment: Interpretive Data Percent cell count reference ranges are not reported, since discordance with absolute values may lead to misinterpretation of CBC data. Current Interpretive Data was last revised on 2017. Eosinophil pct 1.5 % [facility] ([place]) Comment: Interpretive Data Percent cell count reference ranges are not reported, since discordance with absolute values may lead to misinterpretation of CBC data. Current Interpretive Data was last revised on 2017. Basophil pct 0.8 % [facility] ([place]) Comment: Interpretive Data Percent cell count reference ranges are not reported, since discordance with absolute values may lead to misinterpretation of CBC data. Current Interpretive Data was last revised on 2017. Blood 08/12/2024 10:3 4 AM SURVEILLANCE OFFICER 08/12/2024 10:38 AM SURVEILLANCE OFFICER us Matthieu Bautista MD LAB BLOOD ORDERABLES Final Resu lt [facility] ([place]) 1 [facility] [place] [address] * (ABNORMAL) CBC with auto differential (08/12/2024 10:34 AM SURVEILLANCE OFFICER) WBC 8.7 3.8 - 9.9 K/cumm Hgb 12.5(L) 13.0 - 17.5 g/dL [facility] ([place]) Hct 37.1(L) 38.9 - 50.3 % [facility] ([place]) Plt 141(L) 150 - 400 K/cumm [facility] ([place]) MPV 9.7 9.1 - 12.3 fL [facility] ([place]) RBC 3.99(L) 4.30 - 5.80 M/cumm [facility] ([place]) MCV 93.0 81.3 - 96.4 fL [facility] ([place]) MCH 31.3 27.1 - 33.3 pg [facility] ([place]) MCHC 33.7 32.3 - 35.7 g/dL [facility] ([place]) RDW CV 13.3 11.1 - 14.9 % [facility] ([place]) RDW SD 45.5 35.7 - 48.1 fL [facility] ([place]) NRBC abs 0.00 0.00 - 0.01 K/cumm [facility] ([place]) Blood 08/12/2024 10:3 4 AM SURVEILLANCE OFFICER 08/12/2024 10:38 AM SURVEILLANCE OFFICER Matthieu Bautista MD LAB BLOOD ORDERABLES Final Resu lt [facility] ([place]) 1 [facility] Department of Laboratories [place] [id number] * Infection Prevention MRSA Only (Staphylococcus aureus) PCR Nasal (08/12/2024 9:50 AM SURVEILLANCE OFFICER) PCR Scrn, Methicillin resistant Staphylococcus aureus (MRSA) Not Detected Not Detected Comment: Interpretive Data Testing performed using Nucleic Acid Amplification with the [employer] Xpert MRSA NxG Assay. This assay detects target DNA from mecA, mecC and the SCCmec insertion site of Staphylococcus aureus using Real-Time PCR and has been cleared by the FDA. Performance characteristics have been verified by the [facility]. Current Interpretive Data was last revised on 2022 Nasal 08/12/2024 9:50 AM SURVEILLANCE OFFICER 08/12/2024 10:14 AM SURVEILLANCE OFFICER Latrell Keith MD LAB MICROBIOLOGY - GENERAL ORDERABLES Final Result [place] [place]) 1 [facility] [place] [address] * Lactate (08/12/2024 9:17 AM SURVEILLANCE OFFICER) Lactate 1.0 0.7 - 2.0 mmol/L Blood 08/12/2024 9:17 AM SURVEILLANCE OFFICER 08/12/2024 9:46 AM SURVEILLANCE OFFICER Luis Angel Rick MD LAB BLOOD ORDERABLES Final Re sult [facility] ([place]) 1 [facility] [place] [address] * Lactate (08/11/2024 3:56 PM SURVEILLANCE OFFICER) Lactate 1.1 0.7 - 2.0 mmol/L Blood 08/11/2024 3:56 PM SURVEILLANCE OFFICER 08/11/2024 4:00 PM SURVEILLANCE OFFICER Luis Angel Rick MD LAB BLOOD ORDERABLES Final Re sult Performing Organization Address City/[facility]/ZIP Co de Phone Number LOUANN Scott[place]TOON) 1 [facility] [place] [address] * eGFR (08/11/2024 3:56 PM SURVEILLANCE OFFICER) eGFR 83 >=60 mL/min/1. 73 m2 Comment: Interpretive Data Reference Interval Normal >/= 90 mL/min/1.73m2 Mildly decreased* 60 - 89 mL/min/1.73m2 Mildly to moderately decreased 45 - 59 mL/min/1.73m2 Moderately to severely decreased 30 - 44 mL/min/1.73m2 Severely decreased 15 - 29 mL/min/1.73m2 Kidney Failure < 15 mL/min/1.73m2 *Relative to young adult level Estimated glomerular filtration rate is determined by the 2020 CKD-EPI equation recommended by the National Kidney Foundation (A Unifying Approach to GFR Estimation: Recommendations of the NKF-ASK Task Force on Reassessing the Inclusion of Race in Diagnosing Kidney Disease, JASN 2020). The CKD-EPI equation should not be used for patients with unstable renal function and has not been validated in children and those over 70. Current interpretive data was last reviewed 2021. Blood 08/11/2024 3:56 PM SURVEILLANCE OFFICER 08/11/2024 4:00 PM SURVEILLANCE OFFICER Luis Angel Rick MD LAB BLOOD ORDERABLES Final Re sult [facility] ([place]) 1 [facility] [place] [address] * (ABNORMAL) Differential, auto (08/11/2024 3:56 PM SURVEILLANCE OFFICER) Neutrophil abs 2.9 1.5 - 6.5 K/cumm Imm gran abs 0.0 0.0 - 0.1 K/cumm [facility] ([place]) Lymphocyte abs 1.7 0.8 - 3.3 K/cumm [facility] ([place]) Monocyte abs 1.5(H) 0.2 - 0.8 K/cumm [facility] ([place]) Eosinophil abs 0.1 0.0 - 0.5 K/cumm [facility] ([place]) Basophil abs 0.0 0.0 - 0.1 K/cumm [facility] ([place]) Neutrophil pct 46.6 % [facility] ([place]) Comment: Interpretive Data Percent cell count reference ranges are not reported, since discordance with absolute values may lead to misinterpretation of CBC data. Current Interpretive Data was last revised on 2017. Imm gran pct 0.6 % [facility] ([place]) Comment: Interpretive Data Percent cell count reference ranges are not reported, since discordance with absolute values may lead to misinterpretation of CBC data. Current Interpretive Data was last revised on 2017. Lymphocyte pct 26.5 % [facility] ([place]) Comment: Interpretive Data Percent cell count reference ranges are not reported, since discordance with absolute values may lead to misinterpretation of CBC data. Current Interpretive Data was last revised on 2017. Monocyte pct 23.5 % [facility] ([place]) Comment: Interpretive Data Percent cell count reference ranges are not reported, since discordance with absolute values may lead to misinterpretation of CBC data. Current Interpretive Data was last revised on 2017. Eosinophil pct 2.2 % [facility] ([place]) Comment: Interpretive Data Percent cell count reference ranges are not reported, since discordance with absolute values may lead to misinterpretation of CBC data. Current Interpretive Data was last revised on 2017. Basophil pct 0.6 % [facility] ([place]) Comment: Interpretive Data Percent cell count reference ranges are not reported, since discordance with absolute values may lead to misinterpretation of CBC data. Current Interpretive Data was last revised on 2017. Blood 08/11/2024 3:56 PM SURVEILLANCE OFFICER 08/11/2024 4:00 PM SURVEILLANCE OFFICER Luis Angel Rick MD LAB BLOOD ORDERABLES Final Re sult [facility] ([place] 1 [facility] Department [place] [address] * (ABNORMAL) CBC with auto differential (08/11/2024 3:56 PM SURVEILLANCE OFFICER) WBC 6.3 3.8 - 9.9 K/cumm Hgb 12.5(L) 13.0 - 17.5 g/dL [facility] ([place]) Hct 38.3(L) 38.9 - 50.3 % [facility] ([place]) Plt 149(L) 150 - 400 K/cumm [facility] ([place]) MPV 10.2 9.1 - 12.3 fL [facility] ([place]) RBC 4.00(L) 4.30 - 5.80 M/cumm [facility] ([place]) MCV 95.8 81.3 - 96.4 fL [facility] ([place]) MCH 31.3 27.1 - 33.3 pg [facility] ([place]) MCHC 32.6 32.3 - 35.7 g/dL [facility] ([place]) RDW CV 13.8 11.1 - 14.9 % [facility] ([place]) RDW SD 48.8(H) 35.7 - 48.1 fL [facility] ([place]) NRBC abs 0.00 0.00 - 0.01 K/cumm [facility] ([place]) Blood 08/11/2024 3:56 PM SURVEILLANCE OFFICER 08/11/2024 4:00 PM SURVEILLANCE OFFICER Luis Angel Rick MD LAB BLOOD ORDERABLES Final Re sult [facility] ([place]) 1 [facility] Department [place] [address] * Blood culture Blood (08/11/2024 3:56 PM SURVEILLANCE OFFICER) Report Final Report: No growth Comment:Testing performed by : [facility], [address] [place]., [address] Blood 08/11/2024 3:56 PM SURVEILLANCE OFFICER 08/11/2024 6:37 PM SURVEILLANCE OFFICER Narrative [facility] ([place]) - 08/16/2024 7:01 AM SURVEILLANCE OFFICER From a different site than #1. Collection->Peripheral 1. Blood cultures are incubated for 4 days on a continuously monitored blood culture system. The first report of a negative culture is issued within 24 hours of receipt of the specimen in the laboratory. 2. Positive culture results are reported as soon as they are detected. 3. The most important factor for detection of microbes in the setting of bloodstream infection is the volume of blood submitted for culture. Failure to collect an optimal blood volume can result in false negative blood cultures. 4. For pediatric patients, the recommended blood volume to collect follows a weight based strategy. See the electronic test catalog for collection instructions. 5. For positive blood cultures, a rapid molecular test may be performed for organism identification using the lamont ePlex blood culture identification panel for gram positive (BCID-GP) and gram negative (BCID-GN) organisms. This nucleic acid amplification test detects microbial DNA in positive blood culture broth. This assay has been cleared by the [place] Food and Drug Administration and its performance characteristics have been verified by the [facility]. For questions about this culture, contact the Microbiology Laboratory at [phone]. Interpretive data was last revised on 24. us Luis Angel Rick MD LAB MICROBIOLOGY - GENERAL OR DERABLES Final Result LOUANN BE LI[place]) 1 [facility] Department [place] [address] * Blood culture Blood (08/11/2024 3:56 PM SURVEILLANCE OFFICER) Report Final Report: No growth Comment:Testing performed by : [facility], [address] [place]., [address] Blood 08/11/2024 3:56 PM SURVEILLANCE OFFICER 08/11/2024 6:37 PM SURVEILLANCE OFFICER Narrative [facility]ANN BE ([place]) - 08/16/2024 7:01 AM SURVEILLANCE OFFICER Collection->Peripheral 1. Blood cultures are incubated for 4 days on a continuously monitored blood culture system. The first report of a negative culture is issued within 24 hours of receipt of the specimen in the laboratory. 2. Positive culture results are reported as soon as they are detected. 3. The most important factor for detection of microbes in the setting of bloodstream infection is the volume of blood submitted for culture. Failure to collect an optimal blood volume can result in false negative blood cultures. 4. For pediatric patients, the recommended blood volume to collect follows a weight based strategy. See the electronic test catalog for collection instructions. 5. For positive blood cultures, a rapid molecular test may be performed for organism identification using the lamont ePlex blood culture identification panel for gram positive (BCID-GP) and gram negative (BCID-GN) organisms. This nucleic acid amplification test detects microbial DNA in positive blood culture broth. This assay has been cleared by the [place] Food and Drug Administration and its performance characteristics have been verified by the [facility]. For questions about this culture, contact the Microbiology Laboratory at [phone]. Interpretive data was last revised on 24. us Luis Angel Rick MD LAB MICROBIOLOGY - GENERAL OR DERABLES Final Result [facility] ([place] 1 [facility] Department [place] [address] * (ABNORMAL) Comprehensive metabolic panel (08/11/2024 3:56 PM SURVEILLANCE OFFICER) Sodium 134(L) 135 - 145 mmol/L Potassium, pl 4.2 3.3 - 4.9 mmol/L [facility] ([place]) Chloride 94(L) 97 - 110 mmol/L [facility] ([place]) CO2 25 22 - 32 mmol/L [facility] ([place]) Anion gap 15 2 - 15 mmol/L [facility] ([place]) BUN 27(H) 6 - 25 mg/dL [facility] ([place]) Creatinine 1.09 0.80 - 1.30 mg/dL [facility] ([place]) Glucose 101 70 - 199 mg/dL [facility] ([place]) Comment: Interpretive Data Fasting glucose >/= 126 mg/dl is diagnostic for diabetes. Fasting is defined as no caloric intake for at least 8 hours. Fasting glucose between 100 mg/dl to 125 mg/dl is diagnostic of prediabetes. In a patient with classic symptoms of hyperglycemia or hyperglycemic crisis, a random glucose >/= 200 mg/dl is diagnostic for diabetes. In the absence of unequivocal hyperglycemia, results should be confirmed by repeat testing. The classification and Diagnosis of Diabetes Diabetes Care 202; 46: S19-S40. Current interpretive data was last revised 2022. Calcium 8.9 8.5 - 10.3 mg/dL [facility] ([place]) Bilirubin, total 0.6 0.1 - 1.2 mg/dL [facility] ([place]) Protein, pl 7.8 6.5 - 8.5 g/dL [facility] ([place]) Albumin 4.1 3.5 - 5.0 g/dL [facility] ([place]) Alk phos 105 40 - 130 Units/L [facility] ([place]) ALT 46 7 - 55 Units/L [facility] ([place]) AST 49 10 - 50 Units/L [facility] ([place]) Comment: Hemolysis present. Results may be affected. Slightly Hemolyzed Specimen Blood 08/11/2024 3:56 PM SURVEILLANCE OFFICER 08/11/2024 4:00 PM SURVEILLANCE OFFICER us Luis Angel Rick MD LAB BLOOD ORDERABLES Final Re sult [facility] ([place]) 1 [facility] Department [place] [address] * (ABNORMAL) Differential, auto (08/11/2024 10:12 AM SURVEILLANCE OFFICER) Neutrophil abs 2.8 1.5 - 6.5 K/cumm Imm gran abs 0.0 0.0 - 0.1 K/cumm [facility] ([place]) Lymphocyte abs 1.2 0.8 - 3.3 K/cumm [facility] ([place]) Monocyte abs 1.4(H) 0.2 - 0.8 K/cumm [facility] ([place]) Eosinophil abs 0.1 0.0 - 0.5 K/cumm [facility] ([place]) Basophil abs 0.1 0.0 - 0.1 K/cumm [facility] ([place]) Neutrophil pct 49.9 % [facility] ([place]) Comment: Interpretive Data Percent cell count reference ranges are not reported, since discordance with absolute values may lead to misinterpretation of CBC data. Current Interpretive Data was last revised on 2017. Imm gran pct 0.7 % [facility] ([place]) Comment: Interpretive Data Percent cell count reference ranges are not reported, since discordance with absolute values may lead to misinterpretation of CBC data. Current Interpretive Data was last revised on 2017. Lymphocyte pct 21.5 % [facility] ([place]) Comment: Interpretive Data Percent cell count reference ranges are not reported, since discordance with absolute values may lead to misinterpretation of CBC data. Current Interpretive Data was last revised on 2017. Monocyte pct 25.1 % [facility] ([place]) Comment: Interpretive Data Percent cell count reference ranges are not reported, since discordance with absolute values may lead to misinterpretation of CBC data. Current Interpretive Data was last revised on 2017. Eosinophil pct 1.5 % [facility] ([place]) Comment: Interpretive Data Percent cell count reference ranges are not reported, since discordance with absolute values may lead to misinterpretation of CBC data. Current Interpretive Data was last revised on 2017. Basophil pct 1.3 % [facility] ([place]) Comment: Interpretive Data Percent cell count reference ranges are not reported, since discordance with absolute values may lead to misinterpretation of CBC data. Current Interpretive Data was last revised on 2017. Blood 08/11/2024 10:1 2 AM SURVEILLANCE OFFICER 08/11/2024 10:19 AM SURVEILLANCE OFFICER us Matthieu Bautista MD LAB BLOOD ORDERABLES Final Resu lt [facility] ([place]) 1 [facility] [place] [address] * (ABNORMAL) CBC with auto differential (08/11/2024 10:12 AM SURVEILLANCE OFFICER) WBC 5.5 3.8 - 9.9 K/cumm Hgb 13.0 13.0 - 17.5 g/dL [facility] ([place]) Hct 40.7 38.9 - 50.3 % [facility] ([place]) Plt 159 150 - 400 K/cumm [facility] ([place]) MPV 10.0 9.1 - 12.3 fL [facility] ([place]) RBC 4.19(L) 4.30 - 5.80 M/cumm [facility] ([place]) MCV 97.1(H) 81.3 - 96.4 fL [facility] ([place]) MCH 31.0 27.1 - 33.3 pg [facility] ([place]) MCHC 31.9(L) 32.3 - 35.7 g/dL [facility] ([place]) RDW CV 13.8 11.1 - 14.9 % [facility] ([place]) RDW SD 49.1(H) 35.7 - 48.1 fL [facility] ([place]) NRBC abs 0.00 0.00 - 0.01 K/cumm [facility] ([place]) Blood 08/11/2024 10:1 2 AM SURVEILLANCE OFFICER 08/11/2024 10:19 AM SURVEILLANCE OFFICER us Matthieu Bautista MD LAB BLOOD ORDERABLES Final Resu lt [facility] ([place]) 1 [facility] [place] [address] * CT Abdomen Pelvis W Contrast (08/11/2024 7:55 AM SURVEILLANCE OFFICER) Anatomical Region Laterality Modality Body N/A Computed Tomogra phy 08/11/2024 8:27 AM SURVEILLANCE OFFICER Narrative 08/11/2024 8:59 AM SURVEILLANCE OFFICER EXAM DESCRIPTION: CT ABDOMEN PELVIS W CONTRAST REASON FOR STUDY: Bowel obstruction suspected F/u from recent xray, vomiting and complaining of abdominal pain at the beginning of the shift. Abdomen was firm and distended TECHNIQUE: CT scan of the abdomen and pelvis performed with intravenous and without oral contrast using helical scanning technique with dynamic intravenous contrast injection. Reconstructed coronal and sagittal MPR images reviewed. All images stored on PACS. Automated exposure control was used as a dose optimization technique for this examination. CONTRAST TYPE/DOSE: 75mL of IOVERSOL 350 MG IODINE/ML INTRAVENOUS SYRINGE injected via intravenous COMPARISON: Chest CT 04/29/2024. FINDINGS: LOWER CHEST: Coronary artery calcifications are present. Mild bibasilar atelectasis is present. LIVER: Portal venous gas is present. No focal liver lesion is seen GALLBLADDER: Unremarkable BILE DUCTS: No intrahepatic or extrahepatic ductal dilatation. SPLEEN: Normal size. No focal lesions. PANCREAS: No identified cystic or solid masses. No significant calcifications. No adjacent inflammation or peripancreatic fluid collections. Pancreatic duct not dilated. ADRENALS: Low-attenuation 11 mm right adrenal nodule is unchanged in size and demonstrated Hounsfield unit less than [address] of 04/29/2024, compatible with an adenoma. KIDNEYS/URINARY TRACT: No suspicious masses. No hydroureteronephrosis. No radiopaque urolithiasis. Symmetrical enhancement of the kidneys. Urinary bladder is not well distended and grossly unremarkable. Prostate calcifications are present. GI: There is liquid stool within the colon, evidence of a diarrheal state.. There is mild dilatation of the ascending and transverse colon.. The appendix is normal. Visualized distal esophagus is unremarkable. There is an area of wall hypoenhancement in the gastric fundus, predominantly along the greater curvature of the stomach. (Image 38 of series 2) in this region there are areas of gas within and adjacent to the wall in the dependent portion of the stomach. This is suspicious for gastric ischemia. There is dilatation of the proximal small bowel which appears mildly thick walled without a definite discrete transition point. This is followed by an area of relative decompression in the mid small bowel, followed by long segment mild dilation of small bowel which is fluid-filled in the distal small bowel. No pneumatosis is seen. No definitive bowel wall hypoenhancement no definite free intraperitoneal gas is seen. There is gas within multiple veins adjacent to the stomach. PERITONEUM: No free intraperitoneal air or fluid is seen. No organized fluid collections. RETROPERITONEUM: No mass or adenopathy. REPRODUCTIVE: No significant abnormality. VASCULATURE: In the evaluated portions of the venous systems, no thrombosis is identified. Gas within multiple perigastric veins is noted.. There is overall mild atherosclerosis without aneurysm.. No obvious large vessel occlusion is seen within the limits of non angiographic technique. MUSCULOSKELETAL: Healed posterior left rib fracture. Mild degenerative disc disease. No aggressive bone lesion or acute fracture is seen.. Curvilinear densities in the femoral heads are compatible with sequela of osteonecrosis. No articular surface collapse is seen. OTHER: Small foci of subcutaneous gas and fat stranding in the left anterior subcutaneous fat of the abdominal wall is likely related to subcutaneous injection if there is an appropriate clinical history. IMPRESSION: Area of wall suspected hypoenhancement in the gastric fundus with suspected gastric pneumatosis and with perigastric and portal venous gas, suspicious for gastric ischemia. No large vessel occlusion is identified on non angiographic evaluation. Emergent surgical consultation is recommended. Multi segment small bowel dilatation. Colonic dilatation with liquid stool. A discrete transition point is not seen. No definitive small or large bowel hypoenhancement and no evidence of pneumatosis. This is favored to represent reactive ileus. Continued close imaging and clinical follow-up is recommended. 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 I discussed these findings and recommendation with MOON Giles at 8:51 a.m. on 08/10/2024. I discussed the findings and recommendation with Dr. Juvenal Rick at 855 a.m. on 08/10/2024. THIS IS AN ELECTRONICALLY VERIFIED FINAL REPORT 08/11/2024 8:59 AM - Electronically signed by Marcelino Fregoso M.D. MZ: MZ Report ID: [id number] Reading Location: [place] [address] Procedure Note Marcelino Fregoso MD - 08/11/2024 EXAM DESCRIPTION: CT ABDOMEN PELVIS W CONTRAST REASON FOR STUDY: Bowel obstruction suspected F/u from recent xray, vomiting and complaining of abdominal pain at the beginning of the shift. Abdomen was firm and distended TECHNIQUE: CT scan of the abdomen and pelvis performed with intravenousand without oral contrast using helical scanning technique with dynamic intravenous contrast injection. Reconstructed coronal and sagittal MPRimages reviewed. All images stored on PACS. Automated exposure control was usedas a dose optimization technique for this examination. CONTRAST TYPE/DOSE: 75mL of IOVERSOL 350 MG IODINE/ML INTRAVENOUSSYRINGE injected via intravenous COMPARISON: Chest CT 04/29/2024. FINDINGS: LOWER CHEST: Coronary artery calcifications are present. Mild bibasilar atelectasis is present. LIVER: Portal venous gas is present. No focal liver lesion is seen GALLBLADDER: Unremarkable BILE DUCTS: No intrahepatic or extrahepatic ductal dilatation. SPLEEN: Normal size. No focal lesions. PANCREAS: No identified cystic or solid masses. No significant calcifications. No adjacent inflammation or peripancreatic fluidcollections. Pancreatic duct not dilated. ADRENALS: Low-attenuation 11 mm right adrenal nodule is unchanged insize and demonstrated Hounsfield unit less than [address] of 04/29/2024,compatible with an adenoma. KIDNEYS/URINARY TRACT: No suspicious masses. No hydroureteronephrosis.No radiopaque urolithiasis. Symmetrical enhancement of the kidneys.Urinary bladder is not well distended and grossly unremarkable. Prostate calcifications are present. GI: There is liquid stool within the colon, evidence of a diarrhealstate.. There is mild dilatation of the ascending and transverse colon.. Theappendix is normal. Visualized distal esophagus is unremarkable. There is an areaof wall hypoenhancement in the gastric fundus, predominantly along thegreater curvature of the stomach. (Image 38 of series 2) in this region there are areas of gas within and adjacent to the wall in the dependent portion ofthe stomach. This is suspicious for gastric ischemia. There is dilatation of the proximal small bowel which appears mildly thick walled without a definite discrete transition point. This is followed byan area of relative decompression in the mid small bowel, followed by long segment mild dilation of small bowel which is fluid-filled in the distalsmall bowel. No pneumatosis is seen. No definitive bowel wall hypoenhancementno definite free intraperitoneal gas is seen. There is gas within multipleveins adjacent to the stomach. PERITONEUM: No free intraperitoneal air or fluid is seen. No organized fluid collections. RETROPERITONEUM: No mass or adenopathy. REPRODUCTIVE: No significant abnormality. VASCULATURE: In the evaluated portions of the venous systems, nothrombosis is identified. Gas within multiple perigastric veins is noted.. There is overall mild atherosclerosis without aneurysm.. No obvious large vessel occlusion is seen within the limits of non angiographic technique. MUSCULOSKELETAL: Healed posterior left rib fracture. Mild degenerativedisc disease. No aggressive bone lesion or acute fracture is seen..Curvilinear densities in the femoral heads are compatible with sequela ofosteonecrosis. No articular surface collapse is seen. OTHER: Small foci of subcutaneous gas and fat stranding in the leftanterior subcutaneous fat of the abdominal wall is likely related to subcutaneous injection if there is an appropriate clinical history. IMPRESSION: Area of wall suspected hypoenhancement in the gastric fundus withsuspected gastric pneumatosis and with perigastric and portal venous gas, suspiciousfor gastric ischemia. No large vessel occlusion is identified on nonangiographic evaluation. Emergent surgical consultation is recommended. Multi segment small bowel dilatation. Colonic dilatation with liquidstool. A discrete transition point is not seen. No definitive small or largebowel hypoenhancement and no evidence of pneumatosis. This is favored torepresent reactive ileus. Continued close imaging and clinical follow-up is recommended. Bilateral femoral head osteonecrosis without articular surfacecollapse.. I discussed these findings and recommendation with MOON Giles at 8:51 a.m. on 08/10/2024. I discussed the findings and recommendation with Dr. Juvenal Rick at 855 a.m. on 08/10/2024. THIS IS AN ELECTRONICALLY VERIFIED FINAL REPORT 08/11/2024 8:59 AM - Electronically signed by Marcelino Fregoso M.D. MZ: JAJA Report ID: [id number] Reading Location: [id number] us Matthieu Bautista MD IMG CT PROCEDURES Final Result * Lactate (08/11/2024 6:40 AM SURVEILLANCE OFFICER) Lactate 1.6 0.7 - 2.0 mmol/L Blood 08/11/2024 6:40 AM SURVEILLANCE OFFICER 08/11/2024 6:52 AM SURVEILLANCE OFFICER us Matthieu Bautista MD LAB BLOOD ORDERABLES Final Resu lt [facility] [place] 1 [facility] Department [place] [address] * eGFR (08/11/2024 6:40 AM SURVEILLANCE OFFICER) eGFR 69 >=60 mL/min/1. 73 m2 Comment: Interpretive Data Reference Interval Normal >/= 90 mL/min/1.73m2 Mildly decreased* 60 - 89 mL/min/1.73m2 Mildly to moderately decreased 45 - 59 mL/min/1.73m2 Moderately to severely decreased 30 - 44 mL/min/1.73m2 Severely decreased 15 - 29 mL/min/1.73m2 Kidney Failure < 15 mL/min/1.73m2 *Relative to young adult level Estimated glomerular filtration rate is determined by the 2020 CKD-EPI equation recommended by the National Kidney Foundation (A Unifying Approach to GFR Estimation: Recommendations of the NKF-ASK Task Force on Reassessing the Inclusion of Race in Diagnosing Kidney Disease, JASN 202). The CKD-EPI equation should not be used for patients with unstable renal function and has not been validated in children and those over 70. Current interpretive data was last reviewed 2021. Blood 08/11/2024 6:40 AM SURVEILLANCE OFFICER 08/11/2024 6:52 AM SURVEILLANCE OFFICER us Matthieu Bautista MD LAB BLOOD ORDERABLES Final Resu lt [facility] ([place]) 1 [facility] Department [place] [address] * (ABNORMAL) Differential, auto (08/11/2024 6:40 AM SURVEILLANCE OFFICER) Neutrophil abs 2.7 1.5 - 6.5 K/cumm Imm gran abs 0.0 0.0 - 0.1 K/cumm [facility] ([place]) Lymphocyte abs 1.5 0.8 - 3.3 K/cumm [facility] ([place]) Monocyte abs 1.0(H) 0.2 - 0.8 K/cumm [facility] Eosinophil abs 0.1 0.0 - 0.5 K/cumm [facility] ([place]) Basophil abs 0.0 0.0 - 0.1 K/cumm [facility] ([place]) Neutrophil pct 51.1 % [facility] ([place]) Comment: Interpretive Data Percent cell count reference ranges are not reported, since discordance with absolute values may lead to misinterpretation of CBC data. Current Interpretive Data was last revised on 2017. Imm gran pct 0.7 % [facility] ([place]) Comment: Interpretive Data Percent cell count reference ranges are not reported, since discordance with absolute values may lead to misinterpretation of CBC data. Current Interpretive Data was last revised on 2017. Lymphocyte pct 27.5 % [facility] ([place]) Comment: Interpretive Data Percent cell count reference ranges are not reported, since discordance with absolute values may lead to misinterpretation of CBC data. Current Interpretive Data was last revised on 2017. Monocyte pct 18.0 % [facility] ([place]) Comment: Interpretive Data Percent cell count reference ranges are not reported, since discordance with absolute values may lead to misinterpretation of CBC data. Current Interpretive Data was last revised on 2017. Eosinophil pct 2.1 % [facility] ([place]) Comment: Interpretive Data Percent cell count reference ranges are not reported, since discordance with absolute values may lead to misinterpretation of CBC data. Current Interpretive Data was last revised on 2017. Basophil pct 0.6 % [facility] ([place]) Comment: Interpretive Data Percent cell count reference ranges are not reported, since discordance with absolute values may lead to misinterpretation of CBC data. Current Interpretive Data was last revised on 2017. Blood 08/11/2024 6:40 AM SURVEILLANCE OFFICER 08/11/2024 6:52 AM SURVEILLANCE OFFICER us Matthieu Bautista MD LAB BLOOD ORDERABLES Final Resu lt [facility] ([place]) 1 [facility] Department [place] [address] * (ABNORMAL) CBC with auto differential (08/11/2024 6:40 AM SURVEILLANCE OFFICER) WBC 5.3 3.8 - 9.9 K/cumm Hgb 13.1 13.0 - 17.5 g/dL [facility] ([place]) Hct 39.3 38.9 - 50.3 % [facility] ([place]) Plt 147(L) 150 - 400 K/cumm [facility] ([place]) MPV 10.0 9.1 - 12.3 fL [facility] ([place]) RBC 4.14(L) 4.30 - 5.80 M/cumm [facility] ([place]) MCV 94.9 81.3 - 96.4 fL [facility] ([place]) MCH 31.6 27.1 - 33.3 pg [facility] ([place]) MCHC 33.3 32.3 - 35.7 g/dL [facility] ([place]) RDW CV 13.9 11.1 - 14.9 % [facility] ([place]) RDW SD 48.5(H) 35.7 - 48.1 fL [facility] ([place]) NRBC abs 0.02(H) 0.00 - 0.01 K/cumm [facility] ([place]) Blood 08/11/2024 6:40 AM SURVEILLANCE OFFICER 08/11/2024 6:52 AM SURVEILLANCE OFFICER Matthieu Bautista MD LAB BLOOD ORDERABLES Final Resu lt Performing Organization Address City/[facility]/ZIP Co de Phone Number [facility] ([place]) 1 [facility] [place] [address] * Magnesium (08/11/2024 6:40 AM SURVEILLANCE OFFICER) Magnesium 1.6 1.4 - 2.5 mg/dL Blood 08/11/2024 6:40 AM SURVEILLANCE OFFICER 08/11/2024 6:52 AM SURVEILLANCE OFFICER Matthieu Bautista MD LAB BLOOD ORDERABLES Final Resu lt Performing Organization Address [facility] Co de Phone Number [facility] ([place]) 1 [facility] [place] [address] * Bilirubin, direct (08/11/2024 6:40 AM SURVEILLANCE OFFICER) Bilirubin, direct 0.2 0.1 - 0.3 mg/dL Blood 08/11/2024 6:40 AM SURVEILLANCE OFFICER 08/11/2024 6:52 AM SURVEILLANCE OFFICER Matthieu Bautista MD LAB BLOOD ORDERABLES Final Resu lt Performing Organization Address [facility] Co de Phone Number [facility] ([place]) 1 [facility] [place] [address] * (ABNORMAL) Comprehensive metabolic panel (08/11/2024 6:40 AM SURVEILLANCE OFFICER) Sodium 133(L) 135 - 145 mmol/L Potassium, pl 4.4 3.3 - 4.9 mmol/L [facility] Chloride 93(L) 97 - 110 mmol/L [facility] ([place]) CO2 25 22 - 32 mmol/L [facility] ([place]) Anion gap 15 2 - 15 mmol/L [facility] ([place]) BUN 29(H) 6 - 25 mg/dL [facility] ([place]) Creatinine 1.26 0.80 - 1.30 mg/dL [facility] ([place]) Glucose 145 70 - 199 mg/dL [facility] ([place]) Comment: Interpretive Data Fasting glucose >/= 126 mg/dl is diagnostic for diabetes. Fasting is defined as no caloric intake for at least 8 hours. Fasting glucose between 100 mg/dl to 125 mg/dl is diagnostic of prediabetes. In a patient with classic symptoms of hyperglycemia or hyperglycemic crisis, a random glucose >/= 200 mg/dl is diagnostic for diabetes. In the absence of unequivocal hyperglycemia, results should be confirmed by repeat testing. The classification and Diagnosis of Diabetes Diabetes Care 202; 46: S19-S40. Current interpretive data was last revised 2022. Calcium 9.6 8.5 - 10.3 mg/dL [facility] ([place]) Bilirubin, total 0.5 0.1 - 1.2 mg/dL [facility] ([place]) Protein, pl 8.0 6.5 - 8.5 g/dL [facility] ([place]) Albumin 4.3 3.5 - 5.0 g/dL [facility] ([place]) Alk phos 113 40 - 130 Units/L [facility] ([place]) ALT 52 7 - 55 Units/L [facility] ([place]) AST 53(H) 10 - 50 Units/L [facility] ([place]) Blood 08/11/2024 6:40 AM SURVEILLANCE OFFICER 08/11/2024 6:52 AM SURVEILLANCE OFFICER us Matthieu Bautista MD LAB BLOOD ORDERABLES Final Resu lt [facility] ([place]) 1 [facility] [place] [address] * XR Abdomen 1 View AP (08/11/2024 12:56 AM SURVEILLANCE OFFICER) Anatomical Region Laterality Modality Body, Abdomen N/A Computed Radiogr aphy 08/11/2024 3:36 AM SURVEILLANCE OFFICER Narrative 08/11/2024 3:38 AM SURVEILLANCE OFFICER EXAM DESCRIPTION: XR ABDOMEN AP 1 VIEW REASON FOR STUDY: abdominal pain and distention with vomiting Mid Abdominal pain and Distention with Vomiting Tonight. No Hx of Abdomen Surgery. TECHNIQUE: Single radiographic view of the abdomen. COMPARISON: None. FINDINGS: BOWEL: There are multiple dilated gas-filled loops of small bowel seen through out the abdomen and pelvis measuring up to approximately 6 cm in diameter. There is air and stool seen within the colon. SOFT TISSUES: No significant calcifications. LINES/TUBES: None. BONES: No acute osseous abnormality. IMPRESSION: Bowel-gas pattern suspicious for small bowel obstruction. THIS IS AN ELECTRONICALLY VERIFIED FINAL REPORT 08/11/2024 3:38 AM - Electronically signed by Hannah Carrillo M.D. SN: SN Report ID: [id number] Reading Location: [id number] Procedure Note Hannah Carrillo MD - 08/11/2024 EXAM DESCRIPTION: XR ABDOMEN AP 1 VIEW REASON FOR STUDY: abdominal pain and distention with vomiting Mid Abdominal pain and Distention with Vomiting Tonight. No Hx ofAbdomen Surgery. TECHNIQUE: Single radiographic view of the abdomen. COMPARISON: None. FINDINGS: BOWEL: There are multiple dilated gas-filled loops of small bowel seen through out the abdomen and pelvis measuring up to approximately 6 cm in diameter. There is air and stool seen within the colon. SOFT TISSUES: No significant calcifications. LINES/TUBES: None. BONES: No acute osseous abnormality. IMPRESSION: Bowel-gas pattern suspicious for small bowel obstruction. THIS IS AN ELECTRONICALLY VERIFIED FINAL REPORT 08/11/2024 3:38 AM - Electronically signed by Hannah Carrillo M.D. SN: SN Report ID: [id number] Reading Location: [id number] Matthieu Bautista MD IMG XR PROCEDURES Final Result * (ABNORMAL) Differential, auto (08/10/2024 10:59 AM SURVEILLANCE OFFICER) Neutrophil abs 5.5 1.5 - 6.5 K/cumm Imm gran abs 0.1 0.0 - 0.1 K/cumm [facility] ([place]) Lymphocyte abs 1.7 0.8 - 3.3 K/cumm [facility] ([place]) Monocyte abs 1.2(H) 0.2 - 0.8 K/cumm [facility] ([place]) Eosinophil abs 0.1 0.0 - 0.5 K/cumm [facility] ([place]) Basophil abs 0.1 0.0 - 0.1 K/cumm [facility] ([place]) Neutrophil pct 63.6 % [facility] ([place]) Comment: Interpretive Data Percent cell count reference ranges are not reported, since discordance with absolute values may lead to misinterpretation of CBC data. Current Interpretive Data was last revised on 2017. Imm gran pct 1.2 % [facility] ([place]) Comment: Interpretive Data Percent cell count reference ranges are not reported, since discordance with absolute values may lead to misinterpretation of CBC data. Current Interpretive Data was last revised on 2017. Lymphocyte pct 19.7 % [facility] ([place]) Comment: Interpretive Data Percent cell count reference ranges are not reported, since discordance with absolute values may lead to misinterpretation of CBC data. Current Interpretive Data was last revised on 2017. Monocyte pct 13.4 % [facility] ([place]) Comment: Interpretive Data Percent cell count reference ranges are not reported, since discordance with absolute values may lead to misinterpretation of CBC data. Current Interpretive Data was last revised on 2017. Eosinophil pct 1.2 % [facility] ([place]) Comment: Interpretive Data Percent cell count reference ranges are not reported, since discordance with absolute values may lead to misinterpretation of CBC data. Current Interpretive Data was last revised on 2017. Basophil pct 0.9 % [facility] ([place]) Comment: Interpretive Data Percent cell count reference ranges are not reported, since discordance with absolute values may lead to misinterpretation of CBC data. Current Interpretive Data was last revised on 2017. Blood 08/10/2024 10:5 9 AM SURVEILLANCE OFFICER 08/10/2024 11:01 AM SURVEILLANCE OFFICER us Luis Angel Rick MD LAB BLOOD ORDERABLES Final Re sult [facility] ([place]) [address] [facility] [place] [address] * (ABNORMAL) CBC with auto differential (08/10/2024 10:59 AM SURVEILLANCE OFFICER) [facility] WBC 8.6 3.8 - 9.9 K/cumm Hgb 13.9 13.0 - 17.5 g/dL [facility] ([place]) Hct 41.9 38.9 - 50.3 % [facility] ([place]) Plt 151 150 - 400 K/cumm [facility] ([place]) MPV 10.1 9.1 - 12.3 fL [facility] ([place]) RBC 4.41 4.30 - 5.80 M/cumm [facility] ([place]) MCV 95.0 81.3 - 96.4 fL [facility] ([place]) MCH 31.5 27.1 - 33.3 pg [facility] ([place]) MCHC 33.2 32.3 - 35.7 g/dL [facility] ([place]) RDW CV 13.8 11.1 - 14.9 % [facility] ([place]) RDW SD 48.6(H) 35.7 - 48.1 fL [facility] ([place]) NRBC abs 0.00 0.00 - 0.01 K/cumm [facility] ([place]) Blood 08/10/2024 10:5 9 AM SURVEILLANCE OFFICER 08/10/2024 11:01 AM SURVEILLANCE OFFICER Narrative [facility] ([place]) - 08/10/2024 11:11 AM SURVEILLANCE OFFICER redraw us Luis Angel Rick MD LAB BLOOD ORDERABLES Final Re sult [facility] ([place]) 1 [facility] [place] [address] * eGFR (08/10/2024 8:29 AM SURVEILLANCE OFFICER) [facility] eGFR >90 >=60 mL/min/1. 73 m2 Comment: Interpretive Data Reference Interval Normal >/= 90 mL/min/1.73m2 Mildly decreased* 60 - 89 mL/min/1.73m2 Mildly to moderately decreased 45 - 59 mL/min/1.73m2 Moderately to severely decreased 30 - 44 mL/min/1.73m2 Severely decreased 15 - 29 mL/min/1.73m2 Kidney Failure < 15 mL/min/1.73m2 *Relative to young adult level Estimated glomerular filtration rate is determined by the 2020 CKD-EPI equation recommended by the National Kidney Foundation (A Unifying Approach to GFR Estimation: Recommendations of the NKF-ASK Task Force on Reassessing the Inclusion of Race in Diagnosing Kidney Disease, JASN 2020). The CKD-EPI equation should not be used for patients with unstable renal function and has not been validated in children and those over 70. Current interpretive data was last reviewed 2021. Blood 08/10/2024 8:29 AM SURVEILLANCE OFFICER 08/10/2024 9:10 AM SURVEILLANCE OFFICER Matthieu Bautista MD LAB BLOOD ORDERABLES Final Resu lt [facility] ([place]) 1 [facility] [place] [address] * Magnesium (08/10/2024 8:29 AM SURVEILLANCE OFFICER) Magnesium 1.7 1.4 - 2.5 mg/dL Blood 08/10/2024 8:29 AM SURVEILLANCE OFFICER 08/10/2024 9:10 AM SURVEILLANCE OFFICER us Matthieu Bautista MD LAB BLOOD ORDERABLES Final Resu lt [facility] ([place]) 1 [facility] [place] [address] * Bilirubin, direct (08/10/2024 8:29 AM SURVEILLANCE OFFICER) Bilirubin, direct 0.1 0.1 - 0.3 mg/dL Comment: Hemolysis present. Results may be affected. Slightly Hemolyzed Specimen Blood 08/10/2024 8:29 AM SURVEILLANCE OFFICER 08/10/2024 9:10 AM SURVEILLANCE OFFICER us Matthieu Bautista MD LAB BLOOD ORDERABLES Final Resu lt [facility] ([place]) 1 [facility] Department [place] [address] * (ABNORMAL) Comprehensive metabolic panel (08/10/2024 8:29 AM SURVEILLANCE OFFICER) Sodium 134(L) 135 - 145 mmol/L Potassium, pl 4.1 3.3 - 4.9 mmol/L [facility] ([place]) Chloride 96(L) 97 - 110 mmol/L [facility] ([place]) CO2 24 22 - 32 mmol/L [facility] ([place]) Anion gap 14 2 - 15 mmol/L [facility] ([place]) BUN 12 6 - 25 mg/dL [facility] ([place]) Creatinine 0.52(L) 0.80 - 1.30 mg/dL [facility] ([place]) Glucose 144 70 - 199 mg/dL [facility] ([place]) Comment: Interpretive Data Fasting glucose >/= 126 mg/dl is diagnostic for diabetes. Fasting is defined as no caloric intake for at least 8 hours. Fasting glucose between 100 mg/dl to 125 mg/dl is diagnostic of prediabetes. In a patient with classic symptoms of hyperglycemia or hyperglycemic crisis, a random glucose >/= 200 mg/dl is diagnostic for diabetes. In the absence of unequivocal hyperglycemia, results should be confirmed by repeat testing. The classification and Diagnosis of Diabetes Diabetes Care 2021; 46: S19-S40. Current interpretive data was last revised 2022. Calcium 9.6 8.5 - 10.3 mg/dL [facility] ([place]) Bilirubin, total 0.3 0.1 - 1.2 mg/dL [facility] ([place]) Protein, pl 7.5 6.5 - 8.5 g/dL [facility] ([place]) Albumin 4.1 3.5 - 5.0 g/dL [facility] ([place]) Alk phos 117 40 - 130 Units/L [facility] ([place]) ALT 56(H) 7 - 55 Units/L [facility] ([place]) AST 63(H) 10 - 50 Units/L [facility] ([place]) Comment: Hemolysis present. Results may be affected. Slightly Hemolyzed Specimen Blood 08/10/2024 8:29 AM SURVEILLANCE OFFICER 08/10/2024 9:10 AM SURVEILLANCE OFFICER Matthieu Bautista MD LAB BLOOD ORDERABLES Final Resu lt Performing Organization Address City/[facility]/ZIP Co de Phone Number [facility] ([place]) 1 [facility] [place] [address] * eGFR (08/09/2024 9:13 AM SURVEILLANCE OFFICER) eGFR >90 >=60 mL/min/1. 73 m2 Comment: Interpretive Data Reference Interval Normal >/= 90 mL/min/1.73m2 Mildly decreased* 60 - 89 mL/min/1.73m2 Mildly to moderately decreased 45 - 59 mL/min/1.73m2 Moderately to severely decreased 30 - 44 mL/min/1.73m2 Severely decreased 15 - 29 mL/min/1.73m2 Kidney Failure < 15 mL/min/1.73m2 *Relative to young adult level Estimated glomerular filtration rate is determined by the 2020 CKD-EPI equation recommended by the National Kidney Foundation (A Unifying Approach to GFR Estimation: Recommendations of the NKF-ASK Task Force on Reassessing the Inclusion of Race in Diagnosing Kidney Disease, JASN 2020). The CKD-EPI equation should not be used for patients with unstable renal function and has not been validated in children and those over 70. Current interpretive data was last reviewed 2021. Blood 08/09/2024 9:13 AM SURVEILLANCE OFFICER 08/09/2024 9:17 AM SURVEILLANCE OFFICER Matthieu Bautista MD LAB BLOOD ORDERABLES Final Resu lt Performing Organization Address City/[facility]/ZIP Co de Phone Number [facility] ([place]) 1 [facility] [place] [address] * Differential, auto (08/09/2024 9:13 AM SURVEILLANCE OFFICER) Neutrophil abs 3.3 1.5 - 6.5 K/cumm Imm gran abs 0.1 0.0 - 0.1 K/cumm [facility] ([place]) Lymphocyte abs 2.6 0.8 - 3.3 K/cumm [facility] ([place]) Monocyte abs 0.7 0.2 - 0.8 K/cumm [facility] ([place]) Eosinophil abs 0.2 0.0 - 0.5 K/cumm [facility] ([place]) Basophil abs 0.1 0.0 - 0.1 K/cumm [facility] ([place]) Neutrophil pct 47.0 % [facility] ([place]) Comment: Interpretive Data Percent cell count reference ranges are not reported, since discordance with absolute values may lead to misinterpretation of CBC data. Current Interpretive Data was last revised on 2017. Imm gran pct 1.3 % [facility] ([place]) Comment: Interpretive Data Percent cell count reference ranges are not reported, since discordance with absolute values may lead to misinterpretation of CBC data. Current Interpretive Data was last revised on 2017. Lymphocyte pct 37.0 % [facility] ([place]) Comment: Interpretive Data Percent cell count reference ranges are not reported, since discordance with absolute values may lead to misinterpretation of CBC data. Current Interpretive Data was last revised on 2017. Monocyte pct 10.4 % [facility] ([place]) Comment: Interpretive Data Percent cell count reference ranges are not reported, since discordance with absolute values may lead to misinterpretation of CBC data. Current Interpretive Data was last revised on 2017. Eosinophil pct 2.7 % [facility] ([place]) Comment: Interpretive Data Percent cell count reference ranges are not reported, since discordance with absolute values may lead to misinterpretation of CBC data. Current Interpretive Data was last revised on 2017. Basophil pct 1.6 % [facility] ([place]) Comment: Interpretive Data Percent cell count reference ranges are not reported, since discordance with absolute values may lead to misinterpretation of CBC data. Current Interpretive Data was last revised on 2017. Blood 08/09/2024 9:13 AM SURVEILLANCE OFFICER 08/09/2024 9:17 AM SURVEILLANCE OFFICER Matthieu Bautista MD LAB BLOOD ORDERABLES Final Resu lt [facility] ([place]) [address] [facility] [place] [address] * (ABNORMAL) CBC with auto differential (08/09/2024 9:13 AM SURVEILLANCE OFFICER) WBC 7.0 3.8 - 9.9 K/cumm Hgb 13.1 13.0 - 17.5 g/dL [facility] ([place]) Hct 39.3 38.9 - 50.3 % [facility] ([place]) Plt 133(L) 150 - 400 K/cumm [facility] ([place]) MPV 10.4 9.1 - 12.3 fL [facility] ([place]) RBC 4.17(L) 4.30 - 5.80 M/cumm [facility] ([place]) MCV 94.2 81.3 - 96.4 fL [facility] ([place]) MCH 31.4 27.1 - 33.3 pg [facility] ([place]) MCHC 33.3 32.3 - 35.7 g/dL [facility] ([place]) RDW CV 14.1 11.1 - 14.9 % [facility] ([place]) RDW SD 49.2(H) 35.7 - 48.1 fL [facility] ([place]) NRBC abs 0.00 0.00 - 0.01 K/cumm [facility] ([place]) Blood 08/09/2024 9:13 AM SURVEILLANCE OFFICER 08/09/2024 9:17 AM SURVEILLANCE OFFICER Matthieu Bautista MD LAB BLOOD ORDERABLES Final Resu lt [facility] ([place]) [address] [facility] [place] [address] * Magnesium (08/09/2024 9:13 AM SURVEILLANCE OFFICER) Pathologist [facility] Magnesium 1.6 1.4 - 2.5 mg/dL Blood 08/09/2024 9:13 AM SURVEILLANCE OFFICER 08/09/2024 9:17 AM SURVEILLANCE OFFICER Matthieu Bautista MD LAB BLOOD ORDERABLES Final Resu lt Performing Organization Address City/[facility]/ZIP Co de Phone Number [facility] ([place]) 1 [facility] [place] [address] * Bilirubin, direct (08/09/2024 9:13 AM SURVEILLANCE OFFICER) [facility] Bilirubin, direct 0.2 0.1 - 0.3 mg/dL Blood 08/09/2024 9:13 AM SURVEILLANCE OFFICER 08/09/2024 9:17 AM SURVEILLANCE OFFICER Matthieu Bautista MD LAB BLOOD ORDERABLES Final Resu lt Performing Organization Address [facility] Co de Phone Number [facility] ([place]) 1 [facility] [place] [address] * (ABNORMAL) Comprehensive metabolic panel (08/09/2024 9:13 AM SURVEILLANCE OFFICER) [facility] Sodium 134(L) 135 - 145 mmol/L Potassium, pl 4.0 3.3 - 4.9 mmol/L [facility] ([place]) Chloride 95(L) 97 - 110 mmol/L [facility] ([place]) CO2 24 22 - 32 mmol/L [facility] ([place]) Anion gap 15 2 - 15 mmol/L [facility] ([place]) BUN 12 6 - 25 mg/dL [facility] ([place]) Creatinine 0.66(L) 0.80 - 1.30 mg/dL [facility] ([place]) Glucose 148 70 - 199 mg/dL [facility] ([place]) Comment: Interpretive Data Fasting glucose >/= 126 mg/dl is diagnostic for diabetes. Fasting is defined as no caloric intake for at least 8 hours. Fasting glucose between 100 mg/dl to 125 mg/dl is diagnostic of prediabetes. In a patient with classic symptoms of hyperglycemia or hyperglycemic crisis, a random glucose >/= 200 mg/dl is diagnostic for diabetes. In the absence of unequivocal hyperglycemia, results should be confirmed by repeat testing. The classification and Diagnosis of Diabetes Diabetes Care 202; 46: S19-S40. Current interpretive data was last revised 2022. Calcium 9.5 8.5 - 10.3 mg/dL [facility] ([place]) Bilirubin, total 0.5 0.1 - 1.2 mg/dL [facility] ([place]) Protein, pl 7.8 6.5 - 8.5 g/dL [facility] ([place]) Albumin 4.2 3.5 - 5.0 g/dL [facility] ([place]) Alk phos 127 40 - 130 Units/L [facility] ([place]) ALT 60(H) 7 - 55 Units/L [facility] ([place]) AST 71(H) 10 - 50 Units/L [facility] ([place]) Blood 08/09/2024 9:13 AM SURVEILLANCE OFFICER 08/09/2024 9:17 AM SURVEILLANCE OFFICER us Matthieu Bautista MD LAB BLOOD ORDERABLES Final Resu lt [facility] ([place]) 1 [facility] Department [place] [address] * eGFR (08/08/2024 9:43 AM SURVEILLANCE OFFICER) eGFR >90 >=60 mL/min/1. 73 m2 Comment: Interpretive Data Reference Interval Normal >/= 90 mL/min/1.73m2 Mildly decreased* 60 - 89 mL/min/1.73m2 Mildly to moderately decreased 45 - 59 mL/min/1.73m2 Moderately to severely decreased 30 - 44 mL/min/1.73m2 Severely decreased 15 - 29 mL/min/1.73m2 Kidney Failure < 15 mL/min/1.73m2 *Relative to young adult level Estimated glomerular filtration rate is determined by the 2020 CKD-EPI equation recommended by the National Kidney Foundation (A Unifying Approach to GFR Estimation: Recommendations of the NKF-ASK Task Force on Reassessing the Inclusion of Race in Diagnosing Kidney Disease, ANCASN 2020). The CKD-EPI equation should not be used for patients with unstable renal function and has not been validated in children and those over 70. Current interpretive data was last reviewed 2021. Blood 08/08/2024 9:43 AM SURVEILLANCE OFFICER 08/08/2024 9:45 AM SURVEILLANCE OFFICER Matthieu Bautista MD LAB BLOOD ORDERABLES Final Resu lt [facility] ([place]) 1 [facility] [place] [address] * (ABNORMAL) CBC with auto differential (08/08/2024 9:43 AM SURVEILLANCE OFFICER) WBC 4.1 3.8 - 9.9 K/cumm Hgb 12.6(L) 13.0 - 17.5 g/dL [facility] ([place]) Hct 38.3(L) 38.9 - 50.3 % [facility] ([place]) Plt 91(L) 150 - 400 K/cumm [facility] ([place]) MPV 10.8 9.1 - 12.3 fL [facility] ([place]) RBC 4.05(L) 4.30 - 5.80 M/cumm [facility] ([place]) MCV 94.6 81.3 - 96.4 fL [facility] ([place]) MCH 31.1 27.1 - 33.3 pg [facility] ([place]) MCHC 32.9 32.3 - 35.7 g/dL [facility] ([place]) RDW CV 13.8 11.1 - 14.9 % [facility] ([place]) RDW SD 48.1 35.7 - 48.1 fL [facility] ([place]) NRBC abs 0.00 0.00 - 0.01 K/cumm [facility] ([place]) Blood 08/08/2024 9:43 AM SURVEILLANCE OFFICER 08/08/2024 9:45 AM SURVEILLANCE OFFICER Matthieu Bautista MD LAB BLOOD ORDERABLES Final Resu lt [facility] ([place]) 1 [facility] [place] [address] * (ABNORMAL) Manual Differential (08/08/2024 9:43 AM SURVEILLANCE OFFICER) Differential Manual Cells Counted 100 [facility] ([place]) Neutrophil abs 1.6 1.5 - 6.5 K/cumm [facility] ([place]) Lymphocyte abs 2.4 0.8 - 3.3 K/cumm [facility] ([place]) Monocyte abs 0.0(L) 0.2 - 0.8 K/cumm [facility] ([place]) Eosinophil abs 0.0 0.0 - 0.5 K/cumm [facility] ([place]) Basophil abs 0.0 0.0 - 0.1 K/cumm [facility] ([place]) Neutrophil pct 37.0 % [facility] ([place]) Comment: Interpretive Data Percent cell count reference ranges are not reported, since discordance with absolute values may lead to misinterpretation of CBC data. Current Interpretive Data was last revised on 2017. Lymphocyte pct 59.0 % [facility] ([place]) Comment: Interpretive Data Percent cell count reference ranges are not reported, since discordance with absolute values may lead to misinterpretation of CBC data. Current Interpretive Data was last revised on 2017. Monocyte pct 1.0 % [facility] ([place]) Comment: Interpretive Data Percent cell count reference ranges are not reported, since discordance with absolute values may lead to misinterpretation of CBC data. Current Interpretive Data was last revised on 2017. Eosinophil pct 1.0 % [facility] ([place]) Comment: Interpretive Data Percent cell count reference ranges are not reported, since discordance with absolute values may lead to misinterpretation of CBC data. Current Interpretive Data was last revised on 2017. Basophil pct 1.0 % [facility] ([place]) Comment: Interpretive Data Percent cell count reference ranges are not reported, since discordance with absolute values may lead to misinterpretation of CBC data. Current Interpretive Data was last revised on 2017. Band Neutrophil pct 1.0 0.0 - 5.0 % [facility] ([place]) RBC morphology Consistent with RBC Indicies [facility] ([place]) Platelet estimate Automated Count Confirmed [facility] ([place]) Blood 08/08/2024 9:43 AM SURVEILLANCE OFFICER 08/08/2024 9:45 AM SURVEILLANCE OFFICER Matthieu Bautista MD LAB BLOOD ORDERABLES Final Resu lt Performing Organization Address City/[facility]/ZIP Co de Phone Number [facility] ([place]) 1 [facility] [place] [address] * Magnesium (08/08/2024 9:43 AM SURVEILLANCE OFFICER) [facility] Magnesium 1.7 1.4 - 2.5 mg/dL Blood 08/08/2024 9:43 AM SURVEILLANCE OFFICER 08/08/2024 9:45 AM SURVEILLANCE OFFICER Matthieu Bautista MD LAB BLOOD ORDERABLES Final Resu lt Performing Organization Address City/[facility] Co de Phone Number [facility] ([place]) 1 [facility] [place] [address] * Bilirubin, direct (08/08/2024 9:43 AM SURVEILLANCE OFFICER) [facility] Bilirubin, direct 0.2 0.1 - 0.3 mg/dL Blood 08/08/2024 9:43 AM SURVEILLANCE OFFICER 08/08/2024 9:45 AM SURVEILLANCE OFFICER Matthieu Bautista MD LAB BLOOD ORDERABLES Final Resu lt Performing Organization Address City/[facility]/ZIP Co de Phone Number [facility] ([place]) 1 [facility] [place] [address] * (ABNORMAL) Comprehensive metabolic panel (08/08/2024 9:43 AM SURVEILLANCE OFFICER) [facility] Sodium 134(L) 135 - 145 mmol/L Potassium, pl 3.8 3.3 - 4.9 mmol/L [facility] ([place]) Chloride 100 97 - 110 mmol/L [facility] ([place]) CO2 22 22 - 32 mmol/L [facility] ([place]) Anion gap 13 2 - 15 mmol/L [facility] ([place]) BUN 11 6 - 25 mg/dL [facility] ([place]) Creatinine 0.55(L) 0.80 - 1.30 mg/dL [facility] ([place]) Glucose 162 70 - 199 mg/dL [facility] ([place]) Comment: Interpretive Data Fasting glucose >/= 126 mg/dl is diagnostic for diabetes. Fasting is defined as no caloric intake for at least 8 hours. Fasting glucose between 100 mg/dl to 125 mg/dl is diagnostic of prediabetes. In a patient with classic symptoms of hyperglycemia or hyperglycemic crisis, a random glucose >/= 200 mg/dl is diagnostic for diabetes. In the absence of unequivocal hyperglycemia, results should be confirmed by repeat testing. The classification and Diagnosis of Diabetes Diabetes Care 202; 46: S19-S40. Current interpretive data was last revised 2022. Calcium 9.2 8.5 - 10.3 mg/dL [facility] ([place]) Bilirubin, total 0.6 0.1 - 1.2 mg/dL [facility] ([place]) Protein, pl 7.2 6.5 - 8.5 g/dL [facility] ([place]) Albumin 4.0 3.5 - 5.0 g/dL [facility] ([place]) Alk phos 143(H) 40 - 130 Units/L [facility] ([place]) ALT 55 7 - 55 Units/L [facility] ([place]) AST 78(H) 10 - 50 Units/L [facility] ([place]) Blood 08/08/2024 9:43 AM SURVEILLANCE OFFICER 08/08/2024 9:45 AM SURVEILLANCE OFFICER us Matthieu Bautista MD LAB BLOOD ORDERABLES Final Resu lt [facility] ([place]) 1 [facility] Department [place] [address] * eGFR (08/07/2024 3:34 AM SURVEILLANCE OFFICER) eGFR >90 >=60 mL/min/1. 73 m2 Comment: Interpretive Data Reference Interval Normal >/= 90 mL/min/1.73m2 Mildly decreased* 60 - 89 mL/min/1.73m2 Mildly to moderately decreased 45 - 59 mL/min/1.73m2 Moderately to severely decreased 30 - 44 mL/min/1.73m2 Severely decreased 15 - 29 mL/min/1.73m2 Kidney Failure < 15 mL/min/1.73m2 *Relative to young adult level Estimated glomerular filtration rate is determined by the 2020 CKD-EPI equation recommended by the National Kidney Foundation (A Unifying Approach to GFR Estimation: Recommendations of the NKF-ASK Task Force on Reassessing the Inclusion of Race in Diagnosing Kidney Disease, JASN 2020). The CKD-EPI equation should not be used for patients with unstable renal function and has not been validated in children and those over 70. Current interpretive data was last reviewed 2021. Blood 08/07/2024 3:34 AM SURVEILLANCE OFFICER 08/07/2024 4:22 AM SURVEILLANCE OFFICER us Matthieu Bautista MD LAB BLOOD ORDERABLES Final Resu lt [facility] ([place]) 1 [facility] Department [place] [address] * Differential, auto (08/07/2024 3:34 AM SURVEILLANCE OFFICER) Neutrophil abs 1.6 1.5 - 6.5 K/cumm Imm gran abs 0.0 0.0 - 0.1 K/cumm [facility] ([place]) Lymphocyte abs 1.4 0.8 - 3.3 K/cumm [facility] ([place]) Monocyte abs 0.3 0.2 - 0.8 K/cumm [facility] ([place]) Eosinophil abs 0.1 0.0 - 0.5 K/cumm [facility] ([place]) Basophil abs 0.1 0.0 - 0.1 K/cumm [facility] ([place]) Neutrophil pct 45.9 % [facility] ([place]) Comment: Interpretive Data Percent cell count reference ranges are not reported, since discordance with absolute values may lead to misinterpretation of CBC data. Current Interpretive Data was last revised on 2017. Imm gran pct 0.6 % [facility] ([place]) Comment: Interpretive Data Percent cell count reference ranges are not reported, since discordance with absolute values may lead to misinterpretation of CBC data. Current Interpretive Data was last revised on 2017. Lymphocyte pct 39.9 % [facility] ([place]) Comment: Interpretive Data Percent cell count reference ranges are not reported, since discordance with absolute values may lead to misinterpretation of CBC data. Current Interpretive Data was last revised on 2017. Monocyte pct 8.7 % [facility] ([place]) Comment: Interpretive Data Percent cell count reference ranges are not reported, since discordance with absolute values may lead to misinterpretation of CBC data. Current Interpretive Data was last revised on 2017. Eosinophil pct 3.2 % [facility] ([place]) Comment: Interpretive Data Percent cell count reference ranges are not reported, since discordance with absolute values may lead to misinterpretation of CBC data. Current Interpretive Data was last revised on 2017. Basophil pct 1.7 % [facility] ([place]) Comment: Interpretive Data Percent cell count reference ranges are not reported, since discordance with absolute values may lead to misinterpretation of CBC data. Current Interpretive Data was last revised on 2017. Blood 08/07/2024 3:34 AM SURVEILLANCE OFFICER 08/07/2024 4:22 AM SURVEILLANCE OFFICER us Matthieu Bautista MD LAB BLOOD ORDERABLES Final Resu lt [facility] ([place]) 1 [facility] Department [place] [address] * (ABNORMAL) CBC with auto differential (08/07/2024 3:34 AM SURVEILLANCE OFFICER) WBC 3.4(L) 3.8 - 9.9 K/cumm Hgb 13.4 13.0 - 17.5 g/dL [facility] ([place]) Hct 38.4(L) 38.9 - 50.3 % [facility] ([place]) Plt 83(L) 150 - 400 K/cumm [facility] ([place]) MPV 9.7 9.1 - 12.3 fL [facility] ([place]) RBC 4.27(L) 4.30 - 5.80 M/cumm [facility] ([place]) MCV 89.9 81.3 - 96.4 fL [facility] ([place]) MCH 31.4 27.1 - 33.3 pg [facility] ([place]) MCHC 34.9 32.3 - 35.7 g/dL [facility] ([place]) RDW CV 13.3 11.1 - 14.9 % [facility] ([place]) RDW SD 44.2 35.7 - 48.1 fL [facility] ([place]) NRBC abs 0.00 0.00 - 0.01 K/cumm [facility] ([place]) Blood 08/07/2024 3:34 AM SURVEILLANCE OFFICER 08/07/2024 4:22 AM SURVEILLANCE OFFICER Matthieu Bautista MD LAB BLOOD ORDERABLES Final Resu lt [facility] ([place]) 1 [facility] [place] [address] * Phosphorus (08/07/2024 3:34 AM SURVEILLANCE OFFICER) Phosphorus, pl 3.3 2.3 - 4.5 mg/dL Blood 08/07/2024 3:34 AM SURVEILLANCE OFFICER 08/07/2024 4:22 AM SURVEILLANCE OFFICER Isael Vallejo MD LAB BLOOD ORDERABLES Final Resul t [facility] ([place]) 1 [facility] [place] [address] * Magnesium (08/07/2024 3:34 AM SURVEILLANCE OFFICER) Magnesium 1.9 1.4 - 2.5 mg/dL Blood 08/07/2024 3:34 AM SURVEILLANCE OFFICER 08/07/2024 4:22 AM SURVEILLANCE OFFICER Matthieu Bautista MD LAB BLOOD ORDERABLES Final Resu lt [facility] ([place]) 1 [facility] [place] [address] * (ABNORMAL) Bilirubin, direct (08/07/2024 3:34 AM SURVEILLANCE OFFICER) Bilirubin, direct 0.4(H) 0.1 - 0.3 mg/dL Blood 08/07/2024 3:34 AM SURVEILLANCE OFFICER 08/07/2024 4:22 AM SURVEILLANCE OFFICER Matthieu Bautista MD LAB BLOOD ORDERABLES Final Resu lt Performing Organization Address City/[facility] Co de Phone Number [facility] ([place]) 1 [facility] [place] [address] * (ABNORMAL) Comprehensive metabolic panel (08/07/2024 3:34 AM SURVEILLANCE OFFICER) Sodium 135 135 - 145 mmol/L Potassium, pl 3.5 3.3 - 4.9 mmol/L [facility] ([place]) Chloride 98 97 - 110 mmol/L [facility] ([place]) CO2 23 22 - 32 mmol/L [facility]) Anion gap 14 2 - 15 mmol/L [facility] BUN 12 6 - 25 mg/dL [facility] ([place]) Creatinine 0.54(L) 0.80 - 1.30 mg/dL [facility] ([place]) Glucose 104 70 - 199 mg/dL [facility] ([place]) Comment: Interpretive Data Fasting glucose >/= 126 mg/dl is diagnostic for diabetes. Fasting is defined as no caloric intake for at least 8 hours. Fasting glucose between 100 mg/dl to 125 mg/dl is diagnostic of prediabetes. In a patient with classic symptoms of hyperglycemia or hyperglycemic crisis, a random glucose >/= 200 mg/dl is diagnostic for diabetes. In the absence of unequivocal hyperglycemia, results should be confirmed by repeat testing. The classification and Diagnosis of Diabetes Diabetes Care 2021; 46: S19-S40. Current interpretive data was last revised 2022. Calcium 9.3 8.5 - 10.3 mg/dL [facility] ([place]) Bilirubin, total 0.9 0.1 - 1.2 mg/dL [facility] ([place]) Protein, pl 7.3 6.5 - 8.5 g/dL [facility] ([place]) Albumin 4.1 3.5 - 5.0 g/dL [facility] ([place]) Alk phos 151(H) 40 - 130 Units/L [facility] ([place]) ALT 78(H) 7 - 55 Units/L [facility] ([place]) AST 189(H) 10 - 50 Units/L [facility] ([place]) Blood 08/07/2024 3:34 AM SURVEILLANCE OFFICER 08/07/2024 4:22 AM SURVEILLANCE OFFICER us Matthieu Bautista MD LAB BLOOD ORDERABLES Final Resu lt [facility] ([place]) 1 [facility] Department [place] [address] * eGFR (08/06/2024 4:45 AM SURVEILLANCE OFFICER) eGFR >90 >=60 mL/min/1. 73 m2 Comment: Interpretive Data Reference Interval Normal >/= 90 mL/min/1.73m2 Mildly decreased* 60 - 89 mL/min/1.73m2 Mildly to moderately decreased 45 - 59 mL/min/1.73m2 Moderately to severely decreased 30 - 44 mL/min/1.73m2 Severely decreased 15 - 29 mL/min/1.73m2 Kidney Failure < 15 mL/min/1.73m2 *Relative to young adult level Estimated glomerular filtration rate is determined by the 2020 CKD-EPI equation recommended by the National Kidney Foundation (A Unifying Approach to GFR Estimation: Recommendations of the NKF-ASK Task Force on Reassessing the Inclusion of Race in Diagnosing Kidney Disease, JASN 2020). The CKD-EPI equation should not be used for patients with unstable renal function and has not been validated in children and those over 70. Current interpretive data was last reviewed 2021. Blood 08/06/2024 4:45 AM SURVEILLANCE OFFICER 08/06/2024 4:50 AM SURVEILLANCE OFFICER us Matthieu Bautista MD LAB BLOOD ORDERABLES Final Resu lt [facility] ([place]) 1 [facility] Department [place] [address] * Differential, auto (08/06/2024 4:45 AM SURVEILLANCE OFFICER) Neutrophil abs 1.6 1.5 - 6.5 K/cumm Imm gran abs 0.0 0.0 - 0.1 K/cumm [facility] ([place]) Lymphocyte abs 1.3 0.8 - 3.3 K/cumm [facility] ([place]) Monocyte abs 0.3 0.2 - 0.8 K/cumm [facility] ([place]) Eosinophil abs 0.1 0.0 - 0.5 K/cumm [facility] ([place]) Basophil abs 0.0 0.0 - 0.1 K/cumm [facility] ([place]) Neutrophil pct 47.0 % [facility] ([place]) Comment: Interpretive Data Percent cell count reference ranges are not reported, since discordance with absolute values may lead to misinterpretation of CBC data. Current Interpretive Data was last revised on 2017. Imm gran pct 0.0 % [facility] ([place]) Comment: Interpretive Data Percent cell count reference ranges are not reported, since discordance with absolute values may lead to misinterpretation of CBC data. Current Interpretive Data was last revised on 2017. Lymphocyte pct 40.1 % [facility] ([place]) Comment: Interpretive Data Percent cell count reference ranges are not reported, since discordance with absolute values may lead to misinterpretation of CBC data. Current Interpretive Data was last revised on 2017. Monocyte pct 9.9 % [facility] ([place]) Comment: Interpretive Data Percent cell count reference ranges are not reported, since discordance with absolute values may lead to misinterpretation of CBC data. Current Interpretive Data was last revised on 2017. Eosinophil pct 1.8 % [facility] ([place]) Comment: Interpretive Data Percent cell count reference ranges are not reported, since discordance with absolute values may lead to misinterpretation of CBC data. Current Interpretive Data was last revised on 2017. Basophil pct 1.2 % [facility] ([place]) Comment: Interpretive Data Percent cell count reference ranges are not reported, since discordance with absolute values may lead to misinterpretation of CBC data. Current Interpretive Data was last revised on 2017. Blood 08/06/2024 4:45 AM SURVEILLANCE OFFICER 08/06/2024 4:50 AM SURVEILLANCE OFFICER us Matthieu Bautista MD LAB BLOOD ORDERABLES Final Resu lt [facility] ([place]) 1 [facility] Department [place] [address] * (ABNORMAL) CBC with auto differential (08/06/2024 4:45 AM SURVEILLANCE OFFICER) WBC 3.3(L) 3.8 - 9.9 K/cumm Hgb 13.2 13.0 - 17.5 g/dL [facility] ([place]) Hct 37.1(L) 38.9 - 50.3 % [facility] ([place]) Plt 88(L) 150 - 400 K/cumm [facility] ([place]) MPV 9.7 9.1 - 12.3 fL [facility] ([place]) RBC 4.12(L) 4.30 - 5.80 M/cumm [facility] ([place]) MCV 90.0 81.3 - 96.4 fL [facility] ([place]) MCH 32.0 27.1 - 33.3 pg [facility] ([place]) MCHC 35.6 32.3 - 35.7 g/dL [facility] ([place]) RDW CV 13.1 11.1 - 14.9 % [facility] ([place]) RDW SD 43.1 35.7 - 48.1 fL [facility] ([place]) NRBC abs 0.00 0.00 - 0.01 K/cumm [facility] ([place]) Blood 08/06/2024 4:45 AM SURVEILLANCE OFFICER 08/06/2024 4:50 AM SURVEILLANCE OFFICER Matthieu Bautista MD LAB BLOOD ORDERABLES Final Resu lt Performing Organization Address [facility]/ZIP Co de Phone Number [facility] ([place]) 1 [facility] [place] [address] * Magnesium (08/06/2024 4:45 AM SURVEILLANCE OFFICER) Magnesium 1.5 1.4 - 2.5 mg/dL Blood 08/06/2024 4:45 AM SURVEILLANCE OFFICER 08/06/2024 4:50 AM SURVEILLANCE OFFICER Matthieu Bautista MD LAB BLOOD ORDERABLES Final Resu lt Performing Organization Address [facility] de Phone Number [facility] ([place]) 1 [facility] [place] [address] * Bilirubin, direct (08/06/2024 4:45 AM SURVEILLANCE OFFICER) Bilirubin, direct 0.3 0.1 - 0.3 mg/dL Comment: Hemolysis present. Results may be affected. Slightly Hemolyzed Specimen Blood 08/06/2024 4:45 AM SURVEILLANCE OFFICER 08/06/2024 4:50 AM SURVEILLANCE OFFICER Matthieu Bautista MD LAB BLOOD ORDERABLES Final Resu lt Performing Organization Address [facility] Co de Phone Number [facility] ([place]) 1 [facility] [place] [address] * Ethanol (08/06/2024 4:45 AM SURVEILLANCE OFFICER) Ethanol <10 <=10 mg/dL Comment: Interpretive Data Legal limit of intoxication > or = 80 mg/dL Levels > or = 400 mg/dL are potentially TOXIC. Current interpretive data was last revised on 2018. Blood 08/06/2024 4:45 AM SURVEILLANCE OFFICER 08/06/2024 4:50 AM SURVEILLANCE OFFICER us Matthieu Bautista MD LAB BLOOD ORDERABLES Final Resu lt [facility] ([place]) 1 [facility] Department [place] [address] * (ABNORMAL) Comprehensive metabolic panel (08/06/2024 4:45 AM SURVEILLANCE OFFICER) Sodium 134(L) 135 - 145 mmol/L Potassium, pl 3.5 3.3 - 4.9 mmol/L [facility] ([place]) Chloride 98 97 - 110 mmol/L [facility] ([place]) CO2 15(L) 22 - 32 mmol/L [facility] ([place]) Anion gap 21(H) 2 - 15 mmol/L [facility] ([place]) BUN 9 6 - 25 mg/dL [facility] ([place]) Creatinine 0.61(L) 0.80 - 1.30 mg/dL [facility] ([place]) Comment:Icteric sample, test results may be affected. Glucose 91 70 - 199 mg/dL [facility] ([place]) Comment: Interpretive Data Fasting glucose >/= 126 mg/dl is diagnostic for diabetes. Fasting is defined as no caloric intake for at least 8 hours. Fasting glucose between 100 mg/dl to 125 mg/dl is diagnostic of prediabetes. In a patient with classic symptoms of hyperglycemia or hyperglycemic crisis, a random glucose >/= 200 mg/dl is diagnostic for diabetes. In the absence of unequivocal hyperglycemia, results should be confirmed by repeat testing. The classification and Diagnosis of Diabetes Diabetes Care 202; 46: S19-S40. Current interpretive data was last revised 2022. Calcium 8.7 8.5 - 10.3 mg/dL [facility] ([place]) Bilirubin, total 0.7 0.1 - 1.2 mg/dL [facility] ([place]) Protein, pl 7.1 6.5 - 8.5 g/dL [facility] ([place]) Albumin 4.0 3.5 - 5.0 g/dL [facility] ([place]) Alk phos 135(H) 40 - 130 Units/L [facility] ([place]) ALT 95(H) 7 - 55 Units/L [facility] ([place]) Comment:Lipemia present. Res ults may be affected. AST 613(H) 10 - 50 Units/L [facility] ([place]) Comment: Hemolysis present. Results may be affected. Lipemia present. Results may be affected. Slightly Hemolyzed Specimen Blood 08/06/2024 4:45 AM SURVEILLANCE OFFICER 08/06/2024 4:50 AM SURVEILLANCE OFFICER us Matthieu Bautista MD LAB BLOOD ORDERABLES Final Resu lt Performing Organization Address City/[facility]/ZIP Co de Phone Number [facility] ([place]) 1 [facility] Department [place] [address] * eGFR (08/05/2024 10:48 AM SURVEILLANCE OFFICER) eGFR >90 >=60 mL/min/1. 73 m2 Comment: Interpretive Data Reference Interval Normal >/= 90 mL/min/1.73m2 Mildly decreased* 60 - 89 mL/min/1.73m2 Mildly to moderately decreased 45 - 59 mL/min/1.73m2 Moderately to severely decreased 30 - 44 mL/min/1.73m2 Severely decreased 15 - 29 mL/min/1.73m2 Kidney Failure < 15 mL/min/1.73m2 *Relative to young adult level Estimated glomerular filtration rate is determined by the 2020 CKD-EPI equation recommended by the National Kidney Foundation (A Unifying Approach to GFR Estimation: Recommendations of the NKF-ASK Task Force on Reassessing the Inclusion of Race in Diagnosing Kidney Disease, JASN 2020). The CKD-EPI equation should not be used for patients with unstable renal function and has not been validated in children and those over 70. Current interpretive data was last reviewed 2021. Blood 08/05/2024 10:4 8 AM SURVEILLANCE OFFICER 08/05/2024 10:50 AM SURVEILLANCE OFFICER us Gayla Nova MD LAB BLOOD ORDERABLES Final Re sult [facility] ([place]) 1 [facility] Department [place] [address] * Drugs of Abuse Screen, Urine without Confirmation (08/05/2024 10:48 AM SURVEILLANCE OFFICER) Amphetamine, ur Not Detected CutOff 500ng/mL Comment: Interpretive Data - Amphetamines: Samples containing greater than 500 ng/mL d-methamphetamine or other cross-reacting amphetamine compounds are reported as positive. Amphetamine immunoassays are subject to significant false positive rates due to cross-reactivity of non-amphetamine drugs. Confirmatory testing required for definitive results. Current Interpretive Data was last reviewed 2023. Barbiturates, ur Not Detected CutOff 200ng/mL [facility] ([place]) Comment: Interpretive Data - Barbiturates: Samples containing greater than 200 ng/mL secobarbital or other cross-reacting barbiturate compounds are reported as positive. False positive and false negative results are possible. Confirmatory testing required for definitive results. Current Interpretive Data was last reviewed 2023. Benzodiazepines, ur Not Detected CutOff 100ng/mL [facility] ([place]) Comment: Interpretive Data - Benzodiazepines: Samples containing greater than 100 ng/mL nordiazepam or other cross-reacting compounds are reported as positive. False positive and false negative results are possible. Confirmatory testing required for definitive results. Current Interpretive Data was last reviewed 2023. Cannabinoids, ur Not Detected CutOff 50 ng/mL [facility] ([place]) Comment: Interpretive Data - Cannabinoids: Samples containing greater than 50 ng/mL delta-9 THC -COOH or other cross- reacting compounds are reported as positive. False positive and false negative results are possible. Confirmatory testing required for definitive results. Current Interpretive Data was last reviewed 2023. Cocaine, ur Not Detected CutOff 150ng/mL [facility] ([place]) Comment: Interpretive Data - Cocaine: Samples containing greater than 150 ng/mL benzoylecgonine or other cross- reacting compounds are reported as positive. False positive and false negative results are possible. Confirmatory testing required for definitive results. Current Interpretive Data was last reviewed 2023. Fentanyl, Ur Not Detected CutOff 5 ng/mL [facility] ([place]) Comment: Interpretive Data - Fentanyl: Samples containing greater than 5 ng/mL norfentanyl, fentanyl, or other cross-reacting fentanyl compounds are reported as positive. False positive and false negative results are possible. Confirmatory testing required for definitive results. Current Interpretive Data was last reviewed 2023. Methadone, ur Not Detected CutOff 300ng/mL [facility] ([place]) Comment: Interpretive Data - Methadone: Samples containing greater than 300 ng/mL d,l-methadone or other cross-reacting compounds are reported as positive. False positive and false negative results are possible. Confirmatory testing required for definitive results. Current Interpretive Data was last reviewed 2023. Opiates, ur Not Detected CutOff 300ng/mL [facility] ([place]) Comment: Interpretive Data - Opiates: Samples containing greater than 300 ng/mL morphine or other cross-reacting compounds are reported as positive. False positive and false negative results are possible. Confirmatory testing required for definitive results. Current Interpretive Data was last reviewed 2023. Oxycodone, ur Not Detected CutOff 100ng/mL [facility] ([place]) Comment: Interpretive Data - Oxycodone: Samples containing greater than 100 ng/mL oxycodone or other cross-reacting compounds are reported as positive. False positive and false negative results are possible. Confirmatory testing required for definitive results. Current Interpretive Data was last reviewed 2023. Phencyclidine, ur Not Detected CutOff 25 ng/mL [facility] ([place]) Comment: Interpretive Data - Phencyclidine: Samples containing greater than 25 ng/mL phencyclidine or other cross-reacting compounds are reported as positive. False positive and false negative results are possible. Confirmatory testing required for definitive results. Current Interpretive Data was last reviewed 2023. Urine Creatinine 71 mg/dL [facility] ([place]) Comment: Interpretive Data Urine Creatinine: < 10 mg/dL is extremely dilute = or > 10 but < 20 mg/dL is dilute = or > 20 mg/dL is normal Current Interpretive Data was last revised on 2017. Urine 08/05/2024 10:4 8 AM SURVEILLANCE OFFICER 08/05/2024 10:50 AM SURVEILLANCE OFFICER Narrative [facility] ([place]) - 08/05/2024 11:21 AM SURVEILLANCE OFFICER Drug of Abuse screening is performed by immunoassay for medical purposes only. This is not to be used for Pain Management purposes. us Gayla Nova MD LAB URINE ORDERABLES Final Re sult [facility] ([place]) 1 [facility] Department [place] [address] * (ABNORMAL) CBC without differential (08/05/2024 10:48 AM SURVEILLANCE OFFICER) WBC 5.5 3.8 - 9.9 K/cumm Hgb 13.4 13.0 - 17.5 g/dL [facility] ([place] Hct 38.4(L) 38.9 - 50.3 % [facility] ([place] Plt 129(L) 150 - 400 K/cumm [facility] ([place]) MPV 10.0 9.1 - 12.3 fL [facility] ([place]) RBC 4.31 4.30 - 5.80 M/cumm [facility] ([place]) MCV 89.1 81.3 - 96.4 fL [facility] MCH 31.1 27.1 - 33.3 pg [facility] ([place] MCHC 34.9 32.3 - 35.7 g/dL [facility] RDW CV 13.4 11.1 - 14.9 % [facility] RDW SD 44.1 35.7 - 48.1 fL [facility] NRBC abs 0.00 0.00 - 0.01 K/cumm [facility] ([place]) Blood 08/05/2024 10:4 8 AM SURVEILLANCE OFFICER 08/05/2024 10:50 AM SURVEILLANCE OFFICER us Gayla Nova MD LAB BLOOD ORDERABLES Final Re sult [facility] ([place]) 1 [facility] Department [place] [address] * (ABNORMAL) Comprehensive metabolic panel (08/05/2024 10:48 AM SURVEILLANCE OFFICER) Sodium 134(L) 135 - 145 mmol/L Potassium, pl 3.4 3.3 - 4.9 mmol/L [facility] ([place] Chloride 97 97 - 110 mmol/L [facility] CO2 20(L) 22 - 32 mmol/L [facility] ([place]) Anion gap 18(H) 2 - 15 mmol/L [facility] ([place]) BUN 11 6 - 25 mg/dL [facility] ([place]) Creatinine 0.74(L) 0.80 - 1.30 mg/dL [facility] ([place] Glucose 171 70 - 199 mg/dL [facility] ([place]) Comment: Interpretive Data Fasting glucose >/= 126 mg/dl is diagnostic for diabetes. Fasting is defined as no caloric intake for at least 8 hours. Fasting glucose between 100 mg/dl to 125 mg/dl is diagnostic of prediabetes. In a patient with classic symptoms of hyperglycemia or hyperglycemic crisis, a random glucose >/= 200 mg/dl is diagnostic for diabetes. In the absence of unequivocal hyperglycemia, results should be confirmed by repeat testing. The classification and Diagnosis of Diabetes Diabetes Care 2021; 46: S19-S40. Current interpretive data was last revised 2022. Calcium 8.5 8.5 - 10.3 mg/dL [facility] ([place]) Bilirubin, total 0.7 0.1 - 1.2 mg/dL [facility] ([place]) Protein, pl 7.7 6.5 - 8.5 g/dL [facility] ([place]) Albumin 4.3 3.5 - 5.0 g/dL [facility] ([place] Alk phos 125 40 - 130 Units/L [facility] ([place] ALT 61(H) 7 - 55 Units/L [facility] ([place] AST 192(H) 10 - 50 Units/L [facility] ([place]) Comment: Hemolysis present. Results may be affected. Slightly Hemolyzed Specimen Blood 08/05/2024 10:4 8 AM SURVEILLANCE OFFICER 08/05/2024 10:50 AM SURVEILLANCE OFFICER us Gayla Nova MD LAB BLOOD ORDERABLES Final Re sult [facility] ([place] 1 [facility] Department [place] [address] * Hepatitis C antibody Blood (04/27/2024 2:14 AM CDT) Hep C Ab Nonreactive Nonreactive Comment: Antibodies to HCV not detected. Does NOT exclude the possibility of recent exposure to HCV. Current interpretive data was last revised on 22 Interpretive Data Nonreactive: Antibodies to HCV not detected. Does NOT exclude the possibility of recent exposure to HCV. Equivocal: Equivocal for HCV antibodies. Supplemental molecular testing will be automatically performed to determine infection status in accordance with current CDC screening recommendations. Reactive: Positive for HCV antibodies. This may represent current or past HCV infection. Supplemental molecular testing will be automatically performed to determine current infection status in accordance with current CDC screening recommendations. Interpretive data was last revised on 2019. Blood 04/27/2024 2:14 AM CDT 04/27/2024 2:42 AM CDT us Smith Frederick MD LAB MICROBIOLOGY - [facility] ORDERABLES Final Result [facility] [address] [facility] [place] [address] from Last 3 Months or Most Recently Relevant to Health Maintenance Insurance [facility] [place] [address] [place] [address] [facility] * Guarantor: [employer] Account Type Relation to Patient Date of Phone Billing Address Workers Comp 1974 Advance Directives For more information, please contact: [phone] * Full Code (Latest Code Status on File) Date Activated Date Inactivated Comments 08/05/2024 2:38 PM 08/16/2024 9:19 PM * Full Code Date Activated Date Inactivated Comments 04/26/2024 9:45 PM 05/02/2024 5:03 PM * Full Code Date Activated Date Inactivated Comments 10/27/2023 11:20 AM 10/31/2023 1:11 PM * Full Code Date Activated Date Inactivated Comments 12/03/2022 1:55 PM 12/07/2022 6:51 PM * Full Code Date Activated Date Inactivated Comments 06/04/2021 4:14 PM 06/09/2021 3:47 PM Care Teams Customer Service Associate Relationship Specialty Start Date End Date Hans Toro MD [address] [address] PCP - General Internal Medicine 04/26/24
--- OUTSIDE RECORDS SUMMARY | 2024-11-01 13:26 | XMS_ITS | Clinical Summary ---
Author Organization [facility] Address [address] [place] [address] Care Team Providers Care Water Project Manager Name Role Phone Hans Toro MD Primary Care Provider Allergies No known active allergies Medications gabapentin [...] Osteoarthritis GERD (gastroesophageal reflux disease) Depression Anxiety Encounters Date Type Department Care Team Description 08/28/2024 Documentation [facility] [address] [place], [place] [phone] Merced Hamilton 08/12/2024 Documentation [facility] [address] [place], [place] [phone] Nilo Conrad RRT 08/09/2024 Documentation [facility] [address] [place], [place] [phone] [place], Cheryl E. 08/09/2024 Documentation [facility] [address] [place], [place] [phone] [place], Cheryl E. 08/08/2024 Documentation [facility] [address] [place], [place] [phone] [place], Cheryl E. 08/08/2024 Documentation [facility] [address] [place] [phone] [place], Cheryl E. 08/05/2024 1:54 PM DYNAMICS AX SOLUTION ARCHITECT - 08/16/2024 5:02 PM DYNAMICS AX SOLUTION ARCHITECT Hospital Encounter [facility] [address] [place] [id number] Gayla Nova MD Sinha, Chandni, MD Saeed, Salman, MD Quaizar, Huzaifa, MD Bezuneh, Abraham Deneke, MD Alcohol withdrawal syndrome, uncomplicated (HCC) (Primary Dx) Discharge Disposition: Discharge to home or self care 08/05/2024 11:30 AM DYNAMICS AX SOLUTION ARCHITECT Lab [address] [phone] 08/05/2024 AM[facility] Enrollment [facility] [address] [place], [place] [phone] Vineet Russo 08/05/2024 Documentation [facility] [address] [place] [address] Vineet Russo from Last 3 Months Immunizations Immunization Administration Dates Next Due Moderna SARS-CoV-2 Monovalent Vaccination (12+ Y RS) 01/01/2021,11/30/2020 Medical History Medical History Date Comments Personal history of other me ntal and behavioral disorders History of depression - (Add ed by TW Conv) GERD (gastroesophageal reflux disease) Anxiety Depression Peripheral neuropathy Osteoarthritis Family History Medical History Relation Name Comments Diabetes Mother Family history of diabetes mellitus - (Added by TW Conv) Hypertension Mother Family history of hypertension - (Added by TW Conv) Relation Name Status Comments Mother Social History Tobacco Use Types Packs/Day Years Used Date Smoking Tobacco: Every Day Cigarettes Smokeless Tobacco: Never [facility] [place] Answer Date Recorded In the past 12 months has e electric, gas, oil, or water company threatened to [...] week 04/29/2024 How often do you attend [facility] or judaism services? More than 4 times per year 04/29/2024 Do you belong to any clubs o r organizations such as mosque groups, unions, fraternal or athletic groups, or [...] any time in the past 12 m [facility], were you homeless or living in a prison (including now)? No 04/29/2024 Personal Safety Answer Date Recorded Have you ever been in or are you currently in a harmful physical or emotional relationship or is someone making you feel afraid or unsafe? Denies 08/05/2024 Sex and Gender Information Value Date Recorded Sex Assigned at Not on file Legal Sex Male 4:16 AM DYNAMICS AX SOLUTION ARCHITECT Gender Identity Not on file Sexual Orientation Not on file Obstetrics History Last Filed Vital Signs Vital Sign Reading Time Taken Comments Blood Pressure 137/71 08/16/2024 12:16 PM DYNAMICS AX SOLUTION ARCHITECT Pulse 93 08/16/2024 12:16 PM DYNAMICS AX SOLUTION ARCHITECT Temperature 36.1 C (96.9 F) 08/16/2024 12:16 PM DYNAMICS AX SOLUTION ARCHITECT Respiratory Rate 12 08/16/2024 7:42 AM DYNAMICS AX SOLUTION ARCHITECT Oxygen Saturation 97% 08/16/2024 12: 16 PM DYNAMICS AX SOLUTION ARCHITECT Inhaled Oxygen Concentration - - Weight 83.3 kg (183 lb 10.3 oz) 08/12/2024 4:04 AM DYNAMICS AX SOLUTION ARCHITECT Height 182.9 cm (6') 08/05/2024 2:50 PM DYNAMICS AX SOLUTION ARCHITECT Body Mass Index 24.91 08/05/2024 2:50 PM DYNAMICS AX SOLUTION ARCHITECT Plan of Treatment Health Maintenance Due Date Last Done Comments Colon Cancer Screening-Colonoscopy 1974 Prostate Cancer Screening-PSA 1974 Hepatitis B Screening 1992 Regular Well Visit/Exam 18-64 1992 Pneumococcal vaccine <65 (1 of 2 - PCV) 1993 Depression Screening 06/01/2022 06/01/2021 DTaP/Tdap/Td Vaccine (3 - Td or Tdap) 12/22/202206/2013, 12/14/2011 Zoster Vaccine (1 of 2) 2024 Covid-19 Vaccine (3 - 2023- season) 2024, 11/30/2020 Influenza Vaccine (#1) 2024 Hepatitis C Screening Completed 04/27/2024 , 10/30/2023, 06/09/2021 Goals Goal Patient Goal Type Associated Problems Recent Progress Patient-Stated? Author Quit drinking alcohol Alcohol Use Flower See Note: Pt will come 3-5 days in medical stabilization to address alcohol withdrawal. Procedures Procedure Name Priority Date/Time Associated Diagnosis Comments MANUAL DIFFERENTIAL Routine 08/16/2024 5 :17 AM DYNAMICS AX SOLUTION ARCHITECT EGFR Routine 08/16/2024 5:17 AM DYNAMICS AX SOLUTION ARCHITECT BILIRUBIN, DIRECT Routine 08/16/2024 5:1 7 AM DYNAMICS AX SOLUTION ARCHITECT MAGNESIUM Routine 08/16/2024 5:17 AM DYNAMICS AX SOLUTION ARCHITECT COMPREHENSIVE METABOLIC PANEL Routine 08/16/2024 5:17 AM DYNAMICS AX SOLUTION ARCHITECT CBC WITH AUTO DIFFERENTIAL Routine 08/16/2024 5:17 AM DYNAMICS AX SOLUTION ARCHITECT EGFR Routine 08/15/2024 12:22 PM DYNAMICS AX SOLUTION ARCHITECT BILIRUBIN, DIRECT Routine 08/15/2024 12: 22 PM DYNAMICS AX SOLUTION ARCHITECT DIFFERENTIAL AUTO Routine 08/15/2024 12: 22 PM DYNAMICS AX SOLUTION ARCHITECT MAGNESIUM Routine 08/15/2024 12:22 PM DYNAMICS AX SOLUTION ARCHITECT COMPREHENSIVE METABOLIC PANEL Routine 08/15/2024 12:22 PM DYNAMICS AX SOLUTION ARCHITECT CBC WITH AUTO DIFFERENTIAL Routine 08/15/2024 12:22 PM DYNAMICS AX SOLUTION ARCHITECT EGFR Routine 08/14/2024 9:53 AM DYNAMICS AX SOLUTION ARCHITECT BILIRUBIN, DIRECT Routine 08/14/2024 9:5 3 AM DYNAMICS AX SOLUTION ARCHITECT DIFFERENTIAL AUTO Routine 08/14/2024 9:5 3 AM DYNAMICS AX SOLUTION ARCHITECT MAGNESIUM Routine 08/14/2024 9:53 AM DYNAMICS AX SOLUTION ARCHITECT COMPREHENSIVE METABOLIC PANEL Routine 08/14/2024 9:53 AM DYNAMICS AX SOLUTION ARCHITECT CBC WITH AUTO DIFFERENTIAL Routine 08/14/2024 9:53 AM DYNAMICS AX SOLUTION ARCHITECT EGFR Routine 08/13/2024 3:33 AM DYNAMICS AX SOLUTION ARCHITECT BILIRUBIN, DIRECT Routine 08/13/2024 3:3 3 AM DYNAMICS AX SOLUTION ARCHITECT DIFFERENTIAL AUTO Routine 08/13/2024 3:3 3 AM DYNAMICS AX SOLUTION ARCHITECT MAGNESIUM Routine 08/13/2024 3:33 AM DYNAMICS AX SOLUTION ARCHITECT COMPREHENSIVE METABOLIC PANEL Routine 08/13/2024 3:33 AM DYNAMICS AX SOLUTION ARCHITECT CBC WITH AUTO DIFFERENTIAL Routine 08/13/2024 3:33 AM DYNAMICS AX SOLUTION ARCHITECT EGFR Routine 08/12/2024 10:35 AM DYNAMICS AX SOLUTION ARCHITECT BILIRUBIN, DIRECT Routine 08/12/2024 10: 35 AM DYNAMICS AX SOLUTION ARCHITECT MAGNESIUM Routine 08/12/2024 10:35 AM DYNAMICS AX SOLUTION ARCHITECT COMPREHENSIVE METABOLIC PANEL Routine 08/12/2024 10:35 AM DYNAMICS AX SOLUTION ARCHITECT DIFFERENTIAL AUTO Routine 08/12/2024 10: 34 AM DYNAMICS AX SOLUTION ARCHITECT CBC WITH AUTO DIFFERENTIAL Routine 08/12/2024 10:34 AM DYNAMICS AX SOLUTION ARCHITECT INFECTION PREVENTION MRSA ONLY (STAPHYLOCOCCUS AUREUS) PCR Routine 08/12/2024 9:50 AM DYNAMICS AX SOLUTION ARCHITECT LACTATE Routine 08/12/2024 9:17 AM DYNAMICS AX SOLUTION ARCHITECT EGFR Routine 08/11/2024 3:56 PM DYNAMICS AX SOLUTION ARCHITECT DIFFERENTIAL AUTO Routine 08/11/2024 3:5 6 PM DYNAMICS AX SOLUTION ARCHITECT LACTATE Routine 08/11/2024 3:56 PM DYNAMICS AX SOLUTION ARCHITECT CBC WITH AUTO DIFFERENTIAL Routine 08/11/2024 3:56 PM DYNAMICS AX SOLUTION ARCHITECT COMPREHENSIVE METABOLIC PANEL Routine 08/11/2024 3:56 PM DYNAMICS AX SOLUTION ARCHITECT BLOOD CULTURE Routine 08/11/2024 3:56 PM DYNAMICS AX SOLUTION ARCHITECT BLOOD CULTURE Routine 08/11/2024 3:56 PM DYNAMICS AX SOLUTION ARCHITECT DIFFERENTIAL AUTO STAT 08/11/2024 10: 12 AM DYNAMICS AX SOLUTION ARCHITECT CBC WITH AUTO DIFFERENTIAL STAT 08/11/2024 10:12 AM DYNAMICS AX SOLUTION ARCHITECT CT ABDOMEN PELVIS W CONTRAST Critical/Life-T hreatening 08/11/2024 7:55 AM DYNAMICS AX SOLUTION ARCHITECT EGFR Routine 08/11/2024 6:40 AM DYNAMICS AX SOLUTION ARCHITECT BILIRUBIN, DIRECT Routine 08/11/2024 6:4 0 AM DYNAMICS AX SOLUTION ARCHITECT DIFFERENTIAL AUTO Routine 08/11/2024 6:4 0 AM DYNAMICS AX SOLUTION ARCHITECT LACTATE STAT 08/11/2024 6:40 AM DYNAMICS AX SOLUTION ARCHITECT MAGNESIUM Routine 08/11/2024 6:40 AM DYNAMICS AX SOLUTION ARCHITECT COMPREHENSIVE METABOLIC PANEL Routine 08/11/2024 6:40 AM DYNAMICS AX SOLUTION ARCHITECT CBC WITH AUTO DIFFERENTIAL Routine 08/11/2024 6:40 AM DYNAMICS AX SOLUTION ARCHITECT XR ABDOMEN AP 1 VIEW IP Routine 08/11/2024 12:56 AM DYNAMICS AX SOLUTION ARCHITECT DIFFERENTIAL AUTO Routine 08/10/2024 10: 59 AM DYNAMICS AX SOLUTION ARCHITECT CBC WITH AUTO DIFFERENTIAL Routine 08/10/2024 10:59 AM DYNAMICS AX SOLUTION ARCHITECT EGFR Routine 08/10/2024 8:29 AM DYNAMICS AX SOLUTION ARCHITECT BILIRUBIN, DIRECT Routine 08/10/2024 8:2 9 AM DYNAMICS AX SOLUTION ARCHITECT MAGNESIUM Routine 08/10/2024 8:29 AM DYNAMICS AX SOLUTION ARCHITECT COMPREHENSIVE METABOLIC PANEL Routine 08/10/2024 8:29 AM DYNAMICS AX SOLUTION ARCHITECT EGFR Routine 08/09/2024 9:13 AM DYNAMICS AX SOLUTION ARCHITECT BILIRUBIN, DIRECT Routine 08/09/2024 9:1 3 AM DYNAMICS AX SOLUTION ARCHITECT DIFFERENTIAL AUTO Routine 08/09/2024 9:1 3 AM DYNAMICS AX SOLUTION ARCHITECT MAGNESIUM Routine 08/09/2024 9:13 AM DYNAMICS AX SOLUTION ARCHITECT COMPREHENSIVE METABOLIC PANEL Routine 08/09/2024 9:13 AM DYNAMICS AX SOLUTION ARCHITECT CBC WITH AUTO DIFFERENTIAL Routine 08/09/2024 9:13 AM DYNAMICS AX SOLUTION ARCHITECT EGFR Routine 08/08/2024 9:43 AM DYNAMICS AX SOLUTION ARCHITECT MANUAL DIFFERENTIAL Routine 08/08/2024 9 :43 AM DYNAMICS AX SOLUTION ARCHITECT BILIRUBIN, DIRECT Routine 08/08/2024 9:4 3 AM DYNAMICS AX SOLUTION ARCHITECT MAGNESIUM Routine 08/08/2024 9:43 AM DYNAMICS AX SOLUTION ARCHITECT COMPREHENSIVE METABOLIC PANEL Routine 08/08/2024 9:43 AM DYNAMICS AX SOLUTION ARCHITECT CBC WITH AUTO DIFFERENTIAL Routine 08/08/2024 9:43 AM DYNAMICS AX SOLUTION ARCHITECT EGFR Routine 08/07/2024 3:34 AM DYNAMICS AX SOLUTION ARCHITECT BILIRUBIN, DIRECT Routine 08/07/2024 3:3 4 AM DYNAMICS AX SOLUTION ARCHITECT DIFFERENTIAL AUTO Routine 08/07/2024 3:3 4 AM DYNAMICS AX SOLUTION ARCHITECT PHOSPHORUS Routine 08/07/2024 3:34 AM DYNAMICS AX SOLUTION ARCHITECT MAGNESIUM Routine 08/07/2024 3:34 AM DYNAMICS AX SOLUTION ARCHITECT COMPREHENSIVE METABOLIC PANEL Routine 08/07/2024 3:34 AM DYNAMICS AX SOLUTION ARCHITECT CBC WITH AUTO DIFFERENTIAL Routine 08/07/2024 3:34 AM DYNAMICS AX SOLUTION ARCHITECT EGFR Routine 08/06/2024 4:45 AM DYNAMICS AX SOLUTION ARCHITECT BILIRUBIN, DIRECT Routine 08/06/2024 4:4 5 AM DYNAMICS AX SOLUTION ARCHITECT DIFFERENTIAL AUTO Routine 08/06/2024 4:4 5 AM DYNAMICS AX SOLUTION ARCHITECT MAGNESIUM Routine 08/06/2024 4:45 AM DYNAMICS AX SOLUTION ARCHITECT COMPREHENSIVE METABOLIC PANEL Routine 08/06/2024 4:45 AM DYNAMICS AX SOLUTION ARCHITECT CBC WITH AUTO DIFFERENTIAL Routine 08/06/2024 4:45 AM DYNAMICS AX SOLUTION ARCHITECT ETHANOL Routine 08/06/2024 4:45 AM DYNAMICS AX SOLUTION ARCHITECT EGFR STAT 08/05/2024 10:48 AM DYNAMICS AX SOLUTION ARCHITECT CBC WITHOUT DIFFERENTIAL STAT 08/05/2024 10:48 AM DYNAMICS AX SOLUTION ARCHITECT DRUGS OF ABUSE SCREEN, URINE WITHOUT CONFIRMATION STAT 08/05/2024 10:48 AM DYNAMICS AX SOLUTION ARCHITECT COMPREHENSIVE METABOLIC PANEL STAT 08/05/2024 10:48 AM DYNAMICS AX SOLUTION ARCHITECT HEPATITIS C ANTIBODY Routine 04/27/2024 2:14 AM CDT from Last 3 Months or Most Recently Relevant to Health Maintenance Results * eGFR (08/16/2024 5:17 AM DYNAMICS AX SOLUTION ARCHITECT) eGFR >90 >=60 mL/min/1. 73 m2 Comment: [...] last reviewed 2021. Blood 08/16/2024 5:17 AM DYNAMICS AX SOLUTION ARCHITECT 08/16/2024 6:29 AM DYNAMICS AX SOLUTION ARCHITECT us Matthieu Bautista MD LAB BLOOD ORDERABLES Final Resu lt [facility] [place]) 1 [facility] [place] [address] * (ABNORMAL) CBC with auto differential (08/16/2024 5:17 AM DYNAMICS AX SOLUTION ARCHITECT) Pathologist [facility] WBC 10.9(H) 3.8 - 9.9 K/cumm Hgb [...] 31.3 27.1 - 33.3 pg [facility] ([place]) MCHC 33.3 32.3 - 35.7 g/dL [facility] ([place]) RDW CV 12.8 11.1 - 14.9 % [facility] ([place]) RDW SD 44.2 35.7 - 48.1 fL [facility] ([place]) NRBC abs 0.00 0.00 - 0.01 K/cumm [facility] ([place]) Blood 08/16/2024 5:17 AM DYNAMICS AX SOLUTION ARCHITECT 08/16/2024 6:29 AM DYNAMICS AX SOLUTION ARCHITECT us Matthieu Bautista MD LAB BLOOD ORDERABLES Final Resu lt [facility] ([place]) 1 [facility] [place] [address] * (ABNORMAL) Manual Differential (08/16/2024 5:17 AM DYNAMICS AX SOLUTION ARCHITECT) Pathologist [facility] Differential Manual Cells Counted 100 [facility] [...] ([place]) RBC morphology Consistent with RBC Indicies [facility] ([place]) Platelet estimate Adequate CE [facility] ([place]) Blood 08/16/2024 5:17 AM DYNAMICS AX SOLUTION ARCHITECT 08/16/2024 6:29 AM DYNAMICS AX SOLUTION ARCHITECT us Matthieu Bautista MD LAB BLOOD ORDERABLES Final Resu lt [facility] ([place]) 1 [facility] [place] [employer] [place] [address] * Magnesium (08/16/2024 5:17 AM DYNAMICS AX SOLUTION ARCHITECT) Pathologist [facility] Magnesium 1.4 1.4 - 2.5 mg/dL Blood 08/16/2024 5:17 AM DYNAMICS AX SOLUTION ARCHITECT 08/16/2024 6:29 AM DYNAMICS AX SOLUTION ARCHITECT Matthieu Bautista MD LAB BLOOD ORDERABLES Final Resu lt Performing Organization Address City/[facility]/ZIP Co de Phone Number [facility] ([place]) 1 [facility] [place] [address] * Bilirubin, direct (08/16/2024 5:17 AM DYNAMICS AX SOLUTION ARCHITECT) [facility] Bilirubin, direct 0.1 0.1 - 0.3 mg/dL Blood 08/16/2024 5:17 AM DYNAMICS AX SOLUTION ARCHITECT 08/16/2024 6:29 AM DYNAMICS AX SOLUTION ARCHITECT Matthieu Bautista MD LAB BLOOD ORDERABLES Final Resu lt Performing Organization Address City/[facility]/ZIP Co de Phone Number [facility] ([place]) 1 [place] [address] * (ABNORMAL) Comprehensive metabolic panel (08/16/2024 5:17 AM DYNAMICS AX SOLUTION ARCHITECT) [facility] Sodium 136 135 - 145 mmol/L Potassium, pl 3.6 3.3 - 4.9 mmol/L [facility] ([place]) Chloride 101 97 - 110 mmol/L [facility] ([place]) CO2 23 22 - 32 mmol/L [facility] ([place]) Anion gap 12 2 - 15 mmol/L [facility] ([place]) BUN 6 6 - 25 mg/dL [facility] ([place]) Creatinine 0.56(L) 0.80 - 1.30 mg/dL [facility] ([place]) Glucose 126 70 - 199 mg/dL [facility] ([place]) Comment: Interpretive Data Fasting glucose >/= [...] 50 Units/L [facility] ([place]) Blood 08/16/2024 5:1 7 AM DYNAMICS AX SOLUTION ARCHITECT 08/16/2024 6:29 AM DYNAMICS AX SOLUTION ARCHITECT us Matthieu Bautista MD LAB BLOOD ORDERABLES Final Resu lt [facility] ([place]) 1 [facility] Department [place] [address] * eGFR (08/15/2024 12:22 PM DYNAMICS AX SOLUTION ARCHITECT) eGFR >90 >=60 mL/min/1. 73 m2 Comment: [...] reviewed 2021. Blood 08/15/2024 12:2 2 PM DYNAMICS AX SOLUTION ARCHITECT 08/15/2024 12:36 PM DYNAMICS AX SOLUTION ARCHITECT us Matthieu Bautista MD LAB BLOOD ORDERABLES Final Resu lt [facility] ([place]) 1 [facility] [place] [address] * (ABNORMAL) Differential, auto (08/15/2024 12:22 PM DYNAMICS AX SOLUTION ARCHITECT) Neutrophil abs 5.9 1.5 - 6.5 K/cumm [...] on 2017. Blood 08/15/2024 12:2 2 PM DYNAMICS AX SOLUTION ARCHITECT 08/15/2024 12:36 PM DYNAMICS AX SOLUTION ARCHITECT us Matthieu Bautista MD LAB BLOOD ORDERABLES Final Resu lt [facility] ([place]) 1 [facility] [place] [address] * (ABNORMAL) CBC with auto differential (08/15/2024 12:22 PM DYNAMICS AX SOLUTION ARCHITECT) WBC 10.8(H) 3.8 - 9.9 K/cumm Hgb [...] ([place]) MCHC 33.8 32.3 - 35.7 g/dL [facility] ([place]) RDW CV 12.8 11.1 - 14.9 % [facility] ([place]) RDW SD 43.8 35.7 - 48.1 fL [facility] ([place]) NRBC abs 0.00 0.00 - 0.01 K/cumm [facility] ([place]) Blood 08/15/2024 12:2 2 PM DYNAMICS AX SOLUTION ARCHITECT 08/15/2024 12:36 PM DYNAMICS AX SOLUTION ARCHITECT Matthieu Bautista MD LAB BLOOD ORDERABLES Final Resu lt Performing Organization Address City/[facility] Co de Phone Number [facility] ([place]) 1 [facility] [employer] [place] [address] * Magnesium (08/15/2024 12:22 PM DYNAMICS AX SOLUTION ARCHITECT) Magnesium 1.5 1.4 - 2.5 mg/dL Blood 08/15/2024 12:2 2 PM DYNAMICS AX SOLUTION ARCHITECT 08/15/2024 12:36 PM DYNAMICS AX SOLUTION ARCHITECT Narrative [facility] ([place]) - 08/15/2024 12:55 PM DYNAMICS AX SOLUTION ARCHITECT pt RN said please do not disturb due to having a rough night and not being in best mood Matthieu Bautista MD LAB BLOOD ORDERABLES Final Resu lt Performing Organization Address City/[facility] Co de Phone Number [facility] ([place]) 1 [facility] [place] [address] * Bilirubin, direct (08/15/2024 12:22 PM DYNAMICS AX SOLUTION ARCHITECT) Bilirubin, direct 0.1 0.1 - 0.3 mg/dL Blood 08/15/2024 12:2 2 PM DYNAMICS AX SOLUTION ARCHITECT 08/15/2024 12:36 PM DYNAMICS AX SOLUTION ARCHITECT Matthieu Bautista MD LAB BLOOD ORDERABLES Final Resu lt Performing Organization Address City/[facility] Co de Phone Number [facility] ([place]) 1 [facility] [place] [address] * (ABNORMAL) Comprehensive metabolic panel (08/15/2024 12:22 PM DYNAMICS AX SOLUTION ARCHITECT) Sodium 133(L) 135 - 145 mmol/L Potassium, pl 4.0 3.3 - 4.9 mmol/L [facility] ([place]) Chloride 100 97 - 110 mmol/L [facility] ([place]) CO2 22 22 - 32 mmol/L [facility] ([place]) Anion gap 11 2 - 15 mmol/L [facility] ([place]) BUN 8 6 - 25 mg/dL [facility] ([place]) Creatinine 0.57(L) 0.80 - 1.30 [...] [facility] ([place]) Blood 08/15/2024 12:2 2 PM DYNAMICS AX SOLUTION ARCHITECT 08/15/2024 12:36 PM DYNAMICS AX SOLUTION ARCHITECT Matthieu Bautista MD LAB BLOOD ORDERABLES Final Resu lt Performing Organization Address City/[facility] Co de Phone Number [facility] ([place]) 1 [facility] [place] [employer] [place] [address] * eGFR (08/14/2024 9:53 AM DYNAMICS AX SOLUTION ARCHITECT) eGFR >90 >=60 mL/min/1. 73 m2 Comment: [...] last reviewed 2021. Blood 08/14/2024 9:53 AM DYNAMICS AX SOLUTION ARCHITECT 08/14/2024 10:29 AM DYNAMICS AX SOLUTION ARCHITECT Matthieu Bautista MD LAB BLOOD ORDERABLES Final Resu lt Performing Organization Address City/[facility]/ZIP Co de Phone Number [facility] ([place]) 1 [facility] [place] [address] * (ABNORMAL) Differential, auto (08/14/2024 9:53 AM DYNAMICS AX SOLUTION ARCHITECT) Neutrophil abs 4.4 1.5 - 6.5 K/cumm Imm gran abs 0.4(H) 0.0 - 0.1 K/cumm [facility] ([place]) Lymphocyte abs 2.3 0.8 - 3.3 K/cumm [...] revised on 2017. Blood 08/14/2024 9:53 AM DYNAMICS AX SOLUTION ARCHITECT 08/14/2024 10:29 AM DYNAMICS AX SOLUTION ARCHITECT us Matthieu Bautista MD LAB BLOOD ORDERABLES Final Resu lt [facility] ([place]) 1 [facility] [place] [address] * (ABNORMAL) CBC with auto differential (08/14/2024 9:53 AM DYNAMICS AX SOLUTION ARCHITECT) WBC 9.0 3.8 - 9.9 K/cumm Hgb [...] RDW SD 43.6 35.7 - 48.1 fL [facility] ([place]) NRBC abs 0.00 0.00 - 0.01 K/cumm [facility] ([place]) Blood 08/14/2024 9:53 AM DYNAMICS AX SOLUTION ARCHITECT 08/14/2024 10:29 AM DYNAMICS AX SOLUTION ARCHITECT us Matthieu Bautista MD LAB BLOOD ORDERABLES Final Resu lt [facility] ([place]) 1 [facility] [place] [address] * Magnesium (08/14/2024 9:53 AM DYNAMICS AX SOLUTION ARCHITECT) [facility] Magnesium 1.6 1.4 - 2.5 mg/dL Blood 08/14/2024 9:53 AM DYNAMICS AX SOLUTION ARCHITECT 08/14/2024 10:29 AM DYNAMICS AX SOLUTION ARCHITECT us Matthieu Bautista MD LAB BLOOD ORDERABLES Final Resu lt [facility] ([place]) 1 [facility] [place] [address] * Bilirubin, direct (08/14/2024 9:53 AM DYNAMICS AX SOLUTION ARCHITECT) Bilirubin, direct 0.2 0.1 - 0.3 mg/dL Blood 08/14/2024 9:53 AM DYNAMICS AX SOLUTION ARCHITECT 08/14/2024 10:29 AM DYNAMICS AX SOLUTION ARCHITECT Matthieu Bautista MD LAB BLOOD ORDERABLES Final Resu lt Performing Organization Address City/[facility]/ZIP Co de Phone Number [facility] ([place]) 1 [facility] [place] [employer] [address] * (ABNORMAL) Comprehensive metabolic panel (08/14/2024 9:53 AM DYNAMICS AX SOLUTION ARCHITECT) Sodium 133(L) 135 - 145 mmol/L Potassium, pl 3.5 3.3 - 4.9 mmol/L [facility] ([place]) Chloride 101 97 - 110 mmol/L [facility] ([place]) CO2 21(L) 22 - 32 mmol/L [facility] ([place]) Anion gap 11 2 - 15 mmol/L [facility] ([place]) BUN 5(L) 6 - 25 mg/dL [facility] ([place]) Creatinine 0.55(L) 0.80 - 1.30 mg/dL [facility] ([place]) Glucose 164 70 - 199 mg/dL [facility] ([place]) Comment: Interpretive Data Fasting glucose >/= [...] [facility] ([place]) Blood 08/14/2024 9:53 AM DYNAMICS AX SOLUTION ARCHITECT 08/14/2024 10:29 AM DYNAMICS AX SOLUTION ARCHITECT us Matthieu Bautista MD LAB BLOOD ORDERABLES Final [facility] lt [facility] 1 [facility] [place] [address] * eGFR (08/13/2024 3:33 AM DYNAMICS AX SOLUTION ARCHITECT) eGFR >90 >=60 mL/min/1. 73 m2 Comment: [...] last reviewed 2021. Blood 08/13/2024 3:33 AM DYNAMICS AX SOLUTION ARCHITECT 08/13/2024 3:57 AM DYNAMICS AX SOLUTION ARCHITECT us Matthieu Bautista MD LAB BLOOD ORDERABLES Final Resu lt [facility] ([place]) 1 [facility] [place] [address] * (ABNORMAL) Differential, auto (08/13/2024 3:33 AM DYNAMICS AX SOLUTION ARCHITECT) Neutrophil abs 5.7 1.5 - 6.5 K/cumm [...] revised on 2017. Monocyte pct 17.3 % [facility] ([place]) Comment: Interpretive Data [...] revised on 2017. Blood 08/13/2024 3:33 AM DYNAMICS AX SOLUTION ARCHITECT 08/13/2024 3:57 AM DYNAMICS AX SOLUTION ARCHITECT us Matthieu Bautista MD LAB BLOOD ORDERABLES Final Resu lt [facility] ([place]) 1 [facility] [place] [address] * (ABNORMAL) CBC with auto differential (08/13/2024 3:33 AM DYNAMICS AX SOLUTION ARCHITECT) WBC 10.0(H) 3.8 - 9.9 K/cumm Hgb 12.2(L) 13.0 - 17.5 g/dL [facility] ([place]) [...] [facility] ([place]) Blood 08/13/2024 3:33 AM DYNAMICS AX SOLUTION ARCHITECT 08/13/2024 3:57 AM DYNAMICS AX SOLUTION ARCHITECT Matthieu Bautista MD LAB BLOOD ORDERABLES Final Resu lt Performing Organization Address City/[facility]/ZIP Co de Phone Number [facility] ([place]) [address] [place] [address] * Magnesium (08/13/2024 3:33 AM DYNAMICS AX SOLUTION ARCHITECT) Magnesium 1.9 1.4 - 2.5 mg/dL Blood 08/13/2024 3:33 AM DYNAMICS AX SOLUTION ARCHITECT 08/13/2024 3:57 AM DYNAMICS AX SOLUTION ARCHITECT Matthieu Bautista MD LAB BLOOD ORDERABLES Final Resu lt Performing Organization Address [facility] Co de Phone Number LOUANN LR ([place]) [address] [place] [address] * Bilirubin, direct (08/13/2024 3:33 AM DYNAMICS AX SOLUTION ARCHITECT) Pathologist [facility] Bilirubin, direct 0.3 0.1 - 0.3 mg/dL Blood 08/13/2024 3:33 AM DYNAMICS AX SOLUTION ARCHITECT 08/13/2024 3:57 AM DYNAMICS AX SOLUTION ARCHITECT Matthieu Bautista MD LAB BLOOD ORDERABLES Final Resu lt Performing Organization Address [facility] Co de Phone Number LOUANN LR ([place]) [address] [place] [address] * (ABNORMAL) Comprehensive metabolic panel (08/13/2024 3:33 AM DYNAMICS AX SOLUTION ARCHITECT) Sodium 135 135 - 145 mmol/L Potassium, pl 3.8 3.3 - 4.9 mmol/L [facility] ([place]) Chloride 102 97 - 110 mmol/L [facility] ([place]) CO2 19(L) 22 - 32 mmol/L [facility] ([place]) Anion gap 14 2 - 15 mmol/L [facility] ([place]) BUN 10 6 - 25 mg/dL [facility] ([place]) Creatinine 0.62(L) 0.80 - 1.30 mg/dL [...] ([place]) AST 33 10 - 50 Units/L [facility] ([place]) Blood 08/13/2024 3:33 AM DYNAMICS AX SOLUTION ARCHITECT 08/13/2024 3:57 AM DYNAMICS AX SOLUTION ARCHITECT us Matthieu Bautista MD LAB BLOOD ORDERABLES Final Resu lt [facility] ([place]) 1 [facility] [place] [address] * eGFR (08/12/2024 10:35 AM DYNAMICS AX SOLUTION ARCHITECT) eGFR >90 >=60 mL/min/1. 73 m2 Comment: [...] reviewed 2021. Blood 08/12/2024 10:3 5 AM DYNAMICS AX SOLUTION ARCHITECT 08/12/2024 10:54 AM DYNAMICS AX SOLUTION ARCHITECT us Luis Angel Rick MD LAB BLOOD ORDERABLES Final Re sult Performing Organization Address [facility] de Phone Number L[facility]ANN LR ([place]) 1 [facility] [place] [address] * Magnesium (08/12/2024 10:35 AM DYNAMICS AX SOLUTION ARCHITECT) Magnesium 1.7 1.4 - 2.5 mg/dL Blood 08/12/2024 10:3 5 AM DYNAMICS AX SOLUTION ARCHITECT 08/12/2024 10:54 AM DYNAMICS AX SOLUTION ARCHITECT us Luis Angel Rick MD LAB BLOOD ORDERABLES Final Re sult Performing Organization Address [facility] de Phone Number L[facility]ANN LR ([place]) 1 [facility] [place] [address] * Bilirubin, direct (08/12/2024 10:35 AM DYNAMICS AX SOLUTION ARCHITECT) Bilirubin, direct 0.3 0.1 - 0.3 mg/dL Blood 08/12/2024 10:3 5 AM DYNAMICS AX SOLUTION ARCHITECT 08/12/2024 10:54 AM DYNAMICS AX SOLUTION ARCHITECT us Luis Angel Rick MD LAB BLOOD ORDERABLES Final Re sult L[facility] LR ([place]) 1 [facility] [place] [address] * (ABNORMAL) Comprehensive metabolic panel (08/12/2024 10:35 AM DYNAMICS AX SOLUTION ARCHITECT) Sodium 134(L) 135 - 145 mmol/L Potassium, pl 3.8 3.3 - 4.9 mmol/L [facility] ([place]) Chloride 101 97 - 110 mmol/L [facility] ([place]) CO2 22 22 - 32 mmol/L [facility] ([place]) Anion gap 11 2 - 15 mmol/L [facility] ([place]) BUN 14 6 - 25 mg/dL [facility] ([place]) Creatinine 0.71(L) 0.80 - 1.30 mg/dL [facility] ([place]) Glucose 96 70 - 199 mg/dL [facility] ([place]) [...] [facility] ([place]) Blood 08/12/2024 10:3 5 AM DYNAMICS AX SOLUTION ARCHITECT 08/12/2024 10:54 AM DYNAMICS AX SOLUTION ARCHITECT us Luis Angel Rick MD LAB BLOOD ORDERABLES Final Re sult [facility] LR ([place]) 1 [facility] [place] [address] * (ABNORMAL) Differential, auto (08/12/2024 10:34 AM DYNAMICS AX SOLUTION ARCHITECT) Neutrophil abs 4.7 1.5 - 6.5 K/cumm Imm gran abs 0.1 0.0 - 0.1 K/cumm [facility] ([place]) Lymphocyte abs 1.8 0.8 - 3.3 K/cumm [facility] ([place]) Monocyte abs 1.9(H) 0.2 - 0.8 K/cumm [facility] ([place]) Eosinophil abs 0.1 0.0 - 0.5 K/cumm [facility] ([place]) Basophil abs 0.1 0.0 - 0.1 K/cumm [facility] ([place]) Neutrophil pct 54.0 % [facility] ([place]) Comment: Interpretive Data Percent cell count reference ranges are not reported, since discordance with absolute values may lead to misinterpretation of CBC data. Current Interpretive Data was last revised on 2017. Imm gran pct 1.0 % [facility] ([place]) Comment: Interpretive Data Percent cell count reference [...] 2017. Monocyte pct 22.2 % [facility] ([place]) Comment: Interpretive Data Percent cell count reference [...] on 2017. Blood 08/12/2024 10:3 4 AM DYNAMICS AX SOLUTION ARCHITECT 08/12/2024 10:38 AM DYNAMICS AX SOLUTION ARCHITECT us Matthieu Bautista MD LAB BLOOD ORDERABLES Final Resu lt [facility] ([place]) 1 [facility] [place] [address] * (ABNORMAL) CBC with auto differential (08/12/2024 10:34 AM DYNAMICS AX SOLUTION ARCHITECT) WBC 8.7 3.8 - 9.9 K/cumm Hgb 12.5(L) 13.0 - 17.5 g/dL [facility] ([place]) Hct 37.1(L) 38.9 - 50.3 % [facility] ([place]) Plt 141(L) 150 - 400 K/cumm [facility] ([place]) MPV 9.7 9.1 - 12.3 fL [facility] ([place]) RBC 3.99(L) 4.30 - 5.80 M/cumm [facility] ([place]) MCV 93.0 81.3 - 96.4 fL [facility] ([place]) MCH 31.3 27.1 - 33.3 pg [facility] ([place]) MCHC 33.7 32.3 - 35.7 g/dL [facility] ([place]) RDW CV 13.3 11.1 - 14.9 % [facility] ([place]) RDW SD 45.5 35.7 - 48.1 fL [facility] ([place]) NRBC abs 0.00 0.00 - 0.01 K/cumm [facility] ([place]) Blood 08/12/2024 10:3 4 AM DYNAMICS AX SOLUTION ARCHITECT 08/12/2024 10:38 AM DYNAMICS AX SOLUTION ARCHITECT Matthieu Bautista MD LAB BLOOD ORDERABLES Final Resu lt Performing Organization Address City/[facility]/ZIP Co de Phone Number LOUANN Scott[place]) [address] [place] [address] [place] [address] * Infection Prevention MRSA Only (Staphylococcus aureus) PCR Nasal (08/12/2024 9:50 AM DYNAMICS AX SOLUTION ARCHITECT) PCR Scrn, Methicillin resistant Staphylococcus aureus (MRSA) Not Detected Not Detected Comment: Interpretive Data Testing performed using Nucleic Acid Amplification with the The [employer] Xpert MRSA NxG Assay. This assay detects target DNA from mecA, mecC and the SCCmec insertion site of Staphylococcus aureus using Real-Time PCR and has been cleared by the FDA. Performance characteristics have been verified by the [facility]. Current Interpretive Data was last revised on 2022 Nasal 08/12/2024 9:50 AM DYNAMICS AX SOLUTION ARCHITECT 08/12/2024 10:14 AM DYNAMICS AX SOLUTION ARCHITECT Latrell Keith MD LAB MICROBIOLOGY - GENERAL ORDERABLES Final Result Performing Organization Address City/[facility] Co de Phone Number LOUANN LR ([place]) [address] [place] [address] [place] [address] * Lactate (08/12/2024 9:17 AM DYNAMICS AX SOLUTION ARCHITECT) Lactate 1.0 0.7 - 2.0 mmol/L Blood 08/12/2024 9:17 AM DYNAMICS AX SOLUTION ARCHITECT 08/12/2024 9:46 AM DYNAMICS AX SOLUTION ARCHITECT Luis Angel Rick MD LAB BLOOD ORDERABLES Final Re sult Performing Organization Address City/[facility]/ZIP Co de Phone Number L[facility]ANN LR ([place]) [address] [place] [address] [place] [employer] [place] [address] * Lactate (08/11/2024 3:56 PM DYNAMICS AX SOLUTION ARCHITECT) Lactate 1.1 0.7 - 2.0 mmol/L Blood 08/11/2024 3:56 PM DYNAMICS AX SOLUTION ARCHITECT 08/11/2024 4:00 PM DYNAMICS AX SOLUTION ARCHITECT Luis Angel Rick MD LAB BLOOD ORDERABLES Final Re sult [facility] LR ([place]) 1 [facility] [place] [employer] [place] [address] * eGFR (08/11/2024 3:56 PM DYNAMICS AX SOLUTION ARCHITECT) eGFR 83 >=60 mL/min/1. 73 m2 Comment: [...] last reviewed 2021. Blood 08/11/2024 3:56 PM DYNAMICS AX SOLUTION ARCHITECT 08/11/2024 4:00 PM DYNAMICS AX SOLUTION ARCHITECT Luis Angel Rick MD LAB BLOOD ORDERABLES Final Re sult [facility] LR ([place]) 1 [facility] [place] [employer] [place] [address] * (ABNORMAL) Differential, auto (08/11/2024 3:56 PM DYNAMICS AX SOLUTION ARCHITECT) Neutrophil abs 2.9 1.5 - 6.5 K/cumm [...] revised on 2017. Blood 08/11/2024 3:56 PM DYNAMICS AX SOLUTION ARCHITECT 08/11/2024 4:00 PM DYNAMICS AX SOLUTION ARCHITECT Luis Angel Rick MD LAB BLOOD ORDERABLES Final Re sult [facility] ([place]) 1 [facility] [place] [address] * (ABNORMAL) CBC with auto differential (08/11/2024 3:56 PM DYNAMICS AX SOLUTION ARCHITECT) WBC 6.3 3.8 - 9.9 K/cumm Hgb [...] 14.9 % [facility] ([place]) RDW SD 48.8(H) 35.7 - 48.1 fL [facility] ([place]) NRBC abs 0.00 0.00 - 0.01 K/cumm [facility] ([place]) Blood 08/11/2024 3:56 PM DYNAMICS AX SOLUTION ARCHITECT 08/11/2024 4:00 PM DYNAMICS AX SOLUTION ARCHITECT Luis Angel Rick MD LAB BLOOD ORDERABLES Final Re sult LOUANN LR ([place]) 1 [facility] [employer] [place] [employer] [address] * Blood culture Blood (08/11/2024 3:56 PM DYNAMICS AX SOLUTION ARCHITECT) Report Final Report: No growth Comment:Testing performed by : [facility], 1 [facility] [place]., [address] Blood 08/11/2024 3:56 PM DYNAMICS AX SOLUTION ARCHITECT 08/11/2024 6:37 PM DYNAMICS AX SOLUTION ARCHITECT Narrative LOUANN LR ([place]) - 08/16/2024 7:01 AM DYNAMICS AX SOLUTION ARCHITECT From a different site than #1. Collection->Peripheral [...] performance characteristics have been verified by the [facility] Microbiology Laboratory. For questions about this culture, contact the Microbiology Laboratory at [phone]. Interpretive data was last revised on 24. Luis Angel Rick MD LAB MICROBIOLOGY - GENERAL OR DERABLES Final Result LOUANN LR ([place]) 1 [facility] Department [place] [address] * Blood culture Blood (08/11/2024 3:56 PM DYNAMICS AX SOLUTION ARCHITECT) Report Final Report: No growth Comment:Testing performed by : [facility], 1 [place]., [address] Blood 08/11/2024 3:56 PM DYNAMICS AX SOLUTION ARCHITECT 08/11/2024 6:37 PM DYNAMICS AX SOLUTION ARCHITECT Narrative L[facility]ANN BE ([place]) - 08/16/2024 7:01 AM DYNAMICS AX SOLUTION ARCHITECT Collection->Peripheral 1. Blood cultures are incubated for [...] performance characteristics have been verified by the [facility]biology [facility]. For questions about this culture, contact the Microbiology Laboratory at [phone]. Interpretive data was last revised on 24. Luis Angel Rick MD LAB MICROBIOLOGY - GENERAL OR DERABLES Final Result [facility]ANN [facility] ([place]) 1 [facility] [place] [address] * (ABNORMAL) Comprehensive metabolic panel (08/11/2024 3:56 PM DYNAMICS AX SOLUTION ARCHITECT) Sodium 134(L) 135 - 145 mmol/L Potassium, pl 4.2 3.3 - 4.9 mmol/L [facility] ([place]) Chloride 94(L) 97 - 110 mmol/L [facility] ([place]) CO2 25 22 - 32 mmol/L [facility] ([place]) Anion gap 15 2 - 15 mmol/L [facility] ([place]) BUN 27(H) 6 - 25 mg/dL [facility]) Creatinine 1.09 0.80 - 1.30 mg/dL [facility] ([place]) Glucose 101 70 - 199 mg/dL [facility] ([place]) Comment: Interpretive Data Fasting glucose [...] Slightly Hemolyzed Specimen Blood 08/11/2024 3:56 PM DYNAMICS AX SOLUTION ARCHITECT 08/11/2024 4:00 PM DYNAMICS AX SOLUTION ARCHITECT us Luis Angel Rick MD LAB BLOOD ORDERABLES Final Re sult [facility] ([place]) 1 [facility] Department [place] [address] * (ABNORMAL) Differential, auto (08/11/2024 10:12 AM DYNAMICS AX SOLUTION ARCHITECT) Neutrophil abs 2.8 1.5 - 6.5 K/cumm [...] on 2017. Blood 08/11/2024 10:1 2 AM DYNAMICS AX SOLUTION ARCHITECT 08/11/2024 10:19 AM DYNAMICS AX SOLUTION ARCHITECT us Matthieu Bautista MD LAB BLOOD ORDERABLES Final Resu lt [facility]ANN BE ([place]) 1 [facility] [place] [address] * (ABNORMAL) CBC with auto differential (08/11/2024 10:12 AM DYNAMICS AX SOLUTION ARCHITECT) WBC 5.5 3.8 - 9.9 K/cumm Hgb [...] - 0.01 K/cumm [facility] ([place]) Blood 08/11/2024 10:1 2 AM DYNAMICS AX SOLUTION ARCHITECT 08/11/2024 10:19 AM DYNAMICS AX SOLUTION ARCHITECT us Matthieu Bautista MD LAB BLOOD ORDERABLES Final Resu lt LOUANN LR ([place]) 1 [facility] [place] [address] * CT Abdomen Pelvis W Contrast (08/11/2024 7:55 AM DYNAMICS AX SOLUTION ARCHITECT) Anatomical Region Laterality Modality Body N/A Computed Tomogra phy 08/11/2024 8:27 AM DYNAMICS AX SOLUTION ARCHITECT Narrative 08/11/2024 8:59 AM DYNAMICS AX SOLUTION ARCHITECT EXAM DESCRIPTION: CT ABDOMEN PELVIS W CONTRAST [...] Marcelino Fregoso M.D. MZ: MZ Report ID: [id number] Reading Location: [id number] Procedure Note Marcelino Fregoso MD - 08/11/2024 [...] Marcelino Fregoso M.D. MZ: JAJA Report ID: [id number] Reading Location: [place] [address] Matthieu Bautista MD IMG CT PROCEDURES Final Result * Lactate (08/11/2024 6:40 AM DYNAMICS AX SOLUTION ARCHITECT) Lactate 1.6 0.7 - 2.0 mmol/L Blood 08/11/2024 6:40 AM DYNAMICS AX SOLUTION ARCHITECT 08/11/2024 6:52 AM DYNAMICS AX SOLUTION ARCHITECT Matthieu Bautista MD LAB BLOOD ORDERABLES Final Resu lt [facility] [place] 1 [facility] [place] [employer] [place] [address] * eGFR (08/11/2024 6:40 AM DYNAMICS AX SOLUTION ARCHITECT) eGFR 69 >=60 mL/min/1. 73 m2 Comment: [...] last reviewed 2021. Blood 08/11/2024 6:40 AM DYNAMICS AX SOLUTION ARCHITECT 08/11/2024 6:52 AM DYNAMICS AX SOLUTION ARCHITECT us Matthieu Bautista MD LAB BLOOD ORDERABLES Final Resu lt [facility]ANN [facility] ([place]) 1 [facility] [place] [address] * (ABNORMAL) Differential, auto (08/11/2024 6:40 AM DYNAMICS AX SOLUTION ARCHITECT) Neutrophil abs 2.7 1.5 - 6.5 K/cumm Imm gran abs 0.0 0.0 - 0.1 K/cumm [facility] ([place]) Lymphocyte abs 1.5 0.8 - 3.3 K/cumm [facility] ([place]) Monocyte abs 1.0(H) 0.2 - 0.8 K/cumm [facility] ([place]) Eosinophil abs 0.1 0.0 - 0.5 K/cumm [facility] ([place]) Basophil abs 0.0 0.0 - 0.1 K/cumm [facility] ([place]) Neutrophil pct 51.1 % [facility] ([place]) Comment: Interpretive [...] 2017. Monocyte pct 18.0 % [facility] ([place]) Comment: Interpretive Data Percent cell count reference ranges are not reported, since discordance with absolute values may lead to misinterpretation of CBC data. Current Interpretive Data was last revised on 2017. Eosinophil pct 2.1 % [facility] ([place]) Comment: Interpretive [...] revised on 2017. Blood 08/11/2024 6:40 AM DYNAMICS AX SOLUTION ARCHITECT 08/11/2024 6:52 AM DYNAMICS AX SOLUTION ARCHITECT us Matthieu Bautista MD LAB BLOOD ORDERABLES Final Resu lt [facility]ANN BE ([place]) 1 [facility] [place] [address] * (ABNORMAL) CBC with auto differential (08/11/2024 6:40 AM DYNAMICS AX SOLUTION ARCHITECT) WBC 5.3 3.8 - 9.9 K/cumm Hgb [...] [facility] ([place]) Blood 08/11/2024 6:40 AM DYNAMICS AX SOLUTION ARCHITECT 08/11/2024 6:52 AM DYNAMICS AX SOLUTION ARCHITECT Matthieu Bautista MD LAB BLOOD ORDERABLES Final Resu lt [facility] ([place]) 1 [facility] [employer] [place] [address] * Magnesium (08/11/2024 6:40 AM DYNAMICS AX SOLUTION ARCHITECT) Magnesium 1.6 1.4 - 2.5 mg/dL Blood 08/11/2024 6:40 AM DYNAMICS AX SOLUTION ARCHITECT 08/11/2024 6:52 AM DYNAMICS AX SOLUTION ARCHITECT Matthieu Bautista MD LAB BLOOD ORDERABLES Final Resu lt [facility] ([place]) 1 [facility] [employer] [place] [address] * Bilirubin, direct (08/11/2024 6:40 AM DYNAMICS AX SOLUTION ARCHITECT) Bilirubin, direct 0.2 0.1 - 0.3 mg/dL Blood 08/11/2024 6:40 AM DYNAMICS AX SOLUTION ARCHITECT 08/11/2024 6:52 AM DYNAMICS AX SOLUTION ARCHITECT us Matthieu Bautista MD LAB BLOOD ORDERABLES Final Resu lt [facility] ([place]) 1 [facility] [place] [address] * (ABNORMAL) Comprehensive metabolic panel (08/11/2024 6:40 AM DYNAMICS AX SOLUTION ARCHITECT) Sodium 133(L) 135 - 145 mmol/L Potassium, pl 4.4 3.3 - 4.9 mmol/L [facility] ([place]) Chloride 93(L) 97 - 110 mmol/L [facility] ([place]) CO2 25 22 - 32 mmol/L [facility] ([place]) Anion gap 15 2 - 15 mmol/L [facility] ([place]) BUN 29(H) 6 - 25 mg/dL [facility] ([place]) Creatinine 1.26 0.80 - 1.30 [...] [facility] ([place]) Blood 08/11/2024 6:40 AM DYNAMICS AX SOLUTION ARCHITECT 08/11/2024 6:52 AM DYNAMICS AX SOLUTION ARCHITECT us Matthieu Bautista MD LAB BLOOD ORDERABLES Final Resu lt [facility] ([place]) 1 [facility] [place] [address] * XR Abdomen 1 View AP (08/11/2024 12:56 AM DYNAMICS AX SOLUTION ARCHITECT) Anatomical Region Laterality Modality Body, Abdomen N/A Computed Radiogr aphy 08/11/2024 3:36 AM DYNAMICS AX SOLUTION ARCHITECT Narrative 08/11/2024 3:38 AM DYNAMICS AX SOLUTION ARCHITECT EXAM DESCRIPTION: XR ABDOMEN AP 1 VIEW [...] Hannah Carrillo M.D. SN: SN Report ID: [id number] Reading Location: [id number] Procedure Note Hannah Carrillo MD - 08/11/2024 [...] Hannah Carrillo M.D. SN: SN Report ID: [id number] Reading Location: [place] [address] us Matthieu Bautista MD IMG XR PROCEDURES Final Result * (ABNORMAL) Differential, auto (08/10/2024 10:59 AM DYNAMICS AX SOLUTION ARCHITECT) Neutrophil abs 5.5 1.5 - 6.5 K/cumm [...] on 2017. Blood 08/10/2024 10:5 9 AM DYNAMICS AX SOLUTION ARCHITECT 08/10/2024 11:01 AM DYNAMICS AX SOLUTION ARCHITECT us Luis Angel Rick MD LAB BLOOD ORDERABLES Final Re sult [facility] ([place]) 1 [facility] [place] [address] * (ABNORMAL) CBC with auto differential (08/10/2024 10:59 AM DYNAMICS AX SOLUTION ARCHITECT) WBC 8.6 3.8 - 9.9 K/cumm Hgb [...] ([place]) MCHC 33.2 32.3 - 35.7 g/dL [facility] ([place]) RDW CV 13.8 11.1 - 14.9 % [facility] ([place]) RDW SD 48.6(H) 35.7 - 48.1 fL LOUANN LR ([place]) NRBC abs 0.00 0.00 - 0.01 K/cumm L[facility]ANN LR ([place]) Blood 08/10/2024 10:5 9 AM DYNAMICS AX SOLUTION ARCHITECT 08/10/2024 11:01 AM DYNAMICS AX SOLUTION ARCHITECT Narrative LOUANN LR ([place]) - 08/10/2024 11:11 AM DYNAMICS AX SOLUTION ARCHITECT redraw Luis Angel Rick MD LAB BLOOD ORDERABLES Final Re sult [facility] LR ([place]) 1 [facility] [place] [address] * eGFR (08/10/2024 8:29 AM DYNAMICS AX SOLUTION ARCHITECT) eGFR >90 >=60 mL/min/1. 73 m2 Comment: [...] last reviewed 2021. Blood 08/10/2024 8:29 AM DYNAMICS AX SOLUTION ARCHITECT 08/10/2024 9:10 AM DYNAMICS AX SOLUTION ARCHITECT Matthieu Bautista MD LAB BLOOD ORDERABLES Final Resu lt [facility]ANN LR ([place]) 1 [facility] [place] [address] * Magnesium (08/10/2024 8:29 AM DYNAMICS AX SOLUTION ARCHITECT) Pathologist [facility] Magnesium 1.7 1.4 - 2.5 mg/dL Blood 08/10/2024 8:29 AM DYNAMICS AX SOLUTION ARCHITECT 08/10/2024 9:10 AM DYNAMICS AX SOLUTION ARCHITECT Matthieu Bautista MD LAB BLOOD ORDERABLES Final Resu lt Performing Organization Address [facility] Co de Phone Number LOUANN LR ([place]) 1 [place] [address] * Bilirubin, direct (08/10/2024 8:29 AM DYNAMICS AX SOLUTION ARCHITECT) Pathologist [facility] Bilirubin, direct 0.1 0.1 - 0.3 mg/dL Comment: Hemolysis present. Results may be affected. Slightly Hemolyzed Specimen Blood 08/10/2024 8:29 AM DYNAMICS AX SOLUTION ARCHITECT 08/10/2024 9:10 AM DYNAMICS AX SOLUTION ARCHITECT Matthieu Bautista MD LAB BLOOD ORDERABLES Final Resu lt Performing Organization Address City/[facility]/ZIP Co de Phone Number LOUANN LR ([place]) 1 [facility] [place] [address] * (ABNORMAL) Comprehensive metabolic panel (08/10/2024 8:29 AM DYNAMICS AX SOLUTION ARCHITECT) Sodium 134(L) 135 - 145 mmol/L Potassium, pl 4.1 3.3 - 4.9 mmol/L [facility] ([place]) Chloride 96(L) 97 - 110 mmol/L [facility] ([place]) CO2 24 22 - 32 mmol/L [facility] ([place]) Anion gap 14 2 - 15 mmol/L [facility] ([place]) BUN 12 6 - 25 mg/dL [...] Slightly Hemolyzed Specimen Blood 08/10/2024 8:29 AM DYNAMICS AX SOLUTION ARCHITECT 08/10/2024 9:10 AM DYNAMICS AX SOLUTION ARCHITECT us Matthieu Bautista MD LAB BLOOD ORDERABLES Final Resu lt [facility] ([place]) 1 [facility] Department of Laboratories [place], [place] [id number] * eGFR (08/09/2024 9:13 AM DYNAMICS AX SOLUTION ARCHITECT) eGFR >90 >=60 mL/min/1. 73 m2 Comment: [...] last reviewed 2021. Blood 08/09/2024 9:13 AM DYNAMICS AX SOLUTION ARCHITECT 08/09/2024 9:17 AM DYNAMICS AX SOLUTION ARCHITECT us Matthieu Bautista MD LAB BLOOD ORDERABLES Final Resu lt [facility] ([place]) 1 [facility] [place] [address] * Differential, auto (08/09/2024 9:13 AM DYNAMICS AX SOLUTION ARCHITECT) Neutrophil abs 3.3 1.5 - 6.5 K/cumm [...] Eosinophil pct 2.7 % [facility] ([place]) Comment: Interpretive Data Percent cell count reference ranges are not reported, since discordance with absolute values may lead to misinterpretation of CBC data. Current Interpretive Data was last revised on 2017. Basophil pct 1.6 % [facility] ([place]) Comment: Interpretive Data Percent cell count reference ranges are not reported, since discordance with absolute values may lead to misinterpretation of CBC data. Current Interpretive Data was last revised on 2017. Blood 08/09/2024 9:13 AM DYNAMICS AX SOLUTION ARCHITECT 08/09/2024 9:17 AM DYNAMICS AX SOLUTION ARCHITECT us Matthieu Bautista MD LAB BLOOD ORDERABLES Final Resu lt [facility] LR ([place]) 1 [facility] [place] [address] * (ABNORMAL) CBC with auto differential (08/09/2024 9:13 AM DYNAMICS AX SOLUTION ARCHITECT) WBC 7.0 3.8 - 9.9 K/cumm Hgb 13.1 13.0 - 17.5 g/dL [facility] ([place]) Hct 39.3 38.9 - 50.3 % [facility] ([place]) Plt 133(L) 150 - 400 K/cumm [facility] ([place]) MPV 10.4 9.1 - 12.3 fL [facility] ([place]) RBC 4.17(L) 4.30 - 5.80 M/cumm [facility] ([place]) MCV 94.2 81.3 - 96.4 fL [facility] ([place]) MCH 31.4 27.1 - 33.3 pg [facility] ([place]) MCHC 33.3 32.3 - 35.7 g/dL [facility] ([place]) RDW CV 14.1 11.1 - 14.9 % [facility] ([place]) RDW SD 49.2(H) 35.7 - 48.1 fL [facility] ([place]) NRBC abs 0.00 0.00 - 0.01 K/cumm [facility] ([place]) Blood 08/09/2024 9:13 AM DYNAMICS AX SOLUTION ARCHITECT 08/09/2024 9:17 AM DYNAMICS AX SOLUTION ARCHITECT us Matthieu Bautista MD LAB BLOOD ORDERABLES Final Resu lt Performing Organization Address City/[facility]/ZIP Co de Phone Number [facility] ([place]) 1 [facility] [employer] [place] [employer] [place] [address] * Magnesium (08/09/2024 9:13 AM DYNAMICS AX SOLUTION ARCHITECT) Magnesium 1.6 1.4 - 2.5 mg/dL Blood 08/09/2024 9:13 AM DYNAMICS AX SOLUTION ARCHITECT 08/09/2024 9:17 AM DYNAMICS AX SOLUTION ARCHITECT us Matthieu Bautista MD LAB BLOOD ORDERABLES Final Resu lt Performing Organization Address City/[facility]/ZIP Co de Phone Number [facility] ([place]) 1 [facility] [place] [employer] [place] [address] * Bilirubin, direct (08/09/2024 9:13 AM DYNAMICS AX SOLUTION ARCHITECT) Bilirubin, direct 0.2 0.1 - 0.3 mg/dL Blood 08/09/2024 9:13 AM DYNAMICS AX SOLUTION ARCHITECT 08/09/2024 9:17 AM DYNAMICS AX SOLUTION ARCHITECT us Matthieu Bautista MD LAB BLOOD ORDERABLES Final Resu lt [facility] ([place]) 1 [facility] [place] [address] * (ABNORMAL) Comprehensive metabolic panel (08/09/2024 9:13 AM DYNAMICS AX SOLUTION ARCHITECT) Sodium 134(L) 135 - 145 mmol/L Potassium, pl 4.0 3.3 - 4.9 mmol/L [facility] ([place]) Chloride 95(L) 97 - 110 mmol/L [facility] ([place]) CO2 24 22 - 32 mmol/L [facility] Anion gap 15 2 - 15 mmol/L [facility] BUN 12 6 - 25 mg/dL [facility] ([place]) Creatinine 0.66(L) 0.80 - 1.30 mg/dL [facility] ([place]) Glucose 148 70 - 199 mg/dL [facility] ([place]) [...] [facility] Blood 08/09/2024 9:13 AM DYNAMICS AX SOLUTION ARCHITECT 08/09/2024 9:17 AM DYNAMICS AX SOLUTION ARCHITECT Matthieu Bautista MD LAB BLOOD ORDERABLES Final Resu lt Performing Organization Address City/[facility]/ZIP Co de Phone Number [facility] ([place] 1 [facility] [place] [address] * eGFR (08/08/2024 9:43 AM DYNAMICS AX SOLUTION ARCHITECT) eGFR >90 >=60 mL/min/1. 73 m2 Comment: [...] last reviewed 2021. Blood 08/08/2024 9:43 AM DYNAMICS AX SOLUTION ARCHITECT 08/08/2024 9:45 AM DYNAMICS AX SOLUTION ARCHITECT Matthieu Bautista MD LAB BLOOD ORDERABLES Final Resu lt Performing Organization Address City/[facility]/ZIP Co de Phone Number [facility] ([place] 1 [facility] [place] [address] * (ABNORMAL) CBC with auto differential (08/08/2024 9:43 AM DYNAMICS AX SOLUTION ARCHITECT) Pathologist [facility] WBC 4.1 3.8 - 9.9 K/cumm Hgb 12.6(L) 13.0 - 17.5 g/dL [facility] ([place]) Hct 38.3(L) 38.9 - 50.3 % [...] [facility]) Blood 08/08/2024 9:43 AM DYNAMICS AX SOLUTION ARCHITECT 08/08/2024 9:45 AM DYNAMICS AX SOLUTION ARCHITECT us Matthieu Bautista MD LAB BLOOD ORDERABLES Final Resu lt [facility] ([place]) 1 [facility] [place] [address] * (ABNORMAL) Manual Differential (08/08/2024 9:43 AM DYNAMICS AX SOLUTION ARCHITECT) Differential Manual Cells Counted 100 [facility] [...] revised on 2017. Monocyte pct 1.0 % [facility] ([place]) Comment: Interpretive Data [...] revised on 2017. Basophil pct 1.0 % [facility] ([place]) Comment: Interpretive Data Percent cell count reference ranges are not reported, since discordance with absolute values may lead to misinterpretation of CBC data. Current Interpretive Data was last revised on 2017. Band Neutrophil pct 1.0 0.0 - 5.0 % [facility] ([place]) RBC morphology Consistent with RBC Indicies [facility] ([place]) Platelet estimate Automated Count Confirmed [facility] ([place]) Blood 08/08/2024 9:43 AM DYNAMICS AX SOLUTION ARCHITECT 08/08/2024 9:45 AM DYNAMICS AX SOLUTION ARCHITECT us Matthieu Bautista MD LAB BLOOD ORDERABLES Final Resu lt [facility] ([place]) 1 [facility] [place] [address] * Magnesium (08/08/2024 9:43 AM DYNAMICS AX SOLUTION ARCHITECT) Magnesium 1.7 1.4 - 2.5 mg/dL Blood 08/08/2024 9:43 AM DYNAMICS AX SOLUTION ARCHITECT 08/08/2024 9:45 AM DYNAMICS AX SOLUTION ARCHITECT us Matthieu Bautista MD LAB BLOOD ORDERABLES Final Resu lt [facility] ([place]) 1 [facility] [place] [address] * Bilirubin, direct (08/08/2024 9:43 AM DYNAMICS AX SOLUTION ARCHITECT) Bilirubin, direct 0.2 0.1 - 0.3 mg/dL Blood 08/08/2024 9:43 AM DYNAMICS AX SOLUTION ARCHITECT 08/08/2024 9:45 AM DYNAMICS AX SOLUTION ARCHITECT Matthieu Bautista MD LAB BLOOD ORDERABLES Final Resu lt Performing Organization Address City/[facility]/ZIP Co de Phone Number [facility] ([place]) 1 [facility] [place] [address] * (ABNORMAL) Comprehensive metabolic panel (08/08/2024 9:43 AM DYNAMICS AX SOLUTION ARCHITECT) Sodium 134(L) 135 - 145 mmol/L Potassium, pl 3.8 3.3 - 4.9 mmol/L [facility] ([place]) Chloride 100 97 - 110 mmol/L [facility] ([place]) CO2 22 22 - 32 mmol/L [facility]) Anion gap 13 2 - 15 mmol/L [facility] BUN 11 6 - 25 mg/dL [facility] Creatinine 0.55(L) 0.80 - 1.30 mg/dL [facility] ([place]) Glucose 162 70 - 199 mg/dL [facility] Comment: Interpretive Data Fasting glucose [...] [facility] ([place]) Blood 08/08/2024 9:43 AM DYNAMICS AX SOLUTION ARCHITECT 08/08/2024 9:45 AM DYNAMICS AX SOLUTION ARCHITECT us Matthieu Bautista MD LAB BLOOD ORDERABLES Final Resu lt [facility] ([place]) 1 [facility] [place] [address] * eGFR (08/07/2024 3:34 AM DYNAMICS AX SOLUTION ARCHITECT) eGFR >90 >=60 mL/min/1. 73 m2 Comment: [...] last reviewed 2021. Blood 08/07/2024 3:34 AM DYNAMICS AX SOLUTION ARCHITECT 08/07/2024 4:22 AM DYNAMICS AX SOLUTION ARCHITECT us Matthieu Bautista MD LAB BLOOD ORDERABLES Final Resu lt [facility] ([place]) 1 [facility] [place] [address] * Differential, auto (08/07/2024 3:34 AM DYNAMICS AX SOLUTION ARCHITECT) Neutrophil abs 1.6 1.5 - 6.5 K/cumm Imm gran abs 0.0 0.0 - 0.1 K/cumm [facility] ([place]) Lymphocyte abs 1.4 0.8 - 3.3 K/cumm [facility] ([place]) Monocyte abs 0.3 0.2 - 0.8 K/cumm [facility] ([place]) Eosinophil abs 0.1 0.0 - 0.5 K/cumm [facility] ([place]) Basophil abs 0.1 0.0 - 0.1 K/cumm [facility] ([place]) Neutrophil pct 45.9 % [facility] ([place]) Comment: Interpretive Data Percent cell count reference [...] revised on 2017. Blood 08/07/2024 3:34 AM DYNAMICS AX SOLUTION ARCHITECT 08/07/2024 4:22 AM DYNAMICS AX SOLUTION ARCHITECT us Matthieu Bautista MD LAB BLOOD ORDERABLES Final Resu lt [facility] ([place]) 1 [facility] [place] [address] * (ABNORMAL) CBC with auto differential (08/07/2024 3:34 AM DYNAMICS AX SOLUTION ARCHITECT) WBC 3.4(L) 3.8 - 9.9 K/cumm Hgb [...] - 0.01 K/cumm [facility] ([place]) Blood 08/07/2024 3:34 AM DYNAMICS AX SOLUTION ARCHITECT 08/07/2024 4:22 AM DYNAMICS AX SOLUTION ARCHITECT Matthieu Bautista MD LAB BLOOD ORDERABLES Final Resu lt [facility] ([place]) 1 [facility] [place] [address] * Phosphorus (08/07/2024 3:34 AM DYNAMICS AX SOLUTION ARCHITECT) Phosphorus, pl 3.3 2.3 - 4.5 mg/dL Blood 08/07/2024 3:34 AM DYNAMICS AX SOLUTION ARCHITECT 08/07/2024 4:22 AM DYNAMICS AX SOLUTION ARCHITECT Isael Vallejo MD LAB BLOOD ORDERABLES Final Resul t Performing Organization Address City/[facility]/ZIP Co de Phone Number [facility] ([place]) 1 [facility] [place] [address] * Magnesium (08/07/2024 3:34 AM DYNAMICS AX SOLUTION ARCHITECT) Magnesium 1.9 1.4 - 2.5 mg/dL Blood 08/07/2024 3:34 AM DYNAMICS AX SOLUTION ARCHITECT 08/07/2024 4:22 AM DYNAMICS AX SOLUTION ARCHITECT Matthieu Bautista MD LAB BLOOD ORDERABLES Final Resu lt Performing Organization Address City/[facility]/ZIP Co de Phone Number [facility] ([place]) 1 [facility] [place] [address] * (ABNORMAL) Bilirubin, direct (08/07/2024 3:34 AM DYNAMICS AX SOLUTION ARCHITECT) Bilirubin, direct 0.4(H) 0.1 - 0.3 mg/dL Blood 08/07/2024 3:34 AM DYNAMICS AX SOLUTION ARCHITECT 08/07/2024 4:22 AM DYNAMICS AX SOLUTION ARCHITECT Matthieu Bautista MD LAB BLOOD ORDERABLES Final Resu lt [facility] ([place]) 1 [facility] [place] [address] * (ABNORMAL) Comprehensive metabolic panel (08/07/2024 3:34 AM DYNAMICS AX SOLUTION ARCHITECT) Sodium 135 135 - 145 mmol/L Potassium, pl 3.5 3.3 - 4.9 mmol/L [facility] ([place]) Chloride 98 97 - 110 mmol/L [facility] ([place]) CO2 23 22 - 32 mmol/L [facility] ([place]) Anion gap 14 2 - 15 mmol/L [facility] ([place]) BUN 12 6 - 25 mg/dL [facility] ([place]) Creatinine 0.54(L) 0.80 - 1.30 [...] [facility] ([place]) Blood 08/07/2024 3:34 AM DYNAMICS AX SOLUTION ARCHITECT 08/07/2024 4:22 AM DYNAMICS AX SOLUTION ARCHITECT Matthieu Bautista MD LAB BLOOD ORDERABLES Final Resu lt [facility] ([place]) 1 [facility] [place] [address] * eGFR (08/06/2024 4:45 AM DYNAMICS AX SOLUTION ARCHITECT) eGFR >90 >=60 mL/min/1. 73 m2 Comment: [...] last reviewed 2021. Blood 08/06/2024 4:45 AM DYNAMICS AX SOLUTION ARCHITECT 08/06/2024 4:50 AM DYNAMICS AX SOLUTION ARCHITECT Matthieu Bautista MD LAB BLOOD ORDERABLES Final Resu lt Performing Organization Address City/[facility]/ZIP Co de Phone Number [facility] ([place]) 1 [facility] [place] [address] * Differential, auto (08/06/2024 4:45 AM DYNAMICS AX SOLUTION ARCHITECT) Neutrophil abs 1.6 1.5 - 6.5 K/cumm [...] revised on 2017. Blood 08/06/2024 4:45 AM DYNAMICS AX SOLUTION ARCHITECT 08/06/2024 4:50 AM DYNAMICS AX SOLUTION ARCHITECT us Matthieu Bautista MD LAB BLOOD ORDERABLES Final Resu lt [facility] ([place]) 1 [facility] [place] [address] * (ABNORMAL) CBC with auto differential (08/06/2024 4:45 AM DYNAMICS AX SOLUTION ARCHITECT) WBC 3.3(L) 3.8 - 9.9 K/cumm Hgb [...] [facility] ([place]) Blood 08/06/2024 4:45 AM DYNAMICS AX SOLUTION ARCHITECT 08/06/2024 4:50 AM DYNAMICS AX SOLUTION ARCHITECT us Matthieu Bautista MD LAB BLOOD ORDERABLES Final Resu lt Performing Organization Address City/[facility]/ZIP Co de Phone Number [facility] ([place]) 1 [facility] [place] [employer] [place] [address] * Magnesium (08/06/2024 4:45 AM DYNAMICS AX SOLUTION ARCHITECT) Magnesium 1.5 1.4 - 2.5 mg/dL Blood 08/06/2024 4:45 AM DYNAMICS AX SOLUTION ARCHITECT 08/06/2024 4:50 AM DYNAMICS AX SOLUTION ARCHITECT Matthieu Bautista MD LAB BLOOD ORDERABLES Final Resu lt [facility] ([place]) 1 [place] [address] * Bilirubin, direct (08/06/2024 4:45 AM DYNAMICS AX SOLUTION ARCHITECT) Bilirubin, direct 0.3 0.1 - 0.3 mg/dL Comment: Hemolysis present. Results may be affected. Slightly Hemolyzed Specimen Blood 08/06/2024 4:45 AM DYNAMICS AX SOLUTION ARCHITECT 08/06/2024 4:50 AM DYNAMICS AX SOLUTION ARCHITECT Matthieu Bautista MD LAB BLOOD ORDERABLES Final Resu lt Performing Organization Address City/[facility]/ZIP Co de Phone Number [facility] ([place]) 1 [place] [address] * Ethanol (08/06/2024 4:45 AM DYNAMICS AX SOLUTION ARCHITECT) Pathologist [facility] Ethanol <10 <=10 mg/dL Comment: Interpretive Data Legal limit of intoxication > or = 80 mg/dL Levels > or = 400 mg/dL are potentially TOXIC. Current interpretive data was last revised on 2018. Blood 08/06/2024 4:45 AM DYNAMICS AX SOLUTION ARCHITECT 08/06/2024 4:50 AM DYNAMICS AX SOLUTION ARCHITECT Matthieu Bautista MD LAB BLOOD ORDERABLES Final Resu lt [facility] ([place]) 1 [place] [address] * (ABNORMAL) Comprehensive metabolic panel (08/06/2024 4:45 AM DYNAMICS AX SOLUTION ARCHITECT) Sodium 134(L) 135 - 145 mmol/L Potassium, pl 3.5 3.3 - 4.9 mmol/L [facility] ([place]) Chloride 98 97 - 110 mmol/L [facility] ([place]) CO2 15(L) 22 - 32 mmol/L [facility] ([place]) Anion gap 21(H) 2 - 15 mmol/L [facility] ([place]) BUN 9 6 - 25 mg/dL [facility] ([place]) Creatinine 0.61(L) 0.80 - 1.30 mg/dL [...] Slightly Hemolyzed Specimen Blood 08/06/2024 4:45 AM DYNAMICS AX SOLUTION ARCHITECT 08/06/2024 4:50 AM DYNAMICS AX SOLUTION ARCHITECT us Matthieu Bautista MD LAB BLOOD ORDERABLES Final Resu lt [facility] ([place]) 1 [facility] [place] [address] * eGFR (08/05/2024 10:48 AM DYNAMICS AX SOLUTION ARCHITECT) eGFR >90 >=60 mL/min/1. 73 m2 Comment: [...] reviewed 2021. Blood 08/05/2024 10:4 8 AM DYNAMICS AX SOLUTION ARCHITECT 08/05/2024 10:50 AM DYNAMICS AX SOLUTION ARCHITECT us Gayla Nova MD LAB BLOOD ORDERABLES Final Re sult [facility] ([place]) 1 [facility] [place] [address] * Drugs of Abuse Screen, Urine without Confirmation (08/05/2024 10:48 AM DYNAMICS AX SOLUTION ARCHITECT) Pathologist [facility] Amphetamine, ur Not Detected CutOff 500ng/mL Comment: Interpretive Data - Amphetamines: Samples containing greater than 500 ng/mL d-methamphetamine or other cross-reacting amphetamine compounds are reported as positive. Amphetamine immunoassays are subject to significant false positive rates due to cross-reactivity of non-amphetamine drugs. Confirmatory testing required for definitive results. Current Interpretive Data was last reviewed 2023. Barbiturates, ur Not Detected CutOff 200ng/mL [facility] ([place]) Comment: Interpretive Data - Barbiturates: Samples [...] 2023. Methadone, ur Not Detected CutOff 300ng/mL [facility] ([place]) Comment: Interpretive Data - Methadone: Samples containing greater than 300 ng/mL d,l-methadone or other cross-reacting compounds are reported as positive. False positive and false negative results are possible. Confirmatory testing required for definitive results. Current Interpretive Data was last reviewed 2023. Opiates, ur Not Detected CutOff 300ng/mL [facility] ([place]) Comment: Interpretive Data - Opiates: Samples containing greater than 300 ng/mL morphine or other cross-reacting compounds are reported as positive. False positive and false negative results are possible. Confirmatory testing required for definitive results. Current Interpretive Data was last reviewed 2023. Oxycodone, ur Not Detected CutOff 100ng/mL [facility] ([place]) Comment: Interpretive Data - Oxycodone: Samples containing greater than 100 ng/mL oxycodone or other cross-reacting compounds are reported as positive. False positive and false negative results are possible. Confirmatory testing required for definitive results. Current Interpretive Data was last reviewed 2023. Phencyclidine, ur Not Detected CutOff 25 ng/mL [facility] ([place]) Comment: Interpretive Data - Phencyclidine: Samples containing greater than 25 ng/mL phencyclidine or other cross-reacting compounds are reported as positive. False positive and false negative results are possible. Confirmatory testing required for definitive results. Current Interpretive Data was last reviewed 2023. Urine Creatinine 71 mg/dL [facility] ([place]) Comment: Interpretive Data Urine Creatinine: < 10 mg/dL is extremely dilute = or > 10 but < 20 mg/dL is dilute = or > 20 mg/dL is normal Current Interpretive Data was last revised on 2017. Urine 08/05/2024 10:4 8 AM DYNAMICS AX SOLUTION ARCHITECT 08/05/2024 10:50 AM DYNAMICS AX SOLUTION ARCHITECT Narrative [facility] ([place]) - 08/05/2024 11:21 AM DYNAMICS AX SOLUTION ARCHITECT Drug of Abuse screening is performed by immunoassay for medical purposes only. This is not to be used for Pain Management purposes. us Gayla Nova MD LAB URINE ORDERABLES Final Re sult [facility] ([place]) 1 [facility] [place] [address] * (ABNORMAL) CBC without differential (08/05/2024 10:48 AM DYNAMICS AX SOLUTION ARCHITECT) WBC 5.5 3.8 - 9.9 K/cumm Hgb 13.4 13.0 - 17.5 g/dL [facility] ([place]) Hct 38.4(L) 38.9 - 50.3 % [facility] ([place]) Plt 129(L) 150 - 400 K/cumm [facility] ([place]) MPV 10.0 9.1 - 12.3 fL [facility] ([place]) RBC 4.31 4.30 - 5.80 M/cumm [facility] ([place]) MCV 89.1 81.3 - 96.4 fL [facility] ([place]) MCH 31.1 27.1 - 33.3 pg [facility] ([place]) MCHC 34.9 32.3 - 35.7 g/dL [facility] ([place]) RDW CV 13.4 11.1 - 14.9 % [facility] ([place]) RDW SD 44.1 35.7 - 48.1 fL [facility] ([place]) NRBC abs 0.00 0.00 - 0.01 K/cumm [facility] ([place]) Blood 08/05/2024 10:4 8 AM DYNAMICS AX SOLUTION ARCHITECT 08/05/2024 10:50 AM DYNAMICS AX SOLUTION ARCHITECT us Gayla Nova MD LAB BLOOD ORDERABLES Final Re sult [facility] ([place]) 1 [facility] [place] [address] * (ABNORMAL) Comprehensive metabolic panel (08/05/2024 10:48 AM DYNAMICS AX SOLUTION ARCHITECT) Sodium 134(L) 135 - 145 mmol/L Potassium, pl 3.4 3.3 - 4.9 mmol/L [facility] ([place]) Chloride 97 97 - 110 mmol/L [facility] ([place]) CO2 20(L) 22 - 32 mmol/L [facility] ([place]) Anion gap 18(H) 2 - 15 mmol/L [facility] ([place]) BUN 11 6 - 25 mg/dL [facility] ([place]) Creatinine 0.74(L) 0.80 - 1.30 mg/dL [facility] ([place]) Glucose 171 70 - 199 mg/dL [facility] ([place]) Comment: Interpretive Data Fasting glucose >/= [...] Hemolyzed Specimen Blood 08/05/2024 10:4 8 AM DYNAMICS AX SOLUTION ARCHITECT 08/05/2024 10:50 AM DYNAMICS AX SOLUTION ARCHITECT Gayla Nova MD LAB BLOOD ORDERABLES Final Re sult [facility] ([place]) 1 [facility] Department of Laboratories [place], [place] [id number] * Hepatitis C antibody Blood (04/27/2024 2:14 [...] us Smith Frederick MD LAB MICROBIOLOGY - NERAL ORDERABLES Final Result [facility] [address] [facility] [place] [address] from Last 3 Months or Most Recently Relevant to Health Maintenance Insurance * Guarantor: [employer] Account Type Relation to Patient Date of Phone Billing Address Workers Comp 1975 Advance Directives For more information, please contact: [phone] * Full Code (Latest Code Status on [...] 4:14 PM 06/09/2021 3:47 PM Care Teams Water Project Manager Relationship Specialty Start Date End Date Hans Toro MD [address] [address] PCP - General Internal Medicine 04/26/24
--- OUTSIDE RECORDS SUMMARY | 2024-11-01 13:27 | XMS_ITS ---
Author Organization [facility] Care Team Providers Care Director Account Management Name Role Phone KODY COLIN Unavailable Unavailable Ampadu, Kendall Unavailable Unavailable Allergies and adverse reactions No Known Allergies Care Team Name Role Address Phone Organization Dates Kendall Ampadu PCP [address] [place], [place], [facility], [place] (Office): : [facility] 03/25/2021 - 04/09/2021 COLIN GATES Attending Physician [address] [place], [place], [facility], [place] (Cell): [facility] 03/25/2021 - 04/09/2021 Immunizations Immunization Status Vaccine Details Vaccine Code CodeSystem Luis Angel e Notes SARS-COV-2 (COVID-19) completed SARS-COV-2 (COVID-19) vaccine, mRNA, spike protein, LNP, preservative free, 100 mcg/0.5mL dose or 50 mcg/0.25mL dose Mfg: moderna Step 2 of Multi-step with next step required 207 CVX created date: 03/31/2021 administered date: 01/01/2021 SARS-COV-2 (COVID-19) completed SARS-COV-2 (COVID-19) vaccine, mRNA, spike protein, LNP, preservative free, 100 mcg/0.5mL dose or 50 mcg/0.25mL dose Mfg: moderna Step 1 of Multi-step with next step [...] 1 ALCOHOL ABUSE WITH WITHDRAWAL, UNSPECIFIED 03/25/[address] active 2 ANEMIA, UNSPECIFIED 03/25/[address] active 3 ANXIETY DISORDER, UNSPECIFIED 03/25/[address] active 4 DYSPHAGIA, OROPHARYNGEAL PHASE 03/25/[address] active 5 ELEVATION OF LEVELS OF LIVER TRANSAMINASE LEVELS 03/25/[address] active 6 ESSENTIAL (PRIMARY) HYPERTENSION 03/25/[address] active 7 HYPERLIPIDEMIA, UNSPECIFIED 03/25/[address] active 8 MAJOR DEPRESSIVE DISORDER, SINGLE EPISODE, UNSPECIFIED 03/25/[address] active 9 MUSCLE WEAKNESS (GENERALIZED) 03/25/[address] active 10 NEED FOR ASSISTANCE WITH PERSONAL CARE 03/25/[id number] active 11 NICOTINE DEPENDENCE, CIGARETTES, UNCOMPLICATED 03/25/[address] active 12 OTHER ABNORMALITIES OF GAIT AND MOBILITY 03/25/[address] active 13 PERSONAL HISTORY OF OTHER DISEASES OF THE DIGESTIVE SYSTEM 03/25/[address] active 14 POLYNEUROPATHY, UNSPECIFIED 03/25/[address] active 15 RESTLESS LEGS SYNDROME 03/25/[address] active 16 SCHIZOAFFECTIVE DISORDER, UNSPECIFIED 03/25/[address] active 17 UNSPECIFIED CONVULSIONS 03/25/[address] active Reason for Referral No Reasons for Referral Entered Social History Social History Observation Description Start Date End Date Code Code System Current Smoking Status Tobacco smoking consumption unknown 304356504 SNOMED CT Sex Assigned At Male 1975 89664-1 [facility] Vital Signs Code Code System Vitals Name Values and Units Timing Information 91096-6 [facility] Pain Level Value=0.0 04/09/2021 22319-3 [facility] Weight Ildmh=982.0 Units=Lbs 47578-4 [facility] O2 % BldC Oximetry Value=95.0 Units= % 03/29/2021 9279-1 [facility] Respiratory Rate Value=22.0 Units=/m in 03/29/2021 8867-4 [facility] Heart rate Qcktg=248.0 Units=/min 03/29/2021 8310-5 [facility] Body Temperature Value=98.6 Units= F 03/29/2021 8462-4 [facility] Blood Pressure-Diastolic Value=88 Un its=mmHg 03/29/2021 8480-6 [facility] Blood Pressure-Systolic Ckyeb=493 Un its=mmHg 03/29/2021
== END 2024-11-01 12:47 | disposition home or self-care (01) ==
PROVIDERS: PCP Nurse Practitioner Family; Visit Provider Internal Medicine Infectious Disease
DX: H90.3 Sensorineural hearing loss, bilateral (principal); H93.13 Tinnitus, bilateral; R42 Dizziness and giddiness
CPT/HCPCS: 92557; 92567